=== PATIENT | male | born 1930 | race Caucasian/White ===

== ENCOUNTER 2016-12-25 07:59 | Emergency (ER) | payer MEDICARE, BC ==
--- NOTE | 2016-12-25 08:36 | ED ---
General Adult HPI - General Chief complaint: Recheck/Abnormal Lab/Rx Stated complaint: GAINED 7 LBS IN 1 DAY Time Seen by Provider: 12/25/16 08:23 Source: patient, family, RN notes reviewed Mode of arrival: wheelchair Limitations: no limitations - History of Present Illness Initial comments: Patient is a pleasant 86-year-old male presenting to the emergency department with concerns over weight gain. Patient has been home from [place] for 3 days. Family is concerned that patient gained 7 pounds since yesterday. They do regularly check his weight. Patient denies dyspnea. Patient is a poor historian and majority of history is taken from the son. Patient does have a history of renal and liver problems. Patient questions if he could have some chest discomfort earlier however family states this is chronic. - Related Data Home Medications Medication Instructions Recorded Confirmed Pantoprazole Sodium [Protonix] 40 mg PO DAILY 01/31/14 12/25/16 Atorvastatin [Lipitor] 10 mg PO HS 07/18/14 12/25/16 Metoprolol Tartrate [Lopressor] 25 mg PO BID 07/18/14 12/25/16 Spironolactone [Aldactone] 25 mg PO DAILY 07/18/14 12/25/16 Ascorbic Acid [Vitamin C] 500 mg PO HS 02/05/16 12/25/16 Donepezil [Aricept] 5 mg PO HS 02/05/16 12/25/16 Ferrous Sulfate [Iron (65 MG 325 mg PO DAILY 02/05/16 12/25/16 Elemental)] Furosemide [Lasix] 40 mg PO BID 02/05/16 12/25/16 Insulin Glargine,Hum.rec.anlog 16 units SQ DAILY 02/05/16 12/25/16 [Toujeo Solostar] Linagliptin [Tradjenta] 5 mg PO DAILY 02/05/16 12/25/16 Losartan [Cozaar] 25 mg PO HS 06/21/16 12/25/16 Nitroglycerin Sl Tabs [Nitrostat] 0.4 mg SUBLINGUAL Q5M PRN 06/21/16 12/25/16 Isosorbide Mononitrate ER [Imdur] 30 mg PO DAILY 12/25/16 12/25/16 Previous Rx's Medication Instructions Recorded Citalopram Hydrobromide [CeleXA] 10 mg PO DAILY #30 tab 04/07/14 Digoxin [Lanoxin] 125 mcg PO DAILY #0 07/24/14 Allergies Allergy/AdvReac Type Severity Reaction Status Date / Time No Known Allergies Allergy Verified 06/21/16 13:56 Review of Systems ROS Statement: Those systems with pertinent positive or pertinent negative responses have been documented in the HPI. ROS Other: All systems not noted in ROS Statement are negative. Constitutional: Denies: fever Eyes: Denies: eye pain ENT: Denies: ear pain Respiratory: Denies: cough, dyspnea Cardiovascular: Denies: chest pain Endocrine: Denies: fatigue Gastrointestinal: Denies: abdominal pain Genitourinary: Denies: urgency Musculoskeletal: Denies: back pain Skin: Denies: rash Neurological: Denies: headache Past Medical History Past Medical History: Coronary Artery Disease (CAD), Chest Pain / Angina, Heart Failure, Diabetes Mellitus, GI Bleed, Hyperlipidemia, Hypertension, Memory Impairment, Osteoarthritis (OA), Prostate Disorder, Renal Disease, Skin Disorder Additional Past Medical History / Comment(s): ANEMIA, IRON DEFICIENCY. RECENT SL COUGH. Memory loss has been progressivley getting worse. HAS PRE-CA LESIONS FACE. cysts on kidney, incont of urine History of Any Multi-Drug Resistant Organisms: None Reported Past Surgical History: AICD, Appendectomy, Cholecystectomy, Coronary Bypass/CABG , Heart Catheterization With Stent, Prostate Surgery, Tonsillectomy Additional Past Surgical History / Comment(s): AICD, ST CECE. CABG 1994, 1982. RESECTIO PSEUDOANEURYSM RT FEM ARTERY. TURP. pt had battery to aicd replaced this may 2014, RT EYE SX(HAD FLUID BEHIND EYE) Past Anesthesia/Blood Transfusion Reactions: No Reported Reaction Additional Past Anesthesia/Blood Transfusion Reaction / Comment(s): LAST TRANSFUSION 12/2013 Date of Last Stent Placement:: 2008 Type of Cardiac Device: Permanent Pacemaker, AICD Device Placement Date:: 2008 Past Psychological History: Anxiety Additional Psychological History / Comment(s): HX OF HALLUCINATIONS, 01/2014, PER DR MCCARTHY Smoking Status: Former smoker Past Alcohol Use History: None Reported Additional Past Alcohol Use History / Comment(s): STARTED SMOKING AT AGE [age] CIG/PER DAY, QUIT 1971 THEN STRATED FOR FEW MONTHS THEN QUIT. Past Drug Use History: None Reported - Past Family History Mother Family Medical History: Diabetes Mellitus Father Additional Family Medical History / Comment(s): emphysema General Exam Limitations: no limitations General appearance: alert, in no apparent distress Head exam: Present: atraumatic Eye exam: Present: PERRL, EOMI, scleral icterus ENT exam: Present: normal oropharynx Neck exam: Present: normal inspection Respiratory exam: Present: normal lung sounds bilaterally Cardiovascular Exam: Present: regular rate, normal rhythm GI/Abdominal exam: Present: soft. Absent: tenderness Extremities exam: Present: normal inspection Neurological exam: Present: alert Psychiatric exam: Present: normal affect, normal mood Skin exam: Present: other (Skin does appear somewhat jaundiced however this could be complicated by tanning of the skin.) Course Vital Signs 12/25/16 08:09 Temperature 97.9 F Pulse Rate 64 Respiratory 16 Rate Blood Pressure 127/60 O2 Sat by Pulse 97 Oximetry EKG Findings - EKG Comments: EKG Findings:: Paced rhythm at 64. QRS 144. QT 456. QTc 470. Left axis. Nonspecific intraventricular block. Nonspecific ST-T. Inferior Q waves Medical Decision Making - Medical Decision Making Patient reevaluated and resting comfortably in bed. Patient remained symptom- free. Patient still denies dyspnea. Daughter is present and comfortable with discharge home. She states she does have a plan for Lasix administration based on weight. Patient currently not on Lasix because his weight was okay prior to today. Case was discussed in detail with Dr. Mccarthy who does recommend discharge and 20 mg Lasix IV prior to this. - Lab Data Result diagrams: 12/25/16 08:32 12/25/16 08:32 Lab Results 12/25/16 12/25/16 12/25/16 Range/Units 08:32 08:32 08:32 WBC 6.9 (3.8-10.6) k/uL RBC 3.07 L (4.30-5.90) m/uL Hgb 9.7 L (13.0-17.5) gm/dL Hct 30.8 L (39.0-53.0) % MCV 100.5 H (80.0-100.0) fL MCH 31.5 (25.0-35.0) pg MCHC 31.4 (31.0-37.0) g/dL RDW 16.9 H (11.5-15.5) % Plt Count 118 L (150-450) k/uL Neutrophils % 83 % Lymphocytes % 7 % Monocytes % 6 % Eosinophils % 2 % Basophils % 1 % Neutrophils # 5.7 (1.3-7.7) k/uL Lymphocytes # 0.5 L (1.0-4.8) k/uL Monocytes # 0.4 (0-1.0) k/uL Eosinophils # 0.2 (0-0.7) k/uL Basophils # 0.1 (0-0.2) k/uL Hypochromasia Slight Anisocytosis Slight Macrocytosis Slight PT (9.0-12.0) sec INR (<1.1) APTT (22.0-30.0) sec Sodium 144 (137-145) mmol/L Potassium 4.9 (3.5-5.1) mmol/L Chloride 117 H (98-107) mmol/L Carbon Dioxide 16 L (22-30) mmol/L Anion Gap 11 mmol/L BUN 58 H (9-20) mg/dL Creatinine 1.42 H (0.66-1.25) mg/dL Est GFR (MDRD) Af Amer 57 (>60 ml/min/1.73 sqM) Est GFR (MDRD) Non-Af 47 (>60 ml/min/1.73 sqM) Glucose 115 H (74-99) mg/dL Calcium 8.8 (8.4-10.2) mg/dL Total Bilirubin 1.7 H (0.2-1.3) mg/dL AST 26 (17-59) U/L ALT 44 (21-72) U/L Alkaline Phosphatase 82 (38-126) U/L Total Creatine Kinase 83 (55-170) U/L CK-MB (CK-2) 2.7 H* (0.0-2.4) ng/mL CK-MB (CK-2) Rel Index 3.3 Troponin I 0.025 (0.000-0.034) ng/mL NT-Pro-B Natriuret Pep pg/mL Total Protein 6.8 (6.3-8.2) g/dL Albumin 4.0 (3.5-5.0) g/dL Urine Color Urine Appearance (Clear) Urine pH (5.0-8.0) Ur Specific [place] (1.001-1.035) Urine Protein (Negative) Urine Glucose (UA) (Negative) Urine Ketones (Negative) Urine Blood (Negative) Urine Nitrite (Negative) Urine Bilirubin (Negative) Urine Urobilinogen (<2.0) mg/dL Ur Leukocyte Esterase (Negative) Urine RBC (0-5) /hpf Urine WBC (0-5) /hpf Ur Squamous Epith Cells (0-4) /hpf Urine Bacteria (None) /hpf 12/25/16 12/25/16 12/25/16 Range/Units 08:32 08:32 09:28 WBC (3.8-10.6) k/uL RBC (4.30-5.90) m/uL Hgb (13.0-17.5) gm/dL Hct (39.0-53.0) % MCV (80.0-100.0) fL MCH (25.0-35.0) pg MCHC (31.0-37.0) g/dL RDW (11.5-15.5) % Plt Count (150-450) k/uL Neutrophils % % Lymphocytes % % Monocytes % % Eosinophils % % Basophils % % Neutrophils # (1.3-7.7) k/uL Lymphocytes # (1.0-4.8) k/uL Monocytes # (0-1.0) k/uL Eosinophils # (0-0.7) k/uL Basophils # (0-0.2) k/uL Hypochromasia Anisocytosis Macrocytosis PT 11.5 (9.0-12.0) sec INR 1.2 (<1.1) APTT 24.2 (22.0-30.0) sec Sodium (137-145) mmol/L Potassium (3.5-5.1) mmol/L Chloride (98-107) mmol/L Carbon Dioxide (22-30) mmol/L Anion Gap mmol/L BUN (9-20) mg/dL Creatinine (0.66-1.25) mg/dL Est GFR (MDRD) Af Amer (>60 ml/min/1.73 sqM) Est GFR (MDRD) Non-Af (>60 ml/min/1.73 sqM) Glucose (74-99) mg/dL Calcium (8.4-10.2) mg/dL Total Bilirubin (0.2-1.3) mg/dL AST (17-59) U/L ALT (21-72) U/L Alkaline Phosphatase (38-126) U/L Total Creatine Kinase (55-170) U/L CK-MB (CK-2) (0.0-2.4) ng/mL CK-MB (CK-2) Rel Index Troponin I (0.000-0.034) ng/mL NT-Pro-B Natriuret Pep 4220 pg/mL Total Protein (6.3-8.2) g/dL Albumin (3.5-5.0) g/dL Urine Color Yellow Urine Appearance Clear (Clear) Urine pH 5.0 (5.0-8.0) Ur Specific [place] 1.015 (1.001-1.035) Urine Protein Trace H (Negative) Urine Glucose (UA) Negative (Negative) Urine Ketones Negative (Negative) Urine Blood Small H (Negative) Urine Nitrite Negative (Negative) Urine Bilirubin Negative (Negative) Urine Urobilinogen <2.0 (<2.0) mg/dL Ur Leukocyte Esterase Trace H (Negative) Urine RBC 15 H (0-5) /hpf Urine WBC 7 H (0-5) /hpf Ur Squamous Epith Cells <1 (0-4) /hpf Urine Bacteria Rare H (None) /hpf - Radiology Data Radiology results: image reviewed (This x-ray does show cardiomegaly and some interstitial prominence. Stable right hilar density.) Disposition Clinical Impression: Congestive heart failure Disposition: HOME SELF-CARE Condition: Stable Instructions: Heart Failure (ED) Additional Instructions: Please follow-up with Dr. Mccarthy in the next couple of days for recheck. Return for difficulty in breathing, increased weight gain, fevers, worsening symptoms or other concerns. Referrals: Boni Mccarthy MD [Primary Care Provider] - 1-2 days
[2016-12-25 08:57] LABS: Anisocytosis Slight; Basophils # (A) 0.1 k/uL (0-0.2); Basophils % (A) 1 %; CH 31.7; CHCM 31.8; Eosinophils # (A) 0.2 k/uL (0-0.7); Eosinophils % (A) 2 %; HCT 30.8 % (39.0-53.0); HDW 3.21; HGB 9.7 gm/dL (13.0-17.5); Hypochromasia Slight; Luc # (Auto) 0.08; Luc % (Auto) 1; Lymphocytes # (A) 0.5 k/uL (1.0-4.8); Lymphocytes % (A) 7 %; MCH 31.5 pg (25.0-35.0); MCHC 31.4 g/dL (31.0-37.0); MCV 100.5 fL (80.0-100.0); Macrocytosis Slight; Mean Platelet Volume 8.4; Monocytes # (A) 0.4 k/uL (0-1.0); Monocytes % (A) 6 %; Neutrophils # (A) 5.7 k/uL (1.3-7.7); Neutrophils % (A) 83 %; RBC 3.07 m/uL (4.30-5.90); RDW 16.9 % (11.5-15.5); WBC 6.9 k/uL (3.8-10.6); WBC (Perox) 6.81
[2016-12-25 09:03] LABS: INR 1.2 (<1.1); Partial Thromboplastin Time 24.2 sec (22.0-30.0); Prothrombin Time 11.5 sec (9.0-12.0)
[2016-12-25 09:05] LABS: Calcium 8.8 mg/dL (8.4-10.2); Potassium 4.9 mmol/L (3.5-5.1); Total Bilirubin 1.7 mg/dL (0.2-1.3); Total Protein 6.8 g/dL (6.3-8.2)
--- NOTE | 2016-12-25 09:19 | XR ---
EXAMINATION TYPE: XR chest 2V DATE OF EXAM: 12/25/2016 8:59 AM COMPARISON: 02/05/2016 an 07/20/2014 HISTORY: 86-year-old male with weakness and left lower chest pain TECHNIQUE: AP and lateral views FINDINGS: Left anterior chest wall ICD generator with right atrial and right ventricular leads. Median sternoto my wires are present. Rounded right hilar density. Diffuse interstitial prominence similar to prior. Vascular crowding due to lower lung volumes. No kimberlee consolidation or significant pleural effusion seen. IMPRESSION: 1. Cardiomegaly with diffuse interstitial prominence which may in part be chronic. Correlate for pulm onary vascular congestion. 2. Rounded right hilar density stable from 07/20/2014 suggests enlargement of the central pulmonary a rteries and pulmonary arterial hypertension. 3. No acute change otherwise seen.
[2016-12-25 09:39] LABS: Troponin I 0.025 ng/mL (0.000-0.034)
[2016-12-25 09:40] LABS: Creatine Kinase MB 2.7 ng/mL (0.0-2.4)
[2016-12-25 09:56] LABS: Appearance,Urine Clear (Clear); Bacteria,Urine Rare /hpf; Bilirubin,Urine Negative (Negative); Glucose,Urine (UA) Negative (Negative); Ketones,Urine Negative (Negative); Leukocyte Esterase,Urine Trace (Negative); Nitrite,Urine Negative (Negative); Particle Count 1586; Protein,Urine Trace (Negative); RBC,Urine 15 /hpf (0-5); Specific Gravity,Urine 1.015 (1.001-1.035); Squamous Epithelial Cell,Urine <1 /hpf (0-4); UA Billing (MACRO vs. MICRO) MICRO; Urobilinogen,Urine <2.0 mg/dL (<2.0); WBC,Urine 7 /hpf (0-5)
[2016-12-25] MEDS ORDERED: FUROSEMIDE 10 MG/ML 4 ML VIAL IV STA (10:32)
[2016-12-25 10:51] VITALS: BP 144/62; PULSE 63; RESP 18; TEMP 97.6
== END 2016-12-25 10:54 | disposition home or self-care (01) ==
LOC: EC 07:59
DX: I50.9 Heart failure, unspecified (principal); I51.7 Cardiomegaly; R91.8 Other nonspecific abnormal finding of lung field; E11.9 Type 2 diabetes mellitus without complications; E78.5 Hyperlipidemia, unspecified; I10 Essential (primary) hypertension; D50.9 Iron deficiency anemia, unspecified; I25.10 Atherosclerotic heart disease of native coronary artery without angina pectoris; Z87.891 Personal history of nicotine dependence; Z79.4 Long term (current) use of insulin; Z79.899 Other long term (current) drug therapy; Z87.448 Personal history of other diseases of urinary system; Z86.79 Personal history of other diseases of the circulatory system; Z87.19 Personal history of other diseases of the digestive system; Z95.810 Presence of automatic (implantable) cardiac defibrillator; Z95.1 Presence of aortocoronary bypass graft
CPT/HCPCS: 36415; 93005; 83880; 80053; 82550; 82553; 84484; 85025; 85610; 85730; 81001; 71020; 99284; 96374; J1940

== ENCOUNTER 2016-12-27 14:54 | Inpatient (IN) | payer MEDICARE, BC ==
--- NOTE | 2016-12-27 17:00 | XR ---
EXAMINATION TYPE: XR chest 2V DATE OF EXAM: 12/27/2016 4:54 PM COMPARISON: 12/25/2016 INDICATION: Flulike symptoms, pain TECHNIQUE: Single frontal view of the chest is obtained. FINDINGS: The heart size is prominent. The pulmonary vasculature is prominent. Diffuse increased lung markings are present. Correlate for early pulmonary edema. Small posterior ple ural effusions are present on the lateral projection. Electronic device overlies left chest. IMPRESSION: 1. Findings suggestive for early congestive heart failure. Clinical correlation and follow-up is shakeel mmended.
[2016-12-27] MEDS ORDERED: OSELTAMIVIR 75 MG CAP PO STA (17:26)
[2016-12-27] MEDS ORDERED: FUROSEMIDE 10 MG/ML 4 ML VIAL IV STA (17:26)
--- NOTE | 2016-12-27 17:35 | ED ---
General Adult HPI - General Chief complaint: Upper Respiratory Infection Stated complaint: flu symptoms/SOB Time Seen by Provider: 12/27/16 16:07 Source: patient, family, RN notes reviewed, old records reviewed Mode of arrival: wheelchair Limitations: no limitations - History of Present Illness Initial comments: Chief complaint and history of present illness a 86-year-old male was seen emergency room 3 days ago. At that time he was shown to have mildly increased pulmonary congestion. He was given Lasix in emergency room diuresis and felt much better. Daughter reports she had 2 good days at home and then today she noticed he was coughing productive sounding cough and lower extremity swelling. The patient has not been on Lasix while at home for the past 2 days. Patient did not receive a flu shot this year. - Related Data Home Medications Medication Instructions Recorded Confirmed Pantoprazole Sodium [Protonix] 40 mg PO DAILY 01/31/14 12/27/16 Atorvastatin [Lipitor] 10 mg PO HS 07/18/14 12/27/16 Metoprolol Tartrate [Lopressor] 25 mg PO BID 07/18/14 12/27/16 Ascorbic Acid [Vitamin C] 500 mg PO HS 02/05/16 12/27/16 Donepezil [Aricept] 5 mg PO HS 02/05/16 12/27/16 Ferrous Sulfate [Iron (65 MG 325 mg PO DAILY 02/05/16 12/27/16 Elemental)] Furosemide [Lasix] 40 mg PO DIRECTED PRN 02/05/16 12/27/16 Insulin Glargine,Hum.rec.anlog 16 units SQ DAILY 02/05/16 12/27/16 [Toujeo Solostar] Linagliptin [Tradjenta] 5 mg PO DAILY 02/05/16 12/27/16 Losartan [Cozaar] 25 mg PO HS 06/21/16 12/27/16 Nitroglycerin Sl Tabs [Nitrostat] 0.4 mg SUBLINGUAL Q5M PRN 06/21/16 12/27/16 Isosorbide Mononitrate ER [Imdur] 30 mg PO DAILY 12/25/16 12/27/16 Tamsulosin HCl [Flomax] 0.4 mg PO QAM 12/27/16 12/27/16 Previous Rx's Medication Instructions Recorded Citalopram Hydrobromide [CeleXA] 10 mg PO DAILY #30 tab 04/07/14 Digoxin [Lanoxin] 125 mcg PO DAILY #0 07/24/14 Allergies Allergy/AdvReac Type Severity Reaction Status Date / Time No Known Allergies Allergy Verified 12/27/16 15:58 Review of Systems ROS Statement: Those systems with pertinent positive or pertinent negative responses have been documented in the HPI. Review of systems. The patient denies any headache or visual acuity changes. Denies chest pain but he has a productive sounding cough. Sounds but per daughter. No abdominal pain no nausea no vomiting no diarrhea. No change in appetite. He does have peripheral leg edema increased today over yesterday. All systems are reviewed. Past medical problems significant for iron deficiency anemia, cysts on kidneys, precancerous lesions on the face. The patient has an AICD other medical problems include previous angina, diabetes mellitus, previous GI bleed, hyperlipidemia, hypertension, memory impairment, osteoarthritis, prostate disorder, renal failure, stage III. Also past history of anxiety. ROS Other: All systems not noted in ROS Statement are negative. Past Medical History Past Medical History: Coronary Artery Disease (CAD), Chest Pain / Angina, Heart Failure, Diabetes Mellitus, GI Bleed, Hyperlipidemia, Hypertension, Memory Impairment, Osteoarthritis (OA), Prostate Disorder, Renal Disease, Skin Disorder Additional Past Medical History / Comment(s): ANEMIA, IRON DEFICIENCY. RECENT SL COUGH. Memory loss has been progressivley getting worse. HAS PRE-CA LESIONS FACE. cysts on kidney, incont of urine History of Any Multi-Drug Resistant Organisms: None Reported Past Surgical History: AICD, Appendectomy, Cholecystectomy, Coronary Bypass/CABG , Heart Catheterization With Stent, Prostate Surgery, Tonsillectomy Additional Past Surgical History / Comment(s): AICD, ST CECE. CABG 1994, 1982. RESECTIO PSEUDOANEURYSM RT FEM ARTERY. TURP. pt had battery to aicd replaced this may 2014, RT EYE SX(HAD FLUID BEHIND EYE) Past Anesthesia/Blood Transfusion Reactions: No Reported Reaction Additional Past Anesthesia/Blood Transfusion Reaction / Comment(s): LAST TRANSFUSION 12/2013 Date of Last Stent Placement:: 2008 Type of Cardiac Device: Permanent Pacemaker, AICD Device Placement Date:: 2008 Past Psychological History: Anxiety Additional Psychological History / Comment(s): HX OF HALLUCINATIONS, 01/2014, PER DR SETHI Smoking Status: Former smoker Past Alcohol Use History: None Reported Additional Past Alcohol Use History / Comment(s): STARTED SMOKING AT AGE [age] CIG/PER DAY, QUIT 1971 THEN STRATED FOR FEW MONTHS THEN QUIT. Past Drug Use History: None Reported - Past Family History Mother Family Medical History: Diabetes Mellitus Father Additional Family Medical History / Comment(s): emphysema General Exam - General Exam Comments Initial Comments: General: The patient is awake and alert, complains of a cough and being short of breath. Vital signs show temperature 99.3 pulse 71 respiratory rate 20 pulse ox 95% room air blood pressure 135/77 Eye: Pupils are equal, round and reactive to light, extra-ocular movements are intact ; there is normal conjunctiva bilaterally. No signs of icterus. Ears, nose, mouth and throat: There are moist mucous membranes Neck: The neck is supple, there is no tenderness Cardiovascular: Soft blowing murmur over both aortic and mitral valve areas. Respiratory: Productive sounding cough, And rales right base area and Gastrointestinal: Soft, non-distended, non-tender abdomen without masses or organomegaly noted. Small lipoma versus small ventral hernia. Back: There is no tenderness to palpation in the midline. There is no obvious deformity. No rashes noted. Musculoskeletal: Normal range of motion of extremities. Pedal edema, pitting. Vascular status intact. Neurological: No complaints of or any evidence of neuro deficits. Skin: Skin is warm and dry and no rashes or lesions are noted. Limitations: no limitations Course Vital Signs 12/27/16 12/27/16 15:15 18:01 Temperature 99.3 F 97.6 F Pulse Rate 71 70 Respiratory 20 18 Rate Blood Pressure 135/77 147/70 O2 Sat by Pulse 95 93 L Oximetry Medical Decision Making - Medical Decision Making Medical decision making; the patient's lab was positive for influenza B. Chest x-ray is done and compared to one that is been done just several days ago. And the radiologist's impression is findings suggestive for early congestive heart failure. He also mentions diffuse increased lung markings present. Correlate for early pulmonary edema. Small posterior pleural effusions are present on the lateral projections. As read by Dr. Rogel Patient was started on Tamiflu. Also received IV Lasix. The patient be admitted to the hospital for CHF. The case discussed with Dr. Porter on-call for Dr. Sethi. Patient be admitted to Dr. Navdeep Solomon requesting cardiology consultation for CHF. - Lab Data Lab Results 12/27/16 Range/Units 16:47 Influenza Type A RNA Not Detected (Not Detectd) Influenza Type B (PCR) Detected H (Not Detectd) Disposition Clinical Impression: Influenza B, CHF (congestive heart failure) Disposition: ADMITTED IP TO THIS HOSP Condition: Fair
[2016-12-27 18:22] LABS: Anisocytosis Slight; Basophils % (A) 1 %; CH 31.7; CHCM 32.1; Eosinophils # (A) 0.1 k/uL (0-0.7); Eosinophils % (A) 3 %; HCT 29.3 % (39.0-53.0); HDW 3.19; HGB 9.2 gm/dL (13.0-17.5); Hypochromasia Slight; Luc # (Auto) 0.13; Luc % (Auto) 3; Lymphocytes # (A) 0.4 k/uL (1.0-4.8); Lymphocytes % (A) 9 %; MCH 31.4 pg (25.0-35.0); MCHC 31.6 g/dL (31.0-37.0); MCV 99.6 fL (80.0-100.0); Macrocytosis Slight; Monocytes # (A) 0.3 k/uL (0-1.0); Monocytes % (A) 6 %; Neutrophils # (A) 3.9 k/uL (1.3-7.7); Neutrophils % (A) 79 %; RBC 2.94 m/uL (4.30-5.90); WBC 4.9 k/uL (3.8-10.6); WBC (Perox) 4.94
[2016-12-27] MEDS ORDERED: NALOXONE 0.4 MG/ML 1 ML VIAL IV PRN (18:25)
[2016-12-27] MEDS ORDERED: LEVOFLOXACIN 500MG-D5W PMX 500 MG in DEXTROSE/WATER 1 100ML.BAG IVPB STA (18:30)
[2016-12-27] MEDS ORDERED: SODIUM CHLORIDE 0.9% 1,000 ML IV SCH (18:30)
[2016-12-27 18:43] LABS: INR 1.3 (<1.1); Partial Thromboplastin Time 26.3 sec (22.0-30.0); Prothrombin Time 12.9 sec (9.0-12.0)
[2016-12-27 18:44] LABS: Calcium 8.7 mg/dL (8.4-10.2); Potassium 4.6 mmol/L (3.5-5.1); Total Bilirubin 2.9 mg/dL (0.2-1.3); Total Protein 6.5 g/dL (6.3-8.2)
[2016-12-27 18:53] LABS: Creatine Kinase MB 2.4 ng/mL (0.0-2.4)
[2016-12-27 18:55] LABS: Appearance,Urine Clear (Clear); Bilirubin,Urine Negative (Negative); Glucose,Urine (UA) Negative (Negative); Ketones,Urine Negative (Negative); Leukocyte Esterase,Urine Negative (Negative); Nitrite,Urine Negative (Negative); Protein,Urine Trace (Negative); Specific Gravity,Urine 1.012 (1.001-1.035); UA Billing (MACRO vs. MICRO) CHEM; Urobilinogen,Urine <2.0 mg/dL (<2.0)
[2016-12-27 19:05] LABS: Troponin I 0.037 ng/mL (0.000-0.034)
[2016-12-27] MEDS: ATORVASTATIN 10 MG TAB PO SCH (20:42)
[2016-12-27] MEDS: METOPROLOL TARTRATE 25 MG TAB PO SCH (20:42)
[2016-12-27] MEDS: LOSARTAN 25 MG TAB PO SCH (20:42)
[2016-12-27 21:06] LABS: Glucose,Whole Blood 203 mg/dL (75-99)
[2016-12-27] MEDS: INSULIN LISPRO (humaLOG) 300 UNIT/3 ML VIAL SQ SCH (21:53)
[2016-12-28] MEDS: FUROSEMIDE 10 MG/ML 4 ML VIAL IV SCH ×4 (00:07→23:30)
[2016-12-28 05:57] LABS: Glucose,Whole Blood 125 mg/dL (75-99)
[2016-12-28] MEDS: INSULIN LISPRO (humaLOG) 300 UNIT/3 ML VIAL SQ SCH ×4 (06:30→20:48)
[2016-12-28] MEDS: PANTOPRAZOLE 40 MG TABLET PO SCH (06:39)
[2016-12-28] MEDS: METOPROLOL TARTRATE 25 MG TAB PO SCH ×2 (08:36→20:37)
[2016-12-28] MEDS: ISOSORBIDE MONONITRATE ER 30 MG TAB.ER.24H PO SCH (08:37)
[2016-12-28] MEDS: DIGOXIN 125 MCG TAB PO SCH (08:37)
[2016-12-28] MEDS: LINAGLIPTIN 5 MG TABLET PO SCH (08:37)
[2016-12-28] MEDS: CITALOPRAM HYDROBROMIDE 10 MG TAB PO SCH (08:37)
[2016-12-28] MEDS: TAMSULOSIN 0.4 MG CAP.ER.24H PO SCH (08:37)
[2016-12-28] MEDS: FERROUS SULFATE 325 MG TAB PO SCH (08:37)
[2016-12-28] MEDS ORDERED: OSELTAMIVIR 75 MG CAP PO SCH (09:00)
--- NOTE | 2016-12-28 10:25 | P.CRDCN ---
History of Present Illness Consult date: 12/28/16 History of present illness: This is a 86-year-old gentleman with history of ischemic heart disease, cardiomyopathy, AICD implantation was in [place] and apparently was admitted to the hospital with difficulty urinating and with collapsed external related to clots. Apparently he had Avendaño catheter insertion and irrigation. At the time he was taken off the Lasix. Since coming home, Patient has gained several pounds. He is having fever and chills and also some shortness of breath. Patient was brought to the emergency room. A chest x-ray showed evidence of congestion. He also had some pedal edema. He was also tested positive for H. influenzae. He is currently on IV Lasix and seemed today receiving. He seemed to be feeling better. His troponin is mildly elevated. He did not have any chest pain. We'll continue his current medical therapy. Follow his electrolytes closely. Possibly changes IV Lasix to by mouth Lasix in the morning. I will also get a digoxin level Review of Systems REVIEW OF SYSTEMS: CONSTITUTIONAL:. Alert and oriented EYES: Denies diplopia, blurring of vision EARS, NOSE, MOUTH, THROAT: Denies headaches, denies sore throat. CARDIOVASCULAR: As per HPI RESPIRATORY: As per HPI GASTROINTESTINAL: Denies change in appetite, denies abdominal pain, denies diarrhea GENITOURINARY: Denies hematuria, denies infections. MUSKULOSKELETAL: Denies pain, denies swelling. Denies any cramps or claudication INTEGUMENTARY: Denies rash, denies eczema. NEUROLOGICAL: Denies focal weakness, or visual disturbance. Denies any dizziness or syncope PSYCHIATRIC: Denies anxiety, denies depression. HEMATOLOGIC/LYMPHATIC: Denies any bleeding, denies enlarged lymph nodes. Past Medical History Past Medical History: Coronary Artery Disease (CAD), Chest Pain / Angina, Heart Failure, Diabetes Mellitus, GI Bleed, Hyperlipidemia, Hypertension, Memory Impairment, Osteoarthritis (OA), Prostate Disorder, Renal Disease, Skin Disorder Additional Past Medical History / Comment(s): ANEMIA, IRON DEFICIENCY. RECENT SL COUGH. Memory loss has been progressivley getting worse. HAS PRE-CA LESIONS FACE. cysts on kidney, incont of urine History of Any Multi-Drug Resistant Organisms: None Reported Past Surgical History: AICD, Appendectomy, Cholecystectomy, Coronary Bypass/CABG , Heart Catheterization With Stent, Prostate Surgery, Tonsillectomy Additional Past Surgical History / Comment(s): AICD, ST CECE. CABG 1994, 1982. RESECTIO PSEUDOANEURYSM RT FEM ARTERY. TURP. pt had battery to aicd replaced this may 2014, RT EYE SX(HAD FLUID BEHIND EYE) Past Anesthesia/Blood Transfusion Reactions: No Reported Reaction Additional Past Anesthesia/Blood Transfusion Reaction / Comment(s): LAST TRANSFUSION 12/2013 Date of Last Stent Placement:: 2008 Type of Cardiac Device: Permanent Pacemaker, AICD Device Placement Date:: 2008 Past Psychological History: Anxiety Additional Psychological History / Comment(s): HX OF HALLUCINATIONS, 01/2014, PER DR MCCARTHY Smoking Status: Former smoker Past Alcohol Use History: None Reported Additional Past Alcohol Use History / Comment(s): STARTED SMOKING AT AGE 19 25 CIG/PER DAY, QUIT 1972 THEN STRATED FOR FEW MONTHS THEN QUIT. Past Drug Use History: None Reported - Past Family History Mother Family Medical History: Diabetes Mellitus Father Additional Family Medical History / Comment(s): emphysema Medications and Allergies Home Medications Medication Instructions Recorded Confirmed Type Pantoprazole Sodium [Protonix] 40 mg PO DAILY 01/31/14 12/27/16 History Atorvastatin [Lipitor] 10 mg PO HS 07/18/14 12/27/16 History Metoprolol Tartrate [Lopressor] 25 mg PO BID 07/18/14 12/27/16 History Ascorbic Acid [Vitamin C] 500 mg PO HS 02/05/16 12/27/16 History Donepezil [Aricept] 5 mg PO HS 02/05/16 12/27/16 History Ferrous Sulfate [Iron (65 MG 325 mg PO DAILY 02/05/16 12/27/16 History Elemental)] Furosemide [Lasix] 40 mg PO DIRECTED PRN 02/05/16 12/27/16 History Insulin Glargine,Hum.rec.anlog 16 units SQ DAILY 02/05/16 12/27/16 History [Toujeo Solostar] Linagliptin [Tradjenta] 5 mg PO DAILY 02/05/16 12/27/16 History Losartan [Cozaar] 25 mg PO HS 06/21/16 12/27/16 History Nitroglycerin Sl Tabs [Nitrostat] 0.4 mg SUBLINGUAL Q5M PRN 10/15/16 04/22/17 History Isosorbide Mononitrate ER [Imdur] 30 mg PO DAILY 12/25/16 12/27/16 History Tamsulosin HCl [Flomax] 0.4 mg PO QAM 12/27/16 12/27/16 History Allergies Allergy/AdvReac Type Severity Reaction Status Date / Time No Known Allergies Allergy Verified 12/27/16 15:58 Physical Exam Vitals: Vital Signs Temp Pulse Pulse Resp BP BP Pulse Ox 12/28/16 04:00 64 20 127/69 93 L 12/28/16 00:00 98.0 F 69 20 126/67 98 12/27/16 19:19 97.7 F 68 16 129/61 95 12/27/16 19:00 98 F 62 18 156/67 95 Intake and Output 12/27/16 12/28/16 12/28/16 22:59 06:59 14:59 Intake Total 400 500 Output Total 375 Balance 400 125 Intake: Intake, IV Titration 200 Amount Levofloxacin 500Mg-D5w 100 Pmx 500 mg In Dextrose/ Water 1 100ml.bag @ 100 mls/hr IVPB ONCE STA Rx#: [id number] Sodium Chloride 0.9% 1, 100 000 ml @ 50 mls/hr IV . Q20H [facility] Rx#:[id number] Oral 200 500 Output: Urine 375 Other: Voiding Method Toilet # Voids 3 Weight 80.1 kg 80.5 kg GENERAL EXAM: Patient is alert and oriented and doesn't appear to be in any acute distress HEENT: Normocephalic. Normal reaction of pupils, equal size, normal range of extraocular motion. No erythema or exudates in the throat. NECK: No masses, no nuchal rigidity. CHEST: No chest wall deformity. LUNGS: Equal air entry with no crackles or wheeze. Diminished breath sounds at bases HEART: S1 and S2 normal with no audible mumurs or gallops. Regular rhythm, femorals equal on both sides.. ABDOMEN: No hepatosplenomegaly, normal bowel sounds, no guarding or rigidity. SKIN: No rashes CENTRAL NERVOUS SYSTEM: No focal deficits. EXTREMITIES: No cyanosis, clubbing or edema. Results 12/27/16 17:52 12/27/16 17:52 Current Medications Generic Name Dose Route Start Last Admin Trade Name Freq PRN Reason Stop Dose Admin Acetaminophen 650 mg 12/27/16 18:25 Tylenol Tab PO Q6HR PRN Mild Pain or Fever > 100.5 Atorvastatin Calcium 10 mg 12/27/16 21:00 12/27/16 20:42 Lipitor PO 10 mg HS [facility] Administration Citalopram Hydrobromide 10 mg 12/28/16 09:00 12/28/16 08:37 Celexa PO 10 mg DAILY [facility] Administration Digoxin 125 mcg 12/28/16 09:00 12/28/16 08:37 Lanoxin PO 125 mcg DAILY [facility] Administration Ferrous Sulfate 325 mg 12/28/16 09:00 12/28/16 08:37 Feosol PO 325 mg DAILY [facility] Administration Furosemide 40 mg 12/28/16 00:00 12/28/16 08:37 Lasix IV 40 mg Q8HR [facility] Administration Sodium Chloride 1,000 mls @ 50 mls/hr 12/27/16 18:30 12/27/16 20:42 Saline 0.9% IV 50 mls/hr .Q20H [facility] Administration Levofloxacin 500 mg/ IV 100 mls @ 100 mls/hr 12/28/16 19:00 Solution IVPB Q24H [facility] Insulin Human Lispro 0 unit 12/27/16 21:00 12/28/16 06:30 Humalog SQ Not Given ACHS [facility] Protocol Isosorbide Mononitrate 30 mg 12/28/16 09:00 12/28/16 08:37 Imdur PO 30 mg DAILY [facility] Administration Linagliptin 5 mg 12/28/16 09:00 12/28/16 08:37 Tradjenta PO 5 mg DAILY [facility] Administration Losartan Potassium 25 mg 12/27/16 21:00 12/27/16 20:42 Cozaar PO 25 mg HS [facility] Administration Metoprolol Tartrate 25 mg 12/27/16 21:00 12/28/16 08:36 Lopressor PO 25 mg BID [facility] Administration Naloxone HCl 0.2 mg 12/27/16 18:25 Narcan IV Q2M PRN Opioid Reversal Oseltamivir Phosphate 75 mg 12/28/16 09:00 12/28/16 08:37 Tamiflu PO 01/01/17 09:01 75 mg BID [facility] Administration Pantoprazole Sodium 40 mg 12/28/16 07:30 12/28/16 06:39 Protonix PO 40 mg AC-[id number] [facility] Administration Tamsulosin HCl 0.4 mg 12/28/16 09:00 12/28/16 08:37 Flomax PO 0.4 mg QAM [facility] Administration Intake and Output 12/27/16 12/28/16 12/28/16 22:59 06:59 14:59 Intake Total 400 500 Output Total 375 Balance 400 125 Intake: Intake, IV Titration 200 Amount Levofloxacin 500Mg-D5w 100 Pmx 500 mg In Dextrose/ Water 1 100ml.bag @ 100 mls/hr IVPB ONCE STA Rx#: [id number] Sodium Chloride 0.9% 1, 100 000 ml @ 50 mls/hr IV . Q20H [facility] Rx#:[id number] Oral 200 500 Output: Urine 375 Other: Voiding Method Toilet # Voids 3 Weight 80.1 kg 80.5 kg EKG Interpretations (text) Paced rhythm Assessment and Plan (1) Cardiomyopathy Status: Acute (2) CHF (congestive heart failure) Status: Acute (3) Influenza B Status: Acute (4) Anemia associated with acute blood loss Status: Acute (5) Congestive heart failure Status: Acute Plan: Continue with current medical therapy with intravenous Lasix. Get a digoxin level. Continue antibiotics. Follow electrolytes. Change to by mouth Lasix in the morning. Further recommendations depend upon the clinical course
[2016-12-28 12:26] LABS: Glucose,Whole Blood 120 mg/dL (75-99)
[2016-12-28 17:22] LABS: Glucose,Whole Blood 112 mg/dL (75-99)
--- NOTE | 2016-12-28 17:45 | HP ---
DATE OF ADMISSION: 12/27/2016 This is an 86-year-old male who was brought to the emergency room because he was gaining weight and getting short of breath. He was progressively getting worse for the past 2 to 3 days. Apparently, he was in [place] and about 3 to 4 days ago before coming to [place], he was admitted to the hospital in [place] with difficulty in urinating and also having hematuria. The catheter was inserted and the bleeding stopped and he was placed on Flomax and patient came to [place] and his family members noticed he was gaining weight and he gained several pounds during these 2 to 3 days. Apparently he was in the hospital in [place], his Lasix was discontinued and he was not taking his Lasix since then and he came to [facility] emergency room 2 days ago and he was found to have congestive heart failure. Patient was discharged home with instructions to start back on Lasix. Apparently, he was not feeling he was getting better and he continued to gain and become more and more short of breath. He was brought in to the emergency room today. The patient was found to have congestive heart failure and he was evaluated again in the emergency room. His chest x-ray was consistent with congestive heart failure and there was cardiomegaly. His CBC showed a WBC count of 4.9, hemoglobin 9.2, platelet count 103,000. His urinalysis was negative for any blood. Sodium 142, potassium 4.1; BUN 61, creatinine 1.5. His BNP was 6780. He was also found to be positive for influenza B and patient was admitted to the hospital for further evaluation and treatment. His past medical history reveals that he has a long-standing history of coronary artery disease. He has ischemic cardiomyopathy and chronic congestive heart failure. He also has had an AICD implanted in the past and he also has hypertensive cardiovascular disease, diabetes mellitus, and early dementia. His current medications are: 1. Lipitor 10 mg p.o. daily. 2. Protonix 40 mg p.o. daily. 3. Cozaar 20 mg daily. 4. Metoprolol 25 mg p.o. b.i.d. 5. Nitroglycerin p.r.n. sublingual. 6. He is on Tradjenta 5 mg daily. 7. Imdur 30 mg p.o. daily. 8. He is also on insulin ( ) units daily. 9. Ferrous sulfate 325 mg p.o. daily. 10. Aricept 5 mg daily. 11. Digoxin 125 mcg daily. 12. Celexa 10 mg daily. 13. Flomax 0.4 mg daily. He has no known drug allergies. He used to be a former smoker. FAMILY HISTORY: Positive for diabetes mellitus and coronary artery disease. REVIEW OF SYSTEMS: Patient denies any headache. Appetite has been poor lately. He has no chest pain. He has no cough. He has no abdominal pain. He has no polyuria or dysuria. He has had hematuria recently and also has difficulty in urinating recently and appears improved with the Flomax. He has impaired memory. No other neurological symptoms. Physical examination reveals an 86-year-old male who is alert and oriented and he is in no acute distress. There is no jaundice. There is no generalized lymphadenopathy. There are no petechiae or bruises. Examination of the ENT negative. Neck is supple. There is no jugular venous distention. There is no goiter. There is no carotid bruit. His temperature of 97.6, respirations 18, pulse 70 per minute, blood pressure 147/70. Examination of the ENT negative. Neck is supple. There is no jugular venous distention. There is no goiter. There is no carotid bruit. Heart is in irregular rhythm. Lungs moist rales heard bilaterally. ABDOMEN: Soft and nontender. There is no mass palpable. Examination of the lower extremities reveal no pitting edema. Neurologic examination does not reveal any localizing signs. IMPRESSION: 1. Acute on chronic congestive heart failure, possibly asystole. 2. Ischemic cardiomyopathy. 3. Coronary artery disease, status post coronary artery bypass graft and stent placements in the past. 4. Past history of automatic implantable cardioverter-defibrillator implantation. 5. Hypertensive cardiovascular disease. 6. Anemia, possibly due to acute blood loss from recent hematuria. 7. Early dementia. 8. Benign prostatic hypertrophy. PLAN: The patient will be admitted to hospital. His heart monitor with telemetry and will have cardiology consultation and we will treat him with IV Lasix and place him back on all his previous home medications. Prognosis is guarded. The patient was seen by me in the emergency room as he is waiting for a room. His primary care physician is Dr. Elizalde and I saw the patient for Dr. Elizalde as I am covering him, I am covering Dr. Elizalde this weekend. Prognosis is guarded. The diagnoses, prognosis, and therapeutic plans were discussed in detail with the patient and also with his daughter.
--- NOTE | 2016-12-28 17:48 | PN ---
This is an 86-year-old male who was admitted to the hospital with CHF and also he was positive for influenza B. Patient is known to have ischemic cardiomyopathy and patient was off Lasix for 3 to 4 days and patient started gaining weight with fluid retention and shortness of breath and he was admitted to the hospital for further evaluation and treatment. At the time of admission, the patient also had a markedly elevated BNP. He is known to have ischemic cardiomyopathy and chronic congestive heart failure. The patient was started on IV Lasix and placed back on his previous home medications. The patient was seen by Dr. Shah patient is currently receiving IV Lasix. The patient has started feeling better. He is dyspneic. He also has been started on Tamiflu, as he was positive for influenza B. He has been placed back on his previous home medications. About 4 to 5 days prior to admission, the patient was in [place] and he was in a hospital therefore for hematuria. At the time of admission to the ER, his urinalysis did not show any blood in the urine; patient's daughter has an appointment for him to see Dr. Martin for further evaluation of the hematuria. Patient is almost asymptomatic today and will continue current medications. Cardiology is following the patient. Prognosis is guarded. The diagnoses, prognosis, and therapeutic plans were discussed in detail with the patient and also with the patient's daughter today. I saw the patient today for Dr. Sethi, who is his primary care physician, and I am covering Dr. Sethi this weekend. Dr. Sethi will be back to work tomorrow and he will resume care of the patient tomorrow.
[2016-12-28] MEDS ORDERED: LEVOFLOXACIN 500MG-D5W PMX 500 MG in DEXTROSE/WATER 1 100ML.BAG IVPB SCH (19:00)
[2016-12-28 20:03] LABS: Glucose,Whole Blood 145 mg/dL (75-99)
[2016-12-28] MEDS: ATORVASTATIN 10 MG TAB PO SCH (20:36)
[2016-12-28] MEDS: LOSARTAN 25 MG TAB PO SCH (20:37)
[2016-12-28] MEDS: ACETAMINOPHEN TAB 325 MG TAB PO PRN (20:37)
[2016-12-28] MEDS: OSELTAMIVIR 60 MG/10 ML ORAL SYRINGE PO SCH (20:40)
[2016-12-29 06:19] LABS: Glucose,Whole Blood 101 mg/dL (75-99)
[2016-12-29] MEDS: INSULIN LISPRO (humaLOG) 300 UNIT/3 ML VIAL SQ SCH ×4 (06:23→20:48)
[2016-12-29] MEDS: PANTOPRAZOLE 40 MG TABLET PO SCH (06:24)
[2016-12-29 07:04] LABS: Calcium 8.6 mg/dL (8.4-10.2); Potassium 3.8 mmol/L (3.5-5.1)
--- NOTE | 2016-12-29 08:48 | XR ---
EXAMINATION TYPE: XR chest 2V DATE OF EXAM: 12/29/2016 6:51 AM COMPARISON: 12/27/2016 TECHNIQUE: PA and lateral views submitted. HISTORY: CHF FINDINGS: Heart is enlarged and there is some enlargement of the right hilum. Diffuse interstitial pattern seen with tiny right effusion. Cardiac device noted. Arthropathy of the shoulders. Hypertrophic change of the spine. Surgical change in the upper abdomen with vascular calcifications. IMPRESSION: 1. Correlate for mild CHF 2. Stable right hilar enlargement may represent enlarged pulmonary artery and pulmonary hypertension. Other etiologies including adenopathy not excluded.
[2016-12-29] MEDS: OSELTAMIVIR 60 MG/10 ML ORAL SYRINGE PO SCH ×2 (09:01→20:49)
[2016-12-29] MEDS: CITALOPRAM HYDROBROMIDE 10 MG TAB PO SCH (09:03)
[2016-12-29] MEDS: TAMSULOSIN 0.4 MG CAP.ER.24H PO SCH (09:03)
[2016-12-29] MEDS: FERROUS SULFATE 325 MG TAB PO SCH (09:03)
[2016-12-29] MEDS: LINAGLIPTIN 5 MG TABLET PO SCH (09:03)
[2016-12-29] MEDS: ISOSORBIDE MONONITRATE ER 30 MG TAB.ER.24H PO SCH (09:03)
[2016-12-29] MEDS: FUROSEMIDE 10 MG/ML 4 ML VIAL IV SCH ×5 (09:04→23:28)
[2016-12-29] MEDS: DIGOXIN 125 MCG TAB PO SCH (09:04)
[2016-12-29] MEDS: METOPROLOL TARTRATE 25 MG TAB PO SCH ×2 (09:12→20:49)
[2016-12-29] MEDS: INSULIN GLARGINE 100 UNIT/ML 10 ML VIAL SQ SCH (09:13)
[2016-12-29 11:51] LABS: Glucose,Whole Blood 86 mg/dL (75-99)
[2016-12-29 11:56] VITALS: BMI 27.8
--- NOTE | 2016-12-29 15:29 | P.PN ---
Subjective Principal diagnosis: Influenza B This is a 86-year-old gentleman with history of ischemic heart disease, cardiomyopathy, AICD implantation was in [place] and apparently was admitted to the hospital with difficulty urinating and with collapsed external related to clots. Apparently he had Avendaño catheter insertion and irrigation. At the time he was taken off the Lasix. Since coming home, Patient has gained several pounds. He is having fever and chills and also some shortness of breath. Patient was brought to the emergency room. A chest x-ray showed evidence of congestion. He also had some pedal edema. He was also tested positive for Influenza B. A shunt has been receiving IV Lasix. Patient has been receiving IV Lasix. Unsure exactly of the urine output. Overall patient's breathing is much improved, lungs are with fine rales to the bases. Objective - Vital Signs Vital signs: Vital Signs Temp 97.5 F L 12/29/16 12:00 Pulse 62 12/29/16 12:00 Resp 16 12/29/16 12:00 BP 139/53 12/29/16 12:00 Pulse Ox 97 12/29/16 12:00 Intake & Output 12/28/16 12/29/16 12/29/16 18:59 06:59 18:59 Intake Total 504 200 Balance 504 200 Weight 80.5 kg Intake: IV 150 NORMAL SALINE 0.9% 150 Intake, IV Titration 100 Amount Levofloxacin 500Mg-D5w 100 Pmx 500 mg In Dextrose/ Water 1 100ml.bag @ 100 mls/hr IVPB Q24H [facility] Rx#: [id number] Oral 354 100 Other: Voiding Method Toilet Toilet # Voids 1 1 1 - Exam PHYSICAL EXAMINATION: HEENT: Head is atraumatic, normocephalic. Pupils equal, round. Neck is supple. There is no elevated jugular venous pressure. HEART EXAMINATION: S1 and S2 systolic murmur is heard. CHEST EXAMINATION: Lungs clear with fine rales to bilateral bases. ABDOMEN: Soft, nontender. Bowel sounds are heard. No organomegaly noted. EXTREMITIES: 1+ peripheral pulses with no evidence of peripheral edema and no calf tenderness noted. NEUROLOGIC patient is awake, alert and oriented -3. . - Labs CBC & Chem 7: 12/27/16 17:52 12/29/16 06:16 Labs: Abnormal Lab Results - Last 24 Hours (Table) 12/28/16 12/28/16 12/29/16 Range/Units 17:21 20:02 06:16 Chloride 112 H (98-107) mmol/L Carbon Dioxide 21 L (22-30) mmol/L BUN 66 H (9-20) mg/dL Creatinine 1.55 H (0.66-1.25) mg/dL POC Glucose (mg/dL) 112 H 145 H (75-99) mg/dL 12/29/16 Range/Units 06:18 Chloride (98-107) mmol/L Carbon Dioxide (22-30) mmol/L BUN (9-20) mg/dL Creatinine (0.66-1.25) mg/dL POC Glucose (mg/dL) 101 H (75-99) mg/dL Assessment and Plan (1) Systolic CHF, acute on chronic Status: Acute (2) Ischemic cardiomyopathy Status: Acute (3) Hx of CABG Status: Acute (4) AICD (automatic cardioverter/defibrillator) present Status: Acute (5) HTN (hypertension) Status: Acute (6) Hyperlipemia Status: Acute (7) Influenza B Status: Acute (8) Renal insufficiency syndrome Status: Acute (9) Scrotal edema Status: Acute (10) UTI (urinary tract infection) Status: Acute Plan: From cardiology's perspective, we will recommend to continue current dose of IV Lasix. Check lytes BUN and creatinine in the morning. DNP note has been reviewed, I agree with a documented findings and plan of care. Patient was seen and examined.
[2016-12-29 16:51] LABS: Glucose,Whole Blood 107 mg/dL (75-99)
[2016-12-29] MEDS ORDERED: LEVOFLOXACIN 250 MG TAB PO SCH (19:00)
[2016-12-29 20:35] LABS: Glucose,Whole Blood 135 mg/dL (75-99)
[2016-12-29] MEDS: ATORVASTATIN 10 MG TAB PO SCH (20:48)
[2016-12-29] MEDS: LOSARTAN 25 MG TAB PO SCH (20:48)
[2016-12-29] MEDS ORDERED: DONEPEZIL 5 MG TAB PO SCH (21:00)
[2016-12-30] MEDS: ACETAMINOPHEN TAB 325 MG TAB PO PRN (03:42)
[2016-12-30 06:41] LABS: Glucose,Whole Blood 105 mg/dL (75-99)
[2016-12-30] MEDS: INSULIN LISPRO (humaLOG) 300 UNIT/3 ML VIAL SQ SCH (06:43)
[2016-12-30] MEDS: PANTOPRAZOLE 40 MG TABLET PO SCH (06:48)
[2016-12-30] MEDS: CITALOPRAM HYDROBROMIDE 10 MG TAB PO SCH (08:17)
[2016-12-30] MEDS: DIGOXIN 125 MCG TAB PO SCH (08:17)
[2016-12-30] MEDS: FERROUS SULFATE 325 MG TAB PO SCH (08:18)
[2016-12-30] MEDS: LINAGLIPTIN 5 MG TABLET PO SCH (08:18)
[2016-12-30] MEDS: ISOSORBIDE MONONITRATE ER 30 MG TAB.ER.24H PO SCH (08:18)
[2016-12-30] MEDS: METOPROLOL TARTRATE 25 MG TAB PO SCH (08:19)
[2016-12-30] MEDS: OSELTAMIVIR 60 MG/10 ML ORAL SYRINGE PO SCH (08:19)
[2016-12-30] MEDS: TAMSULOSIN 0.4 MG CAP.ER.24H PO SCH (08:19)
[2016-12-30] MEDS: FUROSEMIDE 10 MG/ML 4 ML VIAL IV SCH ×2 (08:20→08:23)
[2016-12-30] MEDS: INSULIN GLARGINE 100 UNIT/ML 10 ML VIAL SQ SCH (08:23)
--- NOTE | 2016-12-30 09:09 | PN ---
CHIEF COMPLAINT: Re-evaluation. HISTORY OF PRESENT ILLNESS: This is an 86-year-old gentleman who was admitted to the hospital with shortness of breath. The patient also is noted to have evidence suggestive of influenza B. The patient is feeling much better today. He feels he is back to his usual baseline status. His breathing is improved. He has been treated with IV Lasix. REVIEW OF SYSTEMS: NEURO: Denies any headaches, dizziness. PSYCH: Anxiety. CARDIAC: Denies chest pain, angina, palpitation. RESPIRATORY: Denies shortness of breath, cough. GI: No nausea, vomiting, abdominal pain, diarrhea. : Denies symptoms of dysuria, hematuria. EXTREMITIES: Denies pain. Does still have some edema. CONSTITUTIONAL: No fever or chills. PHYSICAL EXAMINATION: Pleasant gentleman in no distress. Vital signs reveal temperature 97.2, pulse 67, respirations 16, blood pressure 136/47, pulse ox 96% on room air. HEENT: Normocephalic. NECK: No JVD. Chest is clear to auscultation and percussion except for dullness to percussion right base. CARDIAC: Distant heart sounds. S1, S2 with no gallops. Systolic murmur 2/6 left sternal border and apex. Rhythm is irregular. ABDOMEN: Soft, no palpable masses. Bowel sounds normal. Extremities reveal trace edema. NEUROLOGIC: Awake, alert, oriented with well coordinated movements. LABORATORY ASSESSMENT: Blood culture negative for any growth. Electrolytes within normal. Sodium 144, potassium 3.8, chloride 112, CO2 content 21, BUN 66 and 1.55. GFR of 43. ASSESSMENT: 1. Acute on chronic congestive cardiac failure secondary to diastolic dysfunction. 2. Coronary artery disease. 3. Previous history of coronary artery bypass graft. 4. Diabetes mellitus controlled. 5. Influenza. 6. Chronic kidney disease stage III. PLAN: The patient is stable. Continue present medical regimen. Patient's condition discussed with the patient. Prognosis remains guarded. We will continue present IV diuresis. Will reduce the Lasix to 40 mg b.i.d. Potential discharge home tomorrow. Patient's condition discussed with the patient.
[2016-12-30 11:18] VITALS: BP 120/62; PULSE 60; RESP 16; TEMP 98.2
--- NOTE | 2017-01-04 13:54 | P.DS ---
Providers Date of admission: 12/27/16 18:25 Attending physician: Boni Sethi Primary care physician: Boni Sethi [facility] Course: This 86-year-old gentleman was admitted to the hospital after evaluation in the emergency room. This was his second visit in 3 days. Patient recently had been hospitalized in [place]. He was admitted there with hematuria. The patient was subsequently discharged. He was told not to take his Lasix unless he gained some weight. The patient was given a weight balanced Lasix use protocol. The patient has gained significant weight without much help. In the ER he was given a dose of Lasix 3 days ago. However he has not continued to take Lasix at home. Patient has known history of coronary artery disease and a previous CABG. The patient has history of chronic atrial fibrillation. Not on anticoagulation due to episodes of bleeding. The patient does have a history of chronic kidney disease. 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 The patient has history of diabetes mellitus with adequately controlled blood sugars. He has had a previous history of prostate surgery and urethral stricture surgery. Patient is followed by the plasma specialist as well. Following hospitalization patient was diuresed with resolution of his symptoms of shortness of breath. Patient with abnormal admission was also noted to have a influenza B positive however hardly any symptoms. The patient was treated with Tamiflu. It was discontinued at the time of discharge as patient hardly had any symptoms. Patient is feeling fairly well he will follow up on the outpatient. Final diagnoses should include 1. Acute congestive cardiac failure secondary to both systolic and diastolic dysfunction 2. Dilated ischemic cardiomyopathy 3. Chronic atrial fibrillation/pacemaker status. 4. Diabetes mellitus. 5. Chronic kidney disease stage III secondary to atherosclerosis. 6. Hypertension 7. Stable coronary artery disease 8. Influenza B 9. Chronic anemia Patient Condition at Discharge: Fair Plan - Discharge Summary New Discharge Prescriptions: Furosemide [Lasix] 40 mg PO AC-BRKFST #30 tablet Spironolactone [Aldactone] 12.5 mg PO DAILY #30 tablet Discharge Medication List Pantoprazole Sodium [Protonix] 40 mg PO DAILY 01/31/14 [History] Citalopram Hydrobromide [CeleXA] 10 mg PO DAILY #30 tab 04/07/14 [Rx] Atorvastatin [Lipitor] 10 mg PO HS 07/18/14 [History] Metoprolol Tartrate [Lopressor] 25 mg PO BID 07/18/14 [History] Digoxin [Lanoxin] 125 mcg PO DAILY #0 07/24/14 [Rx] Ascorbic Acid [Vitamin C] 500 mg PO HS 02/05/16 [History] Donepezil [Aricept] 5 mg PO HS 02/05/16 [History] Ferrous Sulfate [Iron (65 MG Elemental)] 325 mg PO DAILY 02/05/16 [History] Insulin Glargine,Hum.rec.anlog [Toujeo Solostar] 10 units SQ DAILY 02/05/16 [ History] Linagliptin [Tradjenta] 5 mg PO DAILY 02/05/16 [History] Losartan [Cozaar] 25 mg PO HS 06/21/16 [History] Nitroglycerin Sl Tabs [Nitrostat] 0.4 mg SUBLINGUAL Q5M PRN 06/21/16 [History] Isosorbide Mononitrate ER [Imdur] 30 mg PO DAILY 12/25/16 [History] Tamsulosin HCl [Flomax] 0.4 mg PO QAM 12/27/16 [History] Citalopram Hydrobromide [CeleXA] 10 mg PO DAILY tab 12/30/16 [Rx] Donepezil [Aricept] 5 mg PO HS tab 12/30/16 [Rx] Furosemide [Lasix] 40 mg PO AC-BRKFST #30 tablet 12/30/16 [Rx] Spironolactone [Aldactone] 12.5 mg PO DAILY #30 tablet 12/30/16 [Rx] Follow up Appointment(s)/Referral(s): Boni Sethi MD [Primary Care Provider] - 1-2 days Patient Instructions/Handouts: Heart Failure (DC) Discharge Disposition: HOME SELF-CARE
== END 2016-12-30 09:15 | disposition home or self-care (01) | DRG 291 ==
LOC: EC 14:54 → 6SEL 18:25
PROVIDERS: ADMIT Internal Medicine; ATTEND Internal Medicine
DX: I13.0 Hypertensive heart and chronic kidney disease with heart failure and stage 1 through stage 4 chronic kidney disease, or unspecified chronic kidney disease (principal); I50.33 Acute on chronic diastolic (congestive) heart failure; E11.22 Type 2 diabetes mellitus with diabetic chronic kidney disease; D62 Acute posthemorrhagic anemia; F03.90 Unspecified dementia, unspecified severity, without behavioral disturbance, psychotic disturbance, mood disturbance, and anxiety; I25.5 Ischemic cardiomyopathy; R31.9 Hematuria, unspecified; I25.10 Atherosclerotic heart disease of native coronary artery without angina pectoris; N39.0 Urinary tract infection, site not specified; N18.3 Chronic kidney disease, stage 3 (moderate); J10.1 Influenza due to other identified influenza virus with other respiratory manifestations; N40.0 Benign prostatic hyperplasia without lower urinary tract symptoms; E78.5 Hyperlipidemia, unspecified; M19.91 Primary osteoarthritis, unspecified site; F41.9 Anxiety disorder, unspecified; N50.89 Other specified disorders of the male genital organs; Z95.1 Presence of aortocoronary bypass graft; Z95.810 Presence of automatic (implantable) cardiac defibrillator; Z90.49 Acquired absence of other specified parts of digestive tract; Z87.891 Personal history of nicotine dependence; Z79.84 Long term (current) use of oral hypoglycemic drugs; Z79.4 Long term (current) use of insulin; Z79.899 Other long term (current) drug therapy; Z82.49 Family history of ischemic heart disease and other diseases of the circulatory system
CPT/HCPCS: 36415; 71020; 80048; 80053; 80162; 81001; 81003; 82550; 82553; 83036; 83880; 84484; 85025; 85610; 85730; 87040; 87502; 93005; 96374; 99284; 99285

== ENCOUNTER 2017-01-11 03:04 | Emergency (ER) | payer MEDICARE, BC ==
[2017-01-11 03:14] VITALS: RESP 18
[2017-01-11 03:59] LABS: Anisocytosis Slight; Basophils # (A) 0.1 k/uL (0-0.2); Basophils % (A) 1 %; CH 31.7; CHCM 32.2; Eosinophils # (A) 0.1 k/uL (0-0.7); Eosinophils % (A) 2 %; HCT 32.3 % (39.0-53.0); HDW 3.32; HGB 10.1 gm/dL (13.0-17.5); Hypochromasia Slight; Luc % (Auto) 2; Lymphocytes # (A) 0.6 k/uL (1.0-4.8); Lymphocytes % (A) 10 %; MCHC 31.1 g/dL (31.0-37.0); MCV 99.5 fL (80.0-100.0); Macrocytosis Slight; Mean Platelet Volume 8.4; Monocytes # (A) 0.4 k/uL (0-1.0); Monocytes % (A) 7 %; Neutrophils # (A) 4.7 k/uL (1.3-7.7); Neutrophils % (A) 78 %; RBC 3.25 m/uL (4.30-5.90); RDW 17.8 % (11.5-15.5); WBC (Perox) 6.08
[2017-01-11 04:05] LABS: Appearance,Urine Clear (Clear); Bacteria,Urine Rare /hpf; Bilirubin,Urine Negative (Negative); Glucose,Urine (UA) Negative (Negative); Ketones,Urine Negative (Negative); Leukocyte Esterase,Urine Negative (Negative); Mucus,Urine Rare /hpf; Nitrite,Urine Negative (Negative); Particle Count 1180; Protein,Urine Trace (Negative); RBC,Urine 7 /hpf (0-5); Specific Gravity,Urine 1.008 (1.001-1.035); Squamous Epithelial Cell,Urine <1 /hpf (0-4); UA Billing (MACRO vs. MICRO) MICRO; Urobilinogen,Urine <2.0 mg/dL (<2.0); WBC,Urine 2 /hpf (0-5)
--- NOTE | 2017-01-11 04:10 | XR ---
EXAM: XR Chest, 2 Views CLINICAL HISTORY: Prior on synapse, dizziness and nausea, history of CHF TECHNIQUE: Frontal and lateral views of the chest. COMPARISON: 12/29/16 FINDINGS: Lungs: Mild airspace opacities throughout both lungs, similar. Pleural space: Unremarkable. No pneumothorax. Heart: Moderate cardiomegaly. Mediastinum: Unremarkable. Bones/joints: Osteopenia. Mild degenerative changes. Vasculature: Aorta is calcified. Other findings: Left pacer is again noted. IMPRESSION: Persistent mild CHF
[2017-01-11 04:11] LABS: INR 1.3 (<1.1); Partial Thromboplastin Time 25.5 sec (22.0-30.0); Prothrombin Time 12.5 sec (9.0-12.0)
[2017-01-11 04:13] LABS: ALT 39 U/L (21-72); AST 23 U/L (17-59); Alkaline Phosphatase 76 U/L (38-126); Anion Gap 12 mmol/L; Blood Urea Nitrogen 45 mg/dL (9-20); Calcium 9.2 mg/dL (8.4-10.2); Carbon Dioxide 18 mmol/L (22-30); Chloride 114 mmol/L (98-107); Glucose 117 mg/dL (74-99); Non-African American GFR(MDRD) 52 (>60 ml/min/1.73 sqM); Sodium 144 mmol/L (137-145); Total Protein 6.9 g/dL (6.3-8.2)
[2017-01-11] MEDS ORDERED: ONDANSETRON 4 MG/2 ML VIAL IVP STA (04:21)
[2017-01-11] MEDS ORDERED: MECLIZINE 12.5 MG TAB PO STA (04:43)
[2017-01-11] MEDS ORDERED: MORPHINE SULFATE 4 MG/ML SYRINGE IV STA (04:43)
--- NOTE | 2017-01-11 05:46 | CT ---
ADDENDUM - Added by Paul Catsillo M.D. on 01/11/2017 5:46 AM (-04:00) Sinuses: Mild to moderate sinus disease, worse compared to on the prior study. EXAM: CT Head Without Intravenous Contrast CLINICAL HISTORY: Prev. on synapse. AMS. TECHNIQUE: Axial computed tomography images of the head/brain without intravenous contrast. CTDI is 11.8 mGy and DLP is 579.9 mGy-cm This CT exam was performed using one or more of the following dose reduction techniques: automated exposure control, adjustment of the mA and/or kV according to patient size, and/or use of iterative reconstruction technique. Coronal and sagittal reconstructions are performed COMPARISON: 06/02/14 FINDINGS: Brain: Mild age-related generalized brain volume loss and chronic small vessel ischemic changes. No hemorrhage. Ventricles: Unremarkable. No ventriculomegaly. Bones/joints: Unremarkable. No acute fracture. Soft tissues: Unremarkable. Sinuses: Mild to moderate sinus disease, as worse compression.. Mastoid air cells: Unremarkable as visualized. No mastoid effusion. Orbits: Bilateral cataracts. IMPRESSION: No acute intracranial findings.
--- NOTE | 2017-01-11 05:59 | CT ---
EXAM: CT Abdomen and Pelvis Without Intravenous Contrast CLINICAL HISTORY: Reason: Back Pain Cholecystectomy, Appendectomy, CABG, Prostate Sx. TECHNIQUE: Axial computed tomography images of the abdomen and pelvis without intravenous contrast. CTDI is 11.8 mGy and DLP is 579.9 mGy-cm This CT exam was performed using one or more of the following dose reduction techniques: automated exposure control, adjustment of the mA and/or kV according to patient size, and/or use of iterative reconstruction technique. Coronal and sagittal reconstructions are performed COMPARISON: 06/21/16 FINDINGS: Lower thorax: Moderate amount of right pleural effusion slightly increased. Persistent small left pleural effusion. Moderate cardiomegaly. Mild diffuse interstitial opacities in both lungs. Moderate cardiomegaly with pacer leads in place. Moderate amount of aortic annular calcifications. ABDOMEN: Liver: 9 mm hypodensity in anterior left lobe of the liver, unchanged, likely a cyst or hemangioma, too small to characterize Gallbladder and bile ducts: Mild intra-and intrahepatic biliary duct dilatation, likely related patient's age and cholecystectomy. Pancreas: 1.4 cm hypodense lesion in the tail of the pancreas is unchanged. No ductal dilation. Spleen: Mild splenomegaly is again noted. Adrenals: Unremarkable. No mass. Kidneys and ureters: Bilateral renal cysts, largest is in the right kidney, hyperdense, likely hemorrhagic or proteinaceous. These are not substantially changed. Stomach and bowel: Mild colonic diverticulosis. No obstruction. No mucosal thickening. Appendix: Appendectomy PELVIS: Bladder: Unremarkable. No stones. Reproductive: [place] of penile implant in the anterior pelvis is again noted. ABDOMEN and PELVIS: Intraperitoneal space: Unremarkable. No free air. No significant fluid collection. Bones/joints: Osteopenia. Moderate degenerative changes. Sternal wires. Soft tissues: Bilateral gynecomastia. Vasculature: Large amount of atherosclerotic calcifications. Lymph nodes: Unremarkable. No enlarged lymph nodes. Other findings: Small fat-containing ventral hernia at the level of L2. IMPRESSION: 1. Bilateral pleural effusions, more on the right, increased right compared to prior study. 2. Mild CHF.
--- NOTE | 2017-01-11 06:31 | ED ---
Dizziness HPI - General Source: patient Mode of arrival: wheelchair Limitations: language barrier - History of Present Illness MD Complaint: dizziness Onset/Timin -: days(s) Timing: sudden onset Description: "room spinning" History of Same: Yes History of Trauma: No Severity: moderate Improves With: nothing Worsens With: nothing <Cb Mays - Last Filed: 01/11/17 07:46> <Luca Aldridge - Last Filed: 01/11/17 10:57> - General Chief Complaint: Dizziness Stated Complaint: Dizziness/Abdominal Pain Time Seen by Provider: 01/11/17 03:47 - History of Present Illness Initial Comments: 's patient is an 86-year-old man who presents to be evaluated for acute problems. He states that he had a fall nearly one week ago and then a couple of days after that started having mid back pain. He indicates the area across his back near the thoracolumbar junction. Patient states pain is moderate. He is not able to describe characterize it well. He does not identify any worsening or relieving factors or any symptoms that are associated with this pain. In addition the patient has been having what he is describing as a dizzy feeling. He does state that it feels like things are spinning. He is otherwise not able to identify any worsening or relieving factors. The patient' s daughter is at bedside and she states that he has been sleeping upright for the past couple of nights. History is limited, as the patient sometimes does not appear to fully comprehend the question. Even with the daughter translating the patient still does not seem to fully be able to characterize his symptoms. (Cb Mays) - Related Data Home Medications Medication Instructions Recorded Confirmed Pantoprazole Sodium [Protonix] 40 mg PO DAILY 01/31/14 01/11/17 Atorvastatin [Lipitor] 10 mg PO HS 07/18/14 01/11/17 Metoprolol Tartrate [Lopressor] 25 mg PO BID 07/18/14 01/11/17 Ascorbic Acid [Vitamin C] 500 mg PO HS 02/05/16 01/11/17 Ferrous Sulfate [Iron (65 MG 325 mg PO DAILY 02/05/16 01/11/17 Elemental)] Insulin Glargine,Hum.rec.anlog 10 units SQ DAILY 02/05/16 01/11/17 [Toujeo Solostar] Linagliptin [Tradjenta] 5 mg PO DAILY 02/05/16 01/11/17 Losartan [Cozaar] 25 mg PO HS 06/21/16 01/11/17 Nitroglycerin Sl Tabs [Nitrostat] 0.4 mg SUBLINGUAL Q5M PRN 06/21/16 01/11/17 Isosorbide Mononitrate ER [Imdur] 30 mg PO DAILY 12/25/16 01/11/17 Tamsulosin HCl [Flomax] 0.4 mg PO QAM 12/27/16 01/11/17 Aspirin [Adult Low Dose Aspirin EC] 81 mg PO DAILY 01/11/17 01/11/17 Previous Rx's Medication Instructions Recorded Citalopram Hydrobromide [CeleXA] 10 mg PO DAILY #30 tab 04/07/14 Digoxin [Lanoxin] 125 mcg PO DAILY #0 07/24/14 Citalopram Hydrobromide [CeleXA] 10 mg PO DAILY tab 12/30/16 Donepezil [Aricept] 5 mg PO HS tab 12/30/16 Furosemide [Lasix] 40 mg PO AC-BRKFST #30 tablet 12/30/16 Spironolactone [Aldactone] 12.5 mg PO DAILY #30 tablet 12/30/16 Allergies Allergy/AdvReac Type Severity Reaction Status Date / Time No Known Allergies Allergy Verified 01/11/17 10:15 Review of Systems ROS Other: All systems not noted in ROS Statement are negative. Limitations: ROS unobtainable due to patients medical condition Constitutional: Reports: weakness Respiratory: Denies: cough, dyspnea Cardiovascular: Denies: chest pain, palpitations, syncope Gastrointestinal: Reports: diarrhea. Denies: abdominal pain, vomiting Genitourinary: Denies: dysuria Musculoskeletal: Reports: as per HPI, back pain Skin: Denies: rash Neurological: Reports: vertigo. Denies: headache <Cb Mays - Last Filed: 01/11/17 07:46> ROS Other: All systems not noted in ROS Statement are negative. <Luca Aldridge - Last Filed: 01/11/17 10:57> ROS Statement: Those systems with pertinent positive or pertinent negative responses have been documented in the HPI. Past Medical History Past Medical History: Coronary Artery Disease (CAD), Chest Pain / Angina, Heart Failure, Diabetes Mellitus, GI Bleed, Hyperlipidemia, Hypertension, Memory Impairment, Osteoarthritis (OA), Prostate Disorder, Renal Disease, Skin Disorder Additional Past Medical History / Comment(s): ANEMIA, IRON DEFICIENCY. RECENT SL COUGH. Memory loss has been progressivley getting worse. HAS PRE-CA LESIONS FACE. cysts on kidney, incont of urine History of Any Multi-Drug Resistant Organisms: None Reported Past Surgical History: AICD, Appendectomy, Cholecystectomy, Coronary Bypass/CABG , Heart Catheterization With Stent, Prostate Surgery, Tonsillectomy Additional Past Surgical History / Comment(s): AICD, ST CECE. CABG 1994, 1982. RESECTIO PSEUDOANEURYSM RT FEM ARTERY. TURP. pt had battery to aicd replaced this may 2014, RT EYE SX(HAD FLUID BEHIND EYE) Past Anesthesia/Blood Transfusion Reactions: No Reported Reaction Additional Past Anesthesia/Blood Transfusion Reaction / Comment(s): LAST TRANSFUSION 12/2013 Date of Last Stent Placement:: 2008 Type of Cardiac Device: Permanent Pacemaker, AICD Device Placement Date:: 2008 Past Psychological History: Anxiety Additional Psychological History / Comment(s): HX OF HALLUCINATIONS, 01/2014, PER DR SETHI Smoking Status: Former smoker Past Alcohol Use History: None Reported Additional Past Alcohol Use History / Comment(s): STARTED SMOKING AT AGE 19 25 CIG/PER DAY, QUIT 1971 THEN STRATED FOR FEW MONTHS THEN QUIT. Past Drug Use History: None Reported - Past Family History Mother Family Medical History: Diabetes Mellitus Father Additional Family Medical History / Comment(s): emphysema <Cb Mays - Last Filed: 01/11/17 07:46> General Exam Limitations: no limitations General appearance: alert, in no apparent distress, obese Head exam: Present: atraumatic, normocephalic Eye exam: Present: normal appearance. Absent: scleral icterus, conjunctival injection Neck exam: Present: normal inspection, full ROM Respiratory exam: Present: rales (Bilateral bases). Absent: respiratory distress, wheezes, rhonchi, stridor Cardiovascular Exam: Present: regular rate, irregular rhythm, systolic murmur ( Grade 3/6 systolic ejection murmur with a harsh character, consistent with aortic stenosis.). Absent: diastolic murmur, rubs, gallop <Cb Mays - Last Filed: 01/11/17 07:46> EKG Findings - EKG Comments: EKG Findings:: The EKG shows what appears to be an underlying ventricular paced rhythm there are what appear to be multiple PVCs or reentrant beats. The rate is proximal to 70 bpm. - EKG Results: EKG: interpreted by ERMEstela <Cb Mays - Last Filed: 01/11/17 07:46> Medical Decision Making - Lab Data Result diagrams: 01/11/17 03:30 01/11/17 03:30 <Cb Mays - Last Filed: 01/11/17 07:46> - Lab Data Result diagrams: 01/11/17 03:30 01/11/17 03:30 <Luca Aldridge - Last Filed: 01/11/17 10:57> - Medical Decision Making After all testing was done I went into reevaluate the patient patient had no symptoms whatsoever. Patient was able to ambulate around the emergency room without any dizziness. Patient states she has an appointment tomorrow with Dr. Navdeep jaffe to go home. (Luca Aldridge) - Lab Data Lab Results 01/11/17 01/11/17 01/11/17 Range/Units 03:30 03:30 03:30 WBC 6.0 (3.8-10.6) k/uL RBC 3.25 L (4.30-5.90) m/uL Hgb 10.1 L (13.0-17.5) gm/dL Hct 32.3 L (39.0-53.0) % MCV 99.5 (80.0-100.0) fL MCH 31.0 (25.0-35.0) pg MCHC 31.1 (31.0-37.0) g/dL RDW 17.8 H (11.5-15.5) % Plt Count 137 L (150-450) k/uL Neutrophils % 78 % Lymphocytes % 10 % Monocytes % 7 % Eosinophils % 2 % Basophils % 1 % Neutrophils # 4.7 (1.3-7.7) k/uL Lymphocytes # 0.6 L (1.0-4.8) k/uL Monocytes # 0.4 (0-1.0) k/uL Eosinophils # 0.1 (0-0.7) k/uL Basophils # 0.1 (0-0.2) k/uL Hypochromasia Slight Anisocytosis Slight Macrocytosis Slight PT (9.0-12.0) sec INR (<1.1) APTT (22.0-30.0) sec D-Dimer (<0.60) mg/L FEU Sodium 144 (137-145) mmol/L Potassium 4.0 (3.5-5.1) mmol/L Chloride 114 H (98-107) mmol/L Carbon Dioxide 18 L (22-30) mmol/L Anion Gap 12 mmol/L BUN 45 H (9-20) mg/dL Creatinine 1.30 H (0.66-1.25) mg/dL Est GFR (MDRD) Af Amer >60 (>60 ml/min/1.73 sqM) Est GFR (MDRD) Non-Af 52 (>60 ml/min/1.73 sqM) Glucose 117 H (74-99) mg/dL POC Glucose (mg/dL) (75-99) mg/dL POC Glu Truck Cleaner ID Plasma Lactic Acid [place] (0.7-2.0) mmol/L Calcium 9.2 (8.4-10.2) mg/dL Magnesium (1.6-2.3) mg/dL Total Bilirubin 3.0 H (0.2-1.3) mg/dL AST 23 (17-59) U/L ALT 39 (21-72) U/L Alkaline Phosphatase 76 (38-126) U/L Total Creatine Kinase 55 (55-170) U/L CK-MB (CK-2) 2.0 (0.0-2.4) ng/mL CK-MB (CK-2) Rel Index 3.6 Troponin I (0.000-0.034) ng/mL NT-Pro-B Natriuret Pep pg/mL Total Protein 6.9 (6.3-8.2) g/dL Albumin 4.0 (3.5-5.0) g/dL Urine Color Urine Appearance (Clear) Urine pH (5.0-8.0) Ur Specific Novelty (1.001-1.035) Urine Protein (Negative) Urine Glucose (UA) (Negative) Urine Ketones (Negative) Urine Blood (Negative) Urine Nitrite (Negative) Urine Bilirubin (Negative) Urine Urobilinogen (<2.0) mg/dL Ur Leukocyte Esterase (Negative) Urine RBC (0-5) /hpf Urine WBC (0-5) /hpf Urine WBC Clumps (None) /hpf Ur Squamous Epith Cells (0-4) /hpf Urine Bacteria (None) /hpf Hyaline Casts (0-2) /lpf Urine Mucus (None) /hpf 01/11/17 01/11/17 01/11/17 Range/Units 03:30 03:30 03:30 WBC (3.8-10.6) k/uL RBC (4.30-5.90) m/uL Hgb (13.0-17.5) gm/dL Hct (39.0-53.0) % MCV (80.0-100.0) fL MCH (25.0-35.0) pg MCHC (31.0-37.0) g/dL RDW (11.5-15.5) % Plt Count (150-450) k/uL Neutrophils % % Lymphocytes % % Monocytes % % Eosinophils % % Basophils % % Neutrophils # (1.3-7.7) k/uL Lymphocytes # (1.0-4.8) k/uL Monocytes # (0-1.0) k/uL Eosinophils # (0-0.7) k/uL Basophils # (0-0.2) k/uL Hypochromasia Anisocytosis Macrocytosis PT 12.5 H (9.0-12.0) sec INR 1.3 (<1.1) APTT 25.5 (22.0-30.0) sec D-Dimer 1.24 H (<0.60) mg/L FEU Sodium (137-145) mmol/L Potassium (3.5-5.1) mmol/L Chloride (98-107) mmol/L Carbon Dioxide (22-30) mmol/L Anion Gap mmol/L BUN (9-20) mg/dL Creatinine (0.66-1.25) mg/dL Est GFR (MDRD) Af Amer (>60 ml/min/1.73 sqM) Est GFR (MDRD) Non-Af (>60 ml/min/1.73 sqM) Glucose (74-99) mg/dL POC Glucose (mg/dL) (75-99) mg/dL POC Glu Truck Cleaner ID Plasma Lactic Acid Antwon (0.7-2.0) mmol/L Calcium (8.4-10.2) mg/dL Magnesium (1.6-2.3) mg/dL Total Bilirubin (0.2-1.3) mg/dL AST (17-59) U/L ALT (21-72) U/L Alkaline Phosphatase (38-126) U/L Total Creatine Kinase (55-170) U/L CK-MB (CK-2) (0.0-2.4) ng/mL CK-MB (CK-2) Rel Index Troponin I (0.000-0.034) ng/mL NT-Pro-B Natriuret Pep pg/mL Total Protein (6.3-8.2) g/dL Albumin (3.5-5.0) g/dL Urine Color Light Yellow Urine Appearance Clear (Clear) Urine pH 5.0 (5.0-8.0) Ur Specific Novelty 1.008 (1.001-1.035) Urine Protein Trace H (Negative) Urine Glucose (UA) Negative (Negative) Urine Ketones Negative (Negative) Urine Blood Small H (Negative) Urine Nitrite Negative (Negative) Urine Bilirubin Negative (Negative) Urine Urobilinogen <2.0 (<2.0) mg/dL Ur Leukocyte Esterase Negative (Negative) Urine RBC 7 H (0-5) /hpf Urine WBC 2 (0-5) /hpf Urine WBC Clumps Rare H (None) /hpf Ur Squamous Epith Cells <1 (0-4) /hpf Urine Bacteria Rare H (None) /hpf Hyaline Casts 10 H (0-2) /lpf Urine Mucus Rare H (None) /hpf 01/11/17 01/11/17 01/11/17 Range/Units 03:30 03:30 03:30 WBC (3.8-10.6) k/uL RBC (4.30-5.90) m/uL Hgb (13.0-17.5) gm/dL Hct (39.0-53.0) % MCV (80.0-100.0) fL MCH (25.0-35.0) pg MCHC (31.0-37.0) g/dL RDW (11.5-15.5) % Plt Count (150-450) k/uL Neutrophils % % Lymphocytes % % Monocytes % % Eosinophils % % Basophils % % Neutrophils # (1.3-7.7) k/uL Lymphocytes # (1.0-4.8) k/uL Monocytes # (0-1.0) k/uL Eosinophils # (0-0.7) k/uL Basophils # (0-0.2) k/uL Hypochromasia Anisocytosis Macrocytosis PT (9.0-12.0) sec INR (<1.1) APTT (22.0-30.0) sec D-Dimer (<0.60) mg/L FEU Sodium (137-145) mmol/L Potassium (3.5-5.1) mmol/L Chloride (98-107) mmol/L Carbon Dioxide (22-30) mmol/L Anion Gap mmol/L BUN (9-20) mg/dL Creatinine (0.66-1.25) mg/dL Est GFR (MDRD) Af Amer (>60 ml/min/1.73 sqM) Est GFR (MDRD) Non-Af (>60 ml/min/1.73 sqM) Glucose (74-99) mg/dL POC Glucose (mg/dL) (75-99) mg/dL POC Glu Truck Cleaner ID Plasma Lactic Acid [place] 0.8 (0.7-2.0) mmol/L Calcium (8.4-10.2) mg/dL Magnesium 2.2 (1.6-2.3) mg/dL Total Bilirubin (0.2-1.3) mg/dL AST (17-59) U/L ALT (21-72) U/L Alkaline Phosphatase (38-126) U/L Total Creatine Kinase (55-170) U/L CK-MB (CK-2) (0.0-2.4) ng/mL CK-MB (CK-2) Rel Index Troponin I 0.016 (0.000-0.034) ng/mL NT-Pro-B Natriuret Pep pg/mL Total Protein (6.3-8.2) g/dL Albumin (3.5-5.0) g/dL Urine Color Urine Appearance (Clear) Urine pH (5.0-8.0) Ur Specific Novelty (1.001-1.035) Urine Protein (Negative) Urine Glucose (UA) (Negative) Urine Ketones (Negative) Urine Blood (Negative) Urine Nitrite (Negative) Urine Bilirubin (Negative) Urine Urobilinogen (<2.0) mg/dL Ur Leukocyte Esterase (Negative) Urine RBC (0-5) /hpf Urine WBC (0-5) /hpf Urine WBC Clumps (None) /hpf Ur Squamous Epith Cells (0-4) /hpf Urine Bacteria (None) /hpf Hyaline Casts (0-2) /lpf Urine Mucus (None) /hpf 01/11/17 01/11/17 Range/Units 03:30 10:19 WBC (3.8-10.6) k/uL RBC (4.30-5.90) m/uL Hgb (13.0-17.5) gm/dL Hct (39.0-53.0) % MCV (80.0-100.0) fL MCH (25.0-35.0) pg MCHC (31.0-37.0) g/dL RDW (11.5-15.5) % Plt Count (150-450) k/uL Neutrophils % % Lymphocytes % % Monocytes % % Eosinophils % % Basophils % % Neutrophils # (1.3-7.7) k/uL Lymphocytes # (1.0-4.8) k/uL Monocytes # (0-1.0) k/uL Eosinophils # (0-0.7) k/uL Basophils # (0-0.2) k/uL Hypochromasia Anisocytosis Macrocytosis PT (9.0-12.0) sec INR (<1.1) APTT (22.0-30.0) sec D-Dimer (<0.60) mg/L FEU Sodium (137-145) mmol/L Potassium (3.5-5.1) mmol/L Chloride (98-107) mmol/L Carbon Dioxide (22-30) mmol/L Anion Gap mmol/L BUN (9-20) mg/dL Creatinine (0.66-1.25) mg/dL Est GFR (MDRD) Af Amer (>60 ml/min/1.73 sqM) Est GFR (MDRD) Non-Af (>60 ml/min/1.73 sqM) Glucose (74-99) mg/dL POC Glucose (mg/dL) 106 H (75-99) mg/dL POC Glu Truck Cleaner ID [place], [place] Plasma Lactic Acid Antwon (0.7-2.0) mmol/L Calcium (8.4-10.2) mg/dL Magnesium (1.6-2.3) mg/dL Total Bilirubin (0.2-1.3) mg/dL AST (17-59) U/L ALT (21-72) U/L Alkaline Phosphatase (38-126) U/L Total Creatine Kinase (55-170) U/L CK-MB (CK-2) (0.0-2.4) ng/mL CK-MB (CK-2) Rel Index Troponin I (0.000-0.034) ng/mL NT-Pro-B Natriuret Pep 5710 pg/mL Total Protein (6.3-8.2) g/dL Albumin (3.5-5.0) g/dL Urine Color Urine Appearance (Clear) Urine pH (5.0-8.0) Ur Specific Novelty (1.001-1.035) Urine Protein (Negative) Urine Glucose (UA) (Negative) Urine Ketones (Negative) Urine Blood (Negative) Urine Nitrite (Negative) Urine Bilirubin (Negative) Urine Urobilinogen (<2.0) mg/dL Ur Leukocyte Esterase (Negative) Urine RBC (0-5) /hpf Urine WBC (0-5) /hpf Urine WBC Clumps (None) /hpf Ur Squamous Epith Cells (0-4) /hpf Urine Bacteria (None) /hpf Hyaline Casts (0-2) /lpf Urine Mucus (None) /hpf Disposition <Cb Mays - Last Filed: 01/11/17 07:46> Time of Disposition: 10:57 <Luca Aldridge - Last Filed: 01/11/17 10:57> Clinical Impression: Dizziness, Pulmonary edema Disposition: HOME SELF-CARE Condition: Good Instructions: Pulmonary Edema (ED) Referrals: Boni Sethi MD [Primary Care Provider] - 1-2 days
[2017-01-11] MEDS ORDERED: TAMSULOSIN 0.4 MG CAP.ER.24H PO STA (10:09)
[2017-01-11] MEDS ORDERED: SPIRONOLACTONE 25 MG TAB PO STA (10:09)
[2017-01-11] MEDS ORDERED: METOPROLOL TARTRATE 25 MG TAB PO STA (10:10)
[2017-01-11] MEDS ORDERED: PANTOPRAZOLE 40 MG TABLET PO STA (10:10)
[2017-01-11] MEDS ORDERED: LINAGLIPTIN 5 MG TABLET PO STA (10:11)
[2017-01-11] MEDS ORDERED: ISOSORBIDE MONONITRATE ER 30 MG TAB.ER.24H PO STA (10:11)
[2017-01-11] MEDS ORDERED: CITALOPRAM HYDROBROMIDE 10 MG TAB PO STA (10:12)
[2017-01-11] MEDS ORDERED: ASPIRIN 81 MG CHEW PO STA (10:12)
[2017-01-11] MEDS ORDERED: FUROSEMIDE 40 MG TAB PO STA (10:12)
[2017-01-11] MEDS ORDERED: DIGOXIN 125 MCG TAB PO STA (10:12)
[2017-01-11] MEDS ORDERED: INSULIN GLARGINE 100 UNIT/ML 10 ML VIAL SQ STA (10:13)
--- NOTE | 2017-01-11 10:14 | NM ---
EXAMINATION TYPE: NM pul vent and perfuse DATE OF EXAM: 01/11/2017 9:41 AM COMPARISON: Chest radiograph dated 01/11/2017 depicting congestive heart failure. HISTORY: Shortness of breath TECHNIQUE: Utilizing inhalation of 71.5 mCi Tc 99m DTPA aerosol and intravenous injection of 5.4 mCi of Tc 99m MAA, ventilation and perfusion images are acquired post injection in multiple projections. FINDINGS: There is no evidence of mismatched defects. Matched nonsegmental defects are seen bilaterally. Cardio megaly is demonstrated. IMPRESSION: Low probability for pulmonary embolus. Matched bilateral ventilation perfusion defects which may rela te to hypoperfusion/hypoventilation from underlying congestive heart failure.
[2017-01-11 10:21] LABS: Glucose,Whole Blood 106 mg/dL (75-99)
[2017-01-11 11:17] VITALS: BP 142/93; PULSE 63; TEMP 96.8
== END 2017-01-11 11:17 | disposition home or self-care (01) ==
LOC: EC 03:04
DX: J81.1 Chronic pulmonary edema (principal); R42 Dizziness and giddiness; M54.9 Dorsalgia, unspecified; E78.5 Hyperlipidemia, unspecified; I11.0 Hypertensive heart disease with heart failure; D50.9 Iron deficiency anemia, unspecified; E11.9 Type 2 diabetes mellitus without complications; I25.10 Atherosclerotic heart disease of native coronary artery without angina pectoris; N42.9 Disorder of prostate, unspecified; M19.90 Unspecified osteoarthritis, unspecified site; Z87.891 Personal history of nicotine dependence; Z79.4 Long term (current) use of insulin; Z79.84 Long term (current) use of oral hypoglycemic drugs; Z79.82 Long term (current) use of aspirin; Z79.899 Other long term (current) drug therapy; Z87.19 Personal history of other diseases of the digestive system; Z86.79 Personal history of other diseases of the circulatory system; Z82.5 Family history of asthma and other chronic lower respiratory diseases
CPT/HCPCS: 96374 ×2; 96375 ×2; 99284 ×2; 36415; 93005; 85379; 83880; 80053; 82550; 82553; 83605; 83735; 84484; 85025; 85610; 85730; 81001; 71020; 70450; 74176; 78582; A9540; A9567; J2270; J2405

== ENCOUNTER 2017-03-18 21:26 | Emergency (ER) | payer MEDICARE, BC ==
[2017-03-18] MEDS ORDERED: SODIUM CHLORIDE 0.9% 1,000 ML IV STA (22:11)
--- NOTE | 2017-03-18 22:15 | ED ---
General Adult HPI - General Chief complaint: Abdominal Pain Stated complaint: Abd Pain Time Seen by Provider: 03/18/17 21:34 Source: patient, family, RN notes reviewed, old records reviewed Mode of arrival: wheelchair Limitations: no limitations, language barrier - History of Present Illness Initial comments: chief complaint and history of present illness this 89-year-old [place] man with his son was able to translate if an as needed. During the day today the patient had discomfort to his abdomen. Upon arrival to emergency room the pain had subsided significantly. Denies any nausea vomiting. He does have a small ventral hernia which is reducible. He has for the last year but been told he has an enlarged liver. Previous labs show a bilirubin of 3.0 with liver enzymes within normal limits. No history of cancer to date. - Related Data Home Medications Medication Instructions Recorded Confirmed Pantoprazole Sodium [Protonix] 40 mg PO DAILY 01/31/14 01/11/17 Atorvastatin [Lipitor] 10 mg PO HS 07/18/14 01/11/17 Metoprolol Tartrate [Lopressor] 25 mg PO BID 07/18/14 01/11/17 Ascorbic Acid [Vitamin C] 500 mg PO HS 02/05/16 01/11/17 Ferrous Sulfate [Iron (65 MG 325 mg PO DAILY 02/05/16 01/11/17 Elemental)] Insulin Glargine,Hum.rec.anlog 10 units SQ DAILY 02/05/16 01/11/17 [[place] Solostar] Linagliptin [Tradjenta] 5 mg PO DAILY 02/05/16 01/11/17 Losartan [Cozaar] 25 mg PO HS 06/21/16 01/11/17 Nitroglycerin Sl Tabs [Nitrostat] 0.4 mg SUBLINGUAL Q5M PRN 06/21/16 01/11/17 Isosorbide Mononitrate ER [Imdur] 30 mg PO DAILY 12/25/16 01/11/17 Tamsulosin HCl [Flomax] 0.4 mg PO QAM 12/27/16 01/11/17 Aspirin [Adult Low Dose Aspirin EC] 81 mg PO DAILY 01/11/17 01/11/17 Previous Rx's Medication Instructions Recorded Citalopram Hydrobromide [CeleXA] 10 mg PO DAILY #30 tab 08/01/14 Digoxin [Lanoxin] 125 mcg PO DAILY #0 07/24/14 Citalopram Hydrobromide [CeleXA] 10 mg PO DAILY tab 12/30/16 Donepezil [Aricept] 5 mg PO HS tab 12/30/16 Furosemide [Lasix] 40 mg PO AC-[id number] #30 tablet 12/30/16 Spironolactone [Aldactone] 12.5 mg PO DAILY #30 tablet 12/30/16 Allergies Allergy/AdvReac Type Severity Reaction Status Date / Time No Known Allergies Allergy Verified 03/18/17 22:19 Review of Systems ROS Statement: Those systems with pertinent positive or pertinent negative responses have been documented in the HPI. review of systems currently denying visual acuity changes no headache no stiff neck no chest pain or shortness of breath currently he reports his pain significantly decreased and only hurts when his liver edge is palpated.. Normal active bowel sounds. Soft ball sized reducible ventral hernia. No neuro deficits. Alert and oriented. Past medical problems significant for CHF, insulin-dependent diabetes mellitus, GI bleed, hyperlipidemia and hypertension. He has mild dementia. Also osteoarthritis and prostatic hypertrophy. Chronic mild renal insufficiency. The patient's also been treated for iron deficiency anemia. His surgeries include 2 coronary artery bypasses. AICD with defibrillator. Appendectomy, cholecystectomy heart catheterization with 2 stents placed. Prostate surgery prostatic hypertrophy for's on and tonsillectomy. Family history no cancers. Patient denies any ALLERGIES. Quit smoking 45 years ago denies alcohol use. ROS Other: All systems not noted in ROS Statement are negative. Past Medical History Past Medical History: Coronary Artery Disease (CAD), Chest Pain / Angina, Heart Failure, Diabetes Mellitus, GI Bleed, Hyperlipidemia, Hypertension, Memory Impairment, Osteoarthritis (OA), Prostate Disorder, Renal Disease, Skin Disorder Additional Past Medical History / Comment(s): ANEMIA, IRON DEFICIENCY. RECENT SL COUGH. Memory loss has been progressivley getting worse. HAS PRE-CA LESIONS FACE. cysts on kidney, incont of urine History of Any Multi-Drug Resistant Organisms: None Reported Past Surgical History: AICD, Appendectomy, Cholecystectomy, Coronary Bypass/CABG , Heart Catheterization With Stent, Prostate Surgery, Tonsillectomy Additional Past Surgical History / Comment(s): AICD, ST CECE. CABG 1994, 1982. RESECTIO PSEUDOANEURYSM RT FEM ARTERY. TURP. pt had battery to aicd replaced this may 2014, RT EYE SX(HAD FLUID BEHIND EYE) Past Anesthesia/Blood Transfusion Reactions: No Reported Reaction Additional Past Anesthesia/Blood Transfusion Reaction / Comment(s): LAST TRANSFUSION 12/2013 Date of Last Stent Placement:: 2008 Type of Cardiac Device: Permanent Pacemaker, AICD Device Placement Date:: 2008 Past Psychological History: Anxiety Smoking Status: Former smoker Past Alcohol Use History: None Reported Past Drug Use History: None Reported - Past Family History Mother Family Medical History: Diabetes Mellitus Father Additional Family Medical History / Comment(s): emphysema General Exam - General Exam Comments Initial Comments: General: The patient is awake and alert, had abdominal cramping pain several hours prior to coming emergency room, significantly less pain on examination in the ER. in no distress, and does not appear acutely ill. vital signs temp 97.4 pulse 60 respiratory rate 18 pulse ox 96% room air blood pressure 146/76 Eye: Pupils are equal, round and reactive to light, extra-ocular movements are intact ; there is normal conjunctiva bilaterally. mildly anicteric conjunctiva Ears, nose, mouth and throat: There are moist mucous membranes and no oral lesions. Neck: The neck is supple, there is no tenderness . Cardiovascular: There is a regular rate and rhythm. loud holosystolic murmur over the entire precordium. Respiratory: Lungs are clear to auscultation, respirations are non-labored, breath sounds are equal. No wheezes, stridor, rales, or rhonchi. Gastrointestinal: reducible ventral hernia, tender enlarged liver edge. Normal active bowel sounds. Last bowel movement yesterday. Back: There is no tenderness to palpation in the midline. Musculoskeletal: Normal ROM, no tenderness, chronic edema lower extremities.. Sensation intact. Pulses equal bilaterally 2+. Neurological: no apparent focal or lateralizing findings. No complaint of any deficits. Skin: skin appears mildly jaundiced Psychiatric: per son, mild dementia. Limitations: no limitations, language barrier Course Vital Signs 03/18/17 21:29 Temperature 97.4 F L Pulse Rate 60 Respiratory 18 Rate Blood Pressure 146/76 O2 Sat by Pulse 96 Oximetry Medical Decision Making - Medical Decision Making medical decision making; patient's white count 7.5 hemoglobin 10.8 hematocrit 31.8. Urine is clean no signs of infection 2 reds 1 white.bun 55 CREATININE 1.4 CREATININE 48. pOTASSIUM 4.4 inr 1.2. tOTAL BILIRUBIN 1.9. uRINE CLEAN NO SIGNS OF INFECTION. x-RAY OF THE ABDOMEN WAS DONE AND REVIEWED BY RADIOLOGIST HIS FINAL CONCLUSION AND IMPRESSION IS #1 NO EVIDENCE OF INTESTINAL OBSTRUCTION OR PERFORATION. #2 GROSSLY STABLE APPEARANCE OF THE RIGHT SIDE OF THE ABDOMEN SOLID ORGANS ALLOWING FOR INHERENT DIFFERENCES IN THE 2 MODALITIES. pERSISTENCE OR RECURRENT MODERATE RIGHT PLEURAL EFFUSION. sPECIFIC TO THE LIVER HEPATIC SPAN IS PROBABLY UNCHANGED ALLOWING FOR SOFT TISSUE SHADOW FROM ADJACENT RIGHT KIDNEY AND THE EXOPHYTIC HYPERDENSE LESION WHICH WERE DEMONSTRATED ON THE PRIOR ct Examination still finds discomfort with palpation of the liver edge. The ventral hernia is nontender and reducible. I discussed with the patient and son at bedside the current labs findings and x-rays. They'll follow-up with their family physician, Dr. Sethi. Currently pain-free - Lab Data Result diagrams: 03/18/17 22:33 03/18/17 22:33 Lab Results 03/18/17 03/18/17 03/18/17 Range/Units 22:33 22:33 22:33 WBC 7.5 (3.8-10.6) k/uL RBC 3.37 L (4.30-5.90) m/uL Hgb 10.8 L (13.0-17.5) gm/dL Hct 31.8 L (39.0-53.0) % MCV 94.2 (80.0-100.0) fL MCH 32.2 (25.0-35.0) pg MCHC 34.1 (31.0-37.0) g/dL RDW 16.9 H (11.5-15.5) % Plt Count 117 L (150-450) k/uL Neutrophils % 81 % Lymphocytes % 8 % Monocytes % 6 % Eosinophils % 2 % Basophils % 1 % Neutrophils # 6.1 (1.3-7.7) k/uL Lymphocytes # 0.6 L (1.0-4.8) k/uL Monocytes # 0.5 (0-1.0) k/uL Eosinophils # 0.2 (0-0.7) k/uL Basophils # 0.1 (0-0.2) k/uL Anisocytosis Slight PT (9.0-12.0) sec INR (<1.1) Sodium 144 (137-145) mmol/L Potassium 4.4 (3.5-5.1) mmol/L Chloride 115 H (98-107) mmol/L Carbon Dioxide 13 L (22-30) mmol/L Anion Gap 16 mmol/L BUN 55 H (9-20) mg/dL Creatinine 1.40 H (0.66-1.25) mg/dL Est GFR (MDRD) Af Amer 58 (>60 ml/min/1.73 sqM) Est GFR (MDRD) Non-Af 48 (>60 ml/min/1.73 sqM) Glucose 119 H (74-99) mg/dL Plasma Lactic Acid Antwon (0.7-2.0) mmol/L Calcium 8.9 (8.4-10.2) mg/dL Total Bilirubin 1.6 H (0.2-1.3) mg/dL AST 28 (17-59) U/L ALT 53 (21-72) U/L Alkaline Phosphatase 105 (38-126) U/L Total Protein 6.5 (6.3-8.2) g/dL Albumin 4.1 (3.5-5.0) g/dL Amylase 55 (30-110) U/L Lipase 123 (23-300) U/L Urine Color Yellow Urine Appearance Clear (Clear) Urine pH 5.5 (5.0-8.0) Ur Specific [place] 1.012 (1.001-1.035) Urine Protein Trace H (Negative) Urine Glucose (UA) Negative (Negative) Urine Ketones Negative (Negative) Urine Blood Trace H (Negative) Urine Nitrite Negative (Negative) Urine Bilirubin Negative (Negative) Urine Urobilinogen <2.0 (<2.0) mg/dL Ur Leukocyte Esterase Negative (Negative) Urine RBC 2 (0-5) /hpf Urine WBC 1 (0-5) /hpf Ur Squamous Epith Cells <1 (0-4) /hpf Urine Bacteria Rare H (None) /hpf Hyaline Casts 7 H (0-2) /lpf Urine Mucus Rare H (None) /hpf 03/18/17 03/18/17 Range/Units 22:33 22:35 WBC (3.8-10.6) k/uL RBC (4.30-5.90) m/uL Hgb (13.0-17.5) gm/dL Hct (39.0-53.0) % MCV (80.0-100.0) fL MCH (25.0-35.0) pg MCHC (31.0-37.0) g/dL RDW (11.5-15.5) % Plt Count (150-450) k/uL Neutrophils % % Lymphocytes % % Monocytes % % Eosinophils % % Basophils % % Neutrophils # (1.3-7.7) k/uL Lymphocytes # (1.0-4.8) k/uL Monocytes # (0-1.0) k/uL Eosinophils # (0-0.7) k/uL Basophils # (0-0.2) k/uL Anisocytosis PT 12.2 H (9.0-12.0) sec INR 1.2 (<1.1) Sodium (137-145) mmol/L Potassium (3.5-5.1) mmol/L Chloride (98-107) mmol/L Carbon Dioxide (22-30) mmol/L Anion Gap mmol/L BUN (9-20) mg/dL Creatinine (0.66-1.25) mg/dL Est GFR (MDRD) Af Amer (>60 ml/min/1.73 sqM) Est GFR (MDRD) Non-Af (>60 ml/min/1.73 sqM) Glucose (74-99) mg/dL Plasma Lactic Acid Antwon 0.8 (0.7-2.0) mmol/L Calcium (8.4-10.2) mg/dL Total Bilirubin (0.2-1.3) mg/dL AST (17-59) U/L ALT (21-72) U/L Alkaline Phosphatase (38-126) U/L Total Protein (6.3-8.2) g/dL Albumin (3.5-5.0) g/dL Amylase (30-110) U/L Lipase (23-300) U/L Urine Color Urine Appearance (Clear) Urine pH (5.0-8.0) Ur Specific [place] (1.001-1.035) Urine Protein (Negative) Urine Glucose (UA) (Negative) Urine Ketones (Negative) Urine Blood (Negative) Urine Nitrite (Negative) Urine Bilirubin (Negative) Urine Urobilinogen (<2.0) mg/dL Ur Leukocyte Esterase (Negative) Urine RBC (0-5) /hpf Urine WBC (0-5) /hpf Ur Squamous Epith Cells (0-4) /hpf Urine Bacteria (None) /hpf Hyaline Casts (0-2) /lpf Urine Mucus (None) /hpf Disposition Clinical Impression: Abdominal pain Disposition: HOME SELF-CARE Condition: Fair Instructions: Abdominal Pain (ED) Additional Instructions: advance diet and increase water. Follow-up with family physician return emergency room as needed. Referrals: Boni Sethi MD [Primary Care Provider] - 1-2 days Time of Disposition: 00:10
[2017-03-18 22:55] LABS: Anisocytosis Slight; Basophils # (A) 0.1 k/uL (0-0.2); Basophils % (A) 1 %; CH 31.7; CHCM 33.8; Eosinophils # (A) 0.2 k/uL (0-0.7); Eosinophils % (A) 2 %; HCT 31.8 % (39.0-53.0); HGB 10.8 gm/dL (13.0-17.5); Luc # (Auto) 0.11; Luc % (Auto) 2; Lymphocytes # (A) 0.6 k/uL (1.0-4.8); Lymphocytes % (A) 8 %; MCH 32.2 pg (25.0-35.0); MCHC 34.1 g/dL (31.0-37.0); MCV 94.2 fL (80.0-100.0); Mean Platelet Volume 8.8; Monocytes # (A) 0.5 k/uL (0-1.0); Monocytes % (A) 6 %; Neutrophils # (A) 6.1 k/uL (1.3-7.7); Neutrophils % (A) 81 %; RBC 3.37 m/uL (4.30-5.90); RDW 16.9 % (11.5-15.5); WBC 7.5 k/uL (3.8-10.6); WBC (Perox) 7.24
[2017-03-18 23:02] LABS: Appearance,Urine Clear (Clear); Bacteria,Urine Rare /hpf; Bilirubin,Urine Negative (Negative); Glucose,Urine (UA) Negative (Negative); Ketones,Urine Negative (Negative); Leukocyte Esterase,Urine Negative (Negative); Mucus,Urine Rare /hpf; Nitrite,Urine Negative (Negative); PH, Urine 5.5 (5.0-8.0); Particle Count 997; Protein,Urine Trace (Negative); RBC,Urine 2 /hpf (0-5); Specific Gravity,Urine 1.012 (1.001-1.035); Squamous Epithelial Cell,Urine <1 /hpf (0-4); UA Billing (MACRO vs. MICRO) MICRO; Urobilinogen,Urine <2.0 mg/dL (<2.0); WBC,Urine 1 /hpf (0-5)
[2017-03-18 23:07] LABS: Calcium 8.9 mg/dL (8.4-10.2); Potassium 4.4 mmol/L (3.5-5.1); Total Bilirubin 1.6 mg/dL (0.2-1.3); Total Protein 6.5 g/dL (6.3-8.2)
[2017-03-18 23:12] LABS: INR 1.2 (<1.1); Prothrombin Time 12.2 sec (9.0-12.0)
--- NOTE | 2017-03-18 23:12 | XR ---
EXAM: XR Abdomen Complete, 2 or More Views CLINICAL HISTORY: Reason: abd pain, ventral hernia, enlarged liver TECHNIQUE: Frontal view of the abdomen/pelvis with upright view of the abdomen. COMPARISON: 01/11/[address] FINDINGS: Lower thorax: Persistent or recurrent moderate right pleural effusion. Partially reimaged previous pacemaker/defibrillator and sternotomy with discontinuity of 2 of the visualized lower sternal wires Intraperitoneal space: No free air. Gastrointestinal tract: No grossly dilated bowel loops to suggest intestinal obstruction. Organs: Hepatic span is probably unchanged allowing for soft tissue shadow from adjacent right kidney and the exophytic hyperdense lesion which were demonstrated on the prior CT. Bones/joints: Stable including multilevel degenerative changes. Soft tissues: Right upper quadrant and right groin clips again present. Vasculature: Diffuse arterial vascular calcifications again present. IMPRESSION: 1. No evidence of intestinal obstruction or perforation. 2. Grossly stable appearance of the right-sided abdominal solid organs allowing for inherent differences in the 2 modalities. 2. Persistent or recurrent moderate right pleural effusion.
[2017-03-19 00:17] VITALS: BP 160/74; PULSE 57; RESP 16; TEMP 98
== END 2017-03-19 00:24 | disposition home or self-care (01) ==
LOC: EC 21:26
DX: K43.9 Ventral hernia without obstruction or gangrene (principal); R16.0 Hepatomegaly, not elsewhere classified; F03.90 Unspecified dementia, unspecified severity, without behavioral disturbance, psychotic disturbance, mood disturbance, and anxiety; E78.5 Hyperlipidemia, unspecified; I11.0 Hypertensive heart disease with heart failure; I50.9 Heart failure, unspecified; I25.10 Atherosclerotic heart disease of native coronary artery without angina pectoris; E11.9 Type 2 diabetes mellitus without complications; D50.9 Iron deficiency anemia, unspecified; M19.90 Unspecified osteoarthritis, unspecified site; N42.9 Disorder of prostate, unspecified; Z87.891 Personal history of nicotine dependence; Z79.4 Long term (current) use of insulin; Z79.82 Long term (current) use of aspirin; Z79.84 Long term (current) use of oral hypoglycemic drugs; Z79.899 Other long term (current) drug therapy; Z90.49 Acquired absence of other specified parts of digestive tract; Z86.79 Personal history of other diseases of the circulatory system; Z87.19 Personal history of other diseases of the digestive system
CPT/HCPCS: 36415; 74020; 80053; 81001; 82150; 83605; 83690; 85025; 85610; 96360; 96361; 99284

== ENCOUNTER 2017-04-10 16:36 | Inpatient (IN) | payer MEDICARE, BC ==
[2017-04-10 18:17] LABS: Anisocytosis Slight; Basophils % (A) 0 %; CH 32.1; CHCM 32.6; Eosinophils # (A) 0.2 k/uL (0-0.7); Eosinophils % (A) 2 %; HCT 36.4 % (39.0-53.0); HDW 3.02; HGB 11.6 gm/dL (13.0-17.5); Luc # (Auto) 0.08; Luc % (Auto) 1; Lymphocytes # (A) 0.4 k/uL (1.0-4.8); Lymphocytes % (A) 6 %; MCH 31.7 pg (25.0-35.0); MCV 99.1 fL (80.0-100.0); Macrocytosis Slight; Mean Platelet Volume 9.8; Monocytes # (A) 0.5 k/uL (0-1.0); Monocytes % (A) 6 %; Neutrophils % (A) 84 %; RBC 3.67 m/uL (4.30-5.90); RDW 17.2 % (11.5-15.5); WBC 7.2 k/uL (3.8-10.6); WBC (Perox) 7.89
[2017-04-10 18:25] LABS: INR 1.2 (<1.2); Partial Thromboplastin Time 25.1 sec (22.0-30.0); Prothrombin Time 12.3 sec (9.0-12.0)
--- NOTE | 2017-04-10 18:37 | XR ---
EXAMINATION TYPE: XR chest 2V DATE OF EXAM: 04/10/2017 COMPARISON: 01/11/2017 HISTORY: Short of breath TECHNIQUE: Frontal and lateral views of the chest are obtained. FINDINGS: Heart is enlarged. There is blunting of right costophrenic angle and fluid in the fissure on the right side. There is mild pulmonary vascular congestion. There is left axillary pacemaker with the lead tip in the right ventricle. There are chest leads. There are sternal wires. IMPRESSION: Mild congestive heart failure with increasing pleural fluid on the right side compared t o old exam.
[2017-04-10 18:38] LABS: ALT 34 U/L (21-72); AST 20 U/L (17-59); Alkaline Phosphatase 156 U/L (38-126); Anion Gap 11 mmol/L; Blood Urea Nitrogen 48 mg/dL (9-20); Calcium 8.9 mg/dL (8.4-10.2); Carbon Dioxide 15 mmol/L (22-30); Chloride 118 mmol/L (98-107); Glucose 148 mg/dL (74-99); Magnesium 2.5 mg/dL (1.6-2.3); Non-African American GFR(MDRD) 53 (>60 ml/min/1.73 sqM); Potassium 5.4 mmol/L (3.5-5.1); Sodium 144 mmol/L (137-145); Total Bilirubin 2.3 mg/dL (0.2-1.3); Total Protein 6.2 g/dL (6.3-8.2)
[2017-04-10 18:50] LABS: Troponin I 0.016 ng/mL (0.000-0.034)
[2017-04-10 18:54] LABS: Creatine Kinase MB 4.3 ng/mL (0.0-2.4)
[2017-04-10] MEDS ORDERED: ASPIRIN 325 MG TAB PO STA (18:59)
[2017-04-10] MEDS ORDERED: FUROSEMIDE 10 MG/ML 4 ML VIAL IV STA (18:59)
[2017-04-10] MEDS ORDERED: NALOXONE 0.4 MG/ML 1 ML VIAL IV PRN (20:26)
[2017-04-10] MEDS ORDERED: ONDANSETRON 4 MG/2 ML VIAL IVP PRN (20:26)
--- NOTE | 2017-04-10 20:45 | ED ---
General Adult HPI - General Chief complaint: Shortness of Breath Stated complaint: Difficulty Breathing Time Seen by Provider: 04/10/17 17:45 Source: patient, family, RN notes reviewed Mode of arrival: wheelchair Limitations: no limitations - History of Present Illness Initial comments: 87 yo male with history diabetes, hypertension, and congestive heart failure presents with difficulty breathing. Patient has been on Lasix 40 mg the morning and 20 mg at night. His daughter who is at bedside is also his caregiver states he has had worsening bilateral lower extremity swelling and difficulty breathing for the past 1-2 weeks. Is also had a 12 pound weight gain over that time. Patient denies chest pain. Denies fever or chills. Denies abdominal pain. Patient was recently started on cholestyramine, no other changes to medications recently. No significant change in diet. - Related Data Home Medications Medication Instructions Recorded Confirmed Pantoprazole Sodium [Protonix] 40 mg PO DAILY 01/31/14 04/10/17 Atorvastatin [Lipitor] 10 mg PO HS 07/18/14 04/10/17 Ascorbic Acid [Vitamin C] 500 mg PO HS 02/05/16 04/10/17 Ferrous Sulfate [Iron (65 MG 325 mg PO HS 02/05/16 04/10/17 Elemental)] Insulin Glargine,Hum.rec.anlog 5 units SQ DAILY 02/05/16 04/10/17 [[place] Solostar] Losartan [Cozaar] 25 mg PO HS 06/21/16 04/10/17 Nitroglycerin Sl Tabs [Nitrostat] 0.4 mg SUBLINGUAL Q5M PRN 06/21/16 04/10/17 Isosorbide Mononitrate ER [Imdur] 30 mg PO BID 12/25/16 04/10/17 Tamsulosin HCl [Flomax] 0.4 mg PO QAM 12/27/16 04/10/17 Cholestyramine (with Sugar) 4 gm PO BID 04/10/17 04/10/17 [Questran] Furosemide [Lasix] 20 mg PO HS 04/10/17 04/10/17 Furosemide [Lasix] 40 mg PO QAM 04/10/17 04/10/17 Metoprolol Tartrate [Lopressor] 25 mg PO BID 04/10/17 04/10/17 Spironolactone [Aldactone] 25 mg PO DAILY 04/10/17 04/10/17 Previous Rx's Medication Instructions Recorded Digoxin [Lanoxin] 125 mcg PO DAILY #0 07/24/14 Citalopram Hydrobromide [CeleXA] 10 mg PO DAILY tab 12/30/16 Donepezil [Aricept] 5 mg PO HS tab 12/30/16 Allergies Allergy/AdvReac Type Severity Reaction Status Date / Time No Known Allergies Allergy Verified 04/10/17 18:31 Review of Systems ROS Statement: Those systems with pertinent positive or pertinent negative responses have been documented in the HPI. ROS Other: All systems not noted in ROS Statement are negative. Past Medical History Past Medical History: Coronary Artery Disease (CAD), Chest Pain / Angina, Heart Failure, Diabetes Mellitus, GI Bleed, Hyperlipidemia, Hypertension, Memory Impairment, Osteoarthritis (OA), Prostate Disorder, Renal Disease, Skin Disorder Additional Past Medical History / Comment(s): ANEMIA, IRON DEFICIENCY. RECENT SL COUGH. Memory loss has been progressivley getting worse. HAS PRE-CA LESIONS FACE. cysts on kidney, incont of urine History of Any Multi-Drug Resistant Organisms: None Reported Past Surgical History: AICD, Appendectomy, Cholecystectomy, Coronary Bypass/CABG , Heart Catheterization With Stent, Prostate Surgery, Tonsillectomy Additional Past Surgical History / Comment(s): AICD, ST CECE. CABG 1994, 1982. RESECTIO PSEUDOANEURYSM RT FEM ARTERY. TURP. pt had battery to aicd replaced this may 2014, RT EYE SX(HAD FLUID BEHIND EYE) Past Anesthesia/Blood Transfusion Reactions: No Reported Reaction Additional Past Anesthesia/Blood Transfusion Reaction / Comment(s): LAST TRANSFUSION 12/2013 Date of Last Stent Placement:: 2008 Type of Cardiac Device: Permanent Pacemaker, AICD Device Placement Date:: 2008 Past Psychological History: Anxiety Smoking Status: Former smoker Past Alcohol Use History: None Reported Past Drug Use History: None Reported - Past Family History Mother Family Medical History: Diabetes Mellitus Father Additional Family Medical History / Comment(s): emphysema General Exam Limitations: no limitations General appearance: alert, in no apparent distress Head exam: Present: atraumatic, normocephalic Eye exam: Present: normal appearance, PERRL ENT exam: Present: normal exam, mucous membranes moist Neck exam: Present: normal inspection, full ROM. Absent: tenderness, meningismus Respiratory exam: Present: respiratory distress, rales, decreased breath sounds Cardiovascular Exam: Present: regular rate, normal rhythm GI/Abdominal exam: Present: soft. Absent: distended, tenderness Extremities exam: Present: pedal edema (2+ pitting edema bilaterally) Neurological exam: Present: alert, CN II-XII intact. Absent: motor sensory deficit Psychiatric exam: Present: normal affect, normal mood Skin exam: Present: warm, dry. Absent: cyanosis, diaphoretic Course Vital Signs 04/10/17 04/10/17 04/10/17 16:45 18:16 18:37 Temperature 98.0 F Pulse Rate 63 61 Respiratory 18 20 14 Rate Blood Pressure 166/74 158/60 O2 Sat by Pulse 98 92 L Oximetry 04/10/17 19:21 Temperature Pulse Rate 62 Respiratory 18 Rate Blood Pressure 156/74 O2 Sat by Pulse 97 Oximetry EKG Findings - EKG Comments: EKG Findings:: Ventricular paced rhythm, rate is 60, castration 188, QTC 484, no discordant ST segment elevation in the precordium Medical Decision Making - Medical Decision Making 87 male with history congestive heart failure, worsening bilateral lower external swelling, troponin leak gain and difficulty breathing. Chest x-ray does show pulmonary edema with pleural effusion. Laboratory studies reveals mild acute kidney injury, potassium 5.4, headache enzymes are within normal limits, BNP is 10,000. EKG is ventricular paced, no signs of acute ischemia. Patient is given aspirin and IV Lasix in the emergency department. He will be admitted for further diuresis and cardiology evaluation. - Lab Data Result diagrams: 04/10/17 18:05 04/10/17 18:05 Lab Results 04/10/17 04/10/17 04/10/17 Range/Units 18:05 18:05 18:05 WBC 7.2 (3.8-10.6) k/uL RBC 3.67 L (4.30-5.90) m/uL Hgb 11.6 L (13.0-17.5) gm/dL Hct 36.4 L (39.0-53.0) % MCV 99.1 (80.0-100.0) fL MCH 31.7 (25.0-35.0) pg MCHC 32.0 (31.0-37.0) g/dL RDW 17.2 H (11.5-15.5) % Plt Count 116 L (150-450) k/uL Neutrophils % 84 % Lymphocytes % 6 % Monocytes % 6 % Eosinophils % 2 % Basophils % 0 % Neutrophils # 6.0 (1.3-7.7) k/uL Lymphocytes # 0.4 L (1.0-4.8) k/uL Monocytes # 0.5 (0-1.0) k/uL Eosinophils # 0.2 (0-0.7) k/uL Basophils # 0.0 (0-0.2) k/uL Anisocytosis Slight Macrocytosis Slight PT (9.0-12.0) sec INR (<1.2) APTT (22.0-30.0) sec Sodium 144 (137-145) mmol/L Potassium 5.4 H (3.5-5.1) mmol/L Chloride 118 H (98-107) mmol/L Carbon Dioxide 15 L (22-30) mmol/L Anion Gap 11 mmol/L BUN 48 H (9-20) mg/dL Creatinine 1.28 H (0.66-1.25) mg/dL Est GFR (MDRD) Af Amer >60 (>60 ml/min/1.73 sqM) Est GFR (MDRD) Non-Af 53 (>60 ml/min/1.73 sqM) Glucose 148 H (74-99) mg/dL Calcium 8.9 (8.4-10.2) mg/dL Magnesium 2.5 H (1.6-2.3) mg/dL Total Bilirubin 2.3 H (0.2-1.3) mg/dL AST 20 (17-59) U/L ALT 34 (21-72) U/L Alkaline Phosphatase 156 H (38-126) U/L Total Creatine Kinase 69 (55-170) U/L CK-MB (CK-2) 4.3 H* (0.0-2.4) ng/mL CK-MB (CK-2) Rel Index 6.2 Troponin I 0.016 (0.000-0.034) ng/mL NT-Pro-B Natriuret Pep pg/mL Total Protein 6.2 L (6.3-8.2) g/dL Albumin 3.7 (3.5-5.0) g/dL 04/10/17 04/10/17 Range/Units 18:05 18:05 WBC (3.8-10.6) k/uL RBC (4.30-5.90) m/uL Hgb (13.0-17.5) gm/dL Hct (39.0-53.0) % MCV (80.0-100.0) fL MCH (25.0-35.0) pg MCHC (31.0-37.0) g/dL RDW (11.5-15.5) % Plt Count (150-450) k/uL Neutrophils % % Lymphocytes % % Monocytes % % Eosinophils % % Basophils % % Neutrophils # (1.3-7.7) k/uL Lymphocytes # (1.0-4.8) k/uL Monocytes # (0-1.0) k/uL Eosinophils # (0-0.7) k/uL Basophils # (0-0.2) k/uL Anisocytosis Macrocytosis PT 12.3 H (9.0-12.0) sec INR 1.2 H (<1.2) APTT 25.1 (22.0-30.0) sec Sodium (137-145) mmol/L Potassium (3.5-5.1) mmol/L Chloride (98-107) mmol/L Carbon Dioxide (22-30) mmol/L Anion Gap mmol/L BUN (9-20) mg/dL Creatinine (0.66-1.25) mg/dL Est GFR (MDRD) Af Amer (>60 ml/min/1.73 sqM) Est GFR (MDRD) Non-Af (>60 ml/min/1.73 sqM) Glucose (74-99) mg/dL Calcium (8.4-10.2) mg/dL Magnesium (1.6-2.3) mg/dL Total Bilirubin (0.2-1.3) mg/dL AST (17-59) U/L ALT (21-72) U/L Alkaline Phosphatase (38-126) U/L Total Creatine Kinase (55-170) U/L CK-MB (CK-2) (0.0-2.4) ng/mL CK-MB (CK-2) Rel Index Troponin I (0.000-0.034) ng/mL NT-Pro-B Natriuret Pep 23500 pg/mL Total Protein (6.3-8.2) g/dL Albumin (3.5-5.0) g/dL Disposition Clinical Impression: CHF (congestive heart failure) Disposition: ADMITTED IP TO THIS [facility] Condition: Stable Referrals: Boni Sethi MD [Primary Care Provider] - 1-2 days Decision to Admit Reason: Admit from EC Decision Date: 04/10/17 Decision Time: 19:55
[2017-04-10] MEDS ORDERED: METOPROLOL TARTRATE 50 MG TAB PO SCH (21:00)
[2017-04-10 21:29] LABS: Glucose,Whole Blood 102 mg/dL (75-99)
[2017-04-10 21:43] VITALS: BMI 25.9
[2017-04-10] MEDS: FUROSEMIDE 10 MG/ML 4 ML VIAL IV SCH (22:34)
[2017-04-10] MEDS: LOSARTAN 25 MG TAB PO SCH (22:34)
[2017-04-10] MEDS: ATORVASTATIN 10 MG TAB PO SCH (22:34)
[2017-04-10] MEDS: ISOSORBIDE MONONITRATE ER 30 MG TAB.ER.24H PO SCH (22:34)
[2017-04-10] MEDS: METOPROLOL TARTRATE 25 MG TAB PO SCH (22:35)
[2017-04-11 01:04] LABS: Troponin I 0.026 ng/mL (0.000-0.034)
[2017-04-11 03:00] LABS: Appearance,Urine Clear (Clear); Bilirubin,Urine Negative (Negative); Glucose,Urine (UA) Negative (Negative); Ketones,Urine Negative (Negative); Leukocyte Esterase,Urine Negative (Negative); Nitrite,Urine Negative (Negative); Particle Count 466; Protein,Urine Negative (Negative); Specific Gravity,Urine 1.005 (1.001-1.035); Squamous Epithelial Cell,Urine <1 /hpf (0-4); UA Billing (MACRO vs. MICRO) MICRO; Urobilinogen,Urine <2.0 mg/dL (<2.0); WBC,Urine <1 /hpf (0-5)
[2017-04-11 05:52] LABS: Anisocytosis Slight; Basophils # (A) 0.1 k/uL (0-0.2); Basophils % (A) 1 %; CH 31.7; CHCM 32.2; Eosinophils # (A) 0.3 k/uL (0-0.7); Eosinophils % (A) 4 %; HCT 34.9 % (39.0-53.0); HDW 3.03; HGB 11.3 gm/dL (13.0-17.5); Hypochromasia Slight; Luc # (Auto) 0.13; Luc % (Auto) 2; Lymphocytes # (A) 0.5 k/uL (1.0-4.8); Lymphocytes % (A) 9 %; MCH 32.2 pg (25.0-35.0); MCHC 32.4 g/dL (31.0-37.0); MCV 99.2 fL (80.0-100.0); Macrocytosis Slight; Mean Platelet Volume 8.2; Monocytes # (A) 0.4 k/uL (0-1.0); Monocytes % (A) 7 %; Neutrophils # (A) 4.8 k/uL (1.3-7.7); Neutrophils % (A) 78 %; RBC 3.52 m/uL (4.30-5.90); RDW 16.8 % (11.5-15.5); WBC 6.2 k/uL (3.8-10.6); WBC (Perox) 6.47
[2017-04-11 06:04] LABS: ALT 41 U/L (21-72); AST 20 U/L (17-59); Alkaline Phosphatase 160 U/L (38-126); Anion Gap 12 mmol/L; Blood Urea Nitrogen 51 mg/dL (9-20); Calcium 9.2 mg/dL (8.4-10.2); Carbon Dioxide 16 mmol/L (22-30); Chloride 116 mmol/L (98-107); Digoxin 0.7 ng/mL; Glucose 89 mg/dL (74-99); Iron 59 ug/dL (49-181); Magnesium 2.3 mg/dL (1.6-2.3); Non-African American GFR(MDRD) 52 (>60 ml/min/1.73 sqM); Potassium 4.8 mmol/L (3.5-5.1); Sodium 144 mmol/L (137-145); Total Bilirubin 3.1 mg/dL (0.2-1.3); Uric Acid 7.9 mg/dL (3.5-8.5)
[2017-04-11 06:06] LABS: Glucose,Whole Blood 85 mg/dL (75-99)
[2017-04-11 06:11] LABS: % Iron Saturation 21.8 % (20-50); Total Iron Binding Capacity 271 ug/dL (261-462)
[2017-04-11] MEDS: INSULIN LISPRO (humaLOG) 300 UNIT/3 ML VIAL SQ SCH ×4 (06:13→20:44)
[2017-04-11] MEDS: PANTOPRAZOLE 40 MG TABLET PO SCH (06:24)
[2017-04-11 06:26] LABS: Troponin I 0.021 ng/mL (0.000-0.034)
[2017-04-11 06:36] LABS: Creatine Kinase MB 3.8 ng/mL (0.0-2.4)
--- NOTE | 2017-04-11 08:22 | P.CRDCN ---
History of Present Illness Consult date: 04/11/17 Requesting physician: Boni Sethi Consult reason: congestive heart failure Chief complaint: Shortness of breath and leg swelling History of present illness: This is an 87-year-old gentleman with known history of coronary artery disease, prior myocardial infarction, prior bypass surgery, ischemic cardiomyopathy with prior AICD implantation, chronic persistent atrial fibrillation, hypertension, hyperlipidemia, dementia, who presented to the hospital with symptoms of progressively worsening shortness of breath. His daughter also apparently noted that the patient had significant increase in his leg swelling. Chest x-ray on admission revealed mild congestive heart failure with increasing pleural fluid on the right side as compared to prior. EKG shows a ventricular paced rhythm with underlying atrial fibrillation. White blood cell count 6.2, hemoglobin 11.3, platelet count 129. Sodium 144, potassium 4.8, BUN 51, creatinine 1.3. Magnesium 2.3. Alk phos 156 and 160. Troponins 0.016, 0.026, 0.021. BNP level 10,600. Free T4 1 0.3, TSH 3.6. Blood pressure 132/60 with a heart rate in the 60s. 94% on room air. The patient was initiated on IV Lasix in the emergency room, he has diuresed through the night, his weight is not reflective of the cyst morning. At the time of my examination, patient is somewhat confused, he does state that his breathing feels okay, continues to have 2+ peripheral edema. Past Medical History Past Medical History: Coronary Artery Disease (CAD), Chest Pain / Angina, Heart Failure, Diabetes Mellitus, GI Bleed, Hyperlipidemia, Hypertension, Memory Impairment, Osteoarthritis (OA), Prostate Disorder, Renal Disease, Skin Disorder Additional Past Medical History / Comment(s): ANEMIA, IRON DEFICIENCY. RECENT SL COUGH. Memory loss has been progressivley getting worse. HAS PRE-CA LESIONS FACE. cysts on kidney, incont of urine. PER PT'S DAUGHTER, EVER SINCE GALL BLADDER SX PT HAS HAD LOOSE STOOLS- UNABLE TO OBTAIN HOW OFTEN History of Any Multi-Drug Resistant Organisms: None Reported Past Surgical History: AICD, Appendectomy, Cholecystectomy, Coronary Bypass/CABG , Heart Catheterization With Stent, Prostate Surgery, Tonsillectomy Additional Past Surgical History / Comment(s): AICD, ST CECE. CABG 1982 [id number]. 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 TURP, HAD BATTERY TO AICD CHANGED. RT EYE SX(FLUID BEHIND EYE). Past Anesthesia/Blood Transfusion Reactions: No Reported Reaction Additional Past Anesthesia/Blood Transfusion Reaction / Comment(s): LAST TRANSFUSION 12/2013 Date of Last Stent Placement:: 2008 Type of Cardiac Device: Permanent Pacemaker, AICD Device Placement Date:: 2008 Smoking Status: Former smoker - Past Family History Mother Family Medical History: Diabetes Mellitus Father Additional Family Medical History / Comment(s): emphysema Medications and Allergies Home Medications Medication Instructions Recorded Confirmed Type Pantoprazole Sodium [Protonix] 40 mg PO DAILY 01/31/14 04/10/17 History Atorvastatin [Lipitor] 10 mg PO HS 07/18/14 04/10/17 History Ascorbic Acid [Vitamin C] 500 mg PO HS 02/05/16 04/10/17 History Ferrous Sulfate [Iron (65 MG 325 mg PO HS 02/05/16 04/10/17 History Elemental)] Insulin Glargine,Hum.rec.anlog 5 units SQ DAILY 02/05/16 04/10/17 History [Toujeo Solostar] Losartan [Cozaar] 25 mg PO HS 06/21/16 04/10/17 History Nitroglycerin Sl Tabs [Nitrostat] 0.4 mg SUBLINGUAL Q5M PRN 06/21/16 04/10/17 History Isosorbide Mononitrate ER [Imdur] 30 mg PO BID 12/25/16 04/10/17 History Tamsulosin HCl [Flomax] 0.4 mg PO QAM 12/27/16 04/10/17 History Cholestyramine (with Sugar) 4 gm PO BID 04/10/17 04/10/17 History [Questran] Furosemide [Lasix] 20 mg PO HS 04/10/17 04/10/17 History Furosemide [Lasix] 40 mg PO QAM 04/10/17 04/10/17 History Metoprolol Tartrate [Lopressor] 25 mg PO BID 04/10/17 04/10/17 History Spironolactone [Aldactone] 25 mg PO DAILY 04/10/17 04/10/17 History Allergies Allergy/AdvReac Type Severity Reaction Status Date / Time No Known Allergies Allergy Verified 04/10/17 18:31 Physical Exam Vitals: Vital Signs Temp Pulse Pulse Resp BP BP Pulse Ox 04/11/17 04:00 96.9 F L 62 18 133/68 94 L 04/11/17 00:00 98.0 F 60 18 139/62 100 04/10/17 21:31 96.7 F L 60 18 145/75 04/10/17 21:15 96.7 F L 60 18 145/75 98 04/10/17 21:09 97.8 F 73 18 157/73 98 04/10/17 20:35 73 18 139/60 97 04/10/17 19:21 62 18 156/74 97 04/10/17 18:37 14 04/10/17 18:16 61 20 158/60 92 L 04/10/17 16:45 98.0 F 63 18 166/74 98 Intake and Output 04/10/17 04/11/17 04/11/17 22:59 06:59 14:59 Output Total 1100 Balance -1100 Output: Urine 1100 Other: # Voids 1 Weight 75 kg 76.6 kg PHYSICAL EXAMINATION: HEENT: Head is atraumatic, normocephalic. Pupils equal, round. Neck is supple. There is elevated jugular venous pressure. HEART EXAMINATION: Heart S1 and S2 systolic murmur is heard CHEST EXAMINATION: Lungs Reveal diminished air entry to bilateral bases, right greater than the left. ABDOMEN: Soft, nontender. Bowel sounds are heard. No organomegaly noted. EXTREMITIES: 2+ peripheral pulses with 2+ evidence of peripheral edema and no calf tenderness noted. NEUROLOGIC patient is awake, alert and oriented -1. . Results 04/11/17 05:16 04/11/17 05:16 Cardiac Enzymes 04/10/17 04/10/17 04/11/17 Range/Units 18:05 18:05 00:10 AST 20 (17-59) U/L CK-MB (CK-2) 4.3 H* 4.0 H* (0.0-2.4) ng/mL Troponin I 0.016 0.026 (0.000-0.034) ng/mL 04/11/17 04/11/17 Range/Units 05:16 05:16 AST 20 (17-59) U/L CK-MB (CK-2) 3.8 H* (0.0-2.4) ng/mL Troponin I 0.021 (0.000-0.034) ng/mL Coagulation 04/10/17 Range/Units 18:05 PT 12.3 H (9.0-12.0) sec APTT 25.1 (22.0-30.0) sec CBC 04/10/17 04/11/17 Range/Units 18:05 05:16 WBC 7.2 6.2 (3.8-10.6) k/uL RBC 3.67 L 3.52 L (4.30-5.90) m/uL Hgb 11.6 L 11.3 L (13.0-17.5) gm/dL Hct 36.4 L 34.9 L (39.0-53.0) % Plt Count 116 L 129 L (150-450) k/uL Comprehensive Metabolic Panel 04/10/17 04/11/17 Range/Units 18:05 05:16 Sodium 144 144 (137-145) mmol/L Potassium 5.4 H 4.8 (3.5-5.1) mmol/L Chloride 118 H 116 H (98-107) mmol/L Carbon Dioxide 15 L 16 L (22-30) mmol/L BUN 48 H 51 H (9-20) mg/dL Creatinine 1.28 H 1.30 H (0.66-1.25) mg/dL Glucose 148 H 89 (74-99) mg/dL Calcium 8.9 9.2 (8.4-10.2) mg/dL AST 20 20 (17-59) U/L ALT 34 41 (21-72) U/L Alkaline Phosphatase 156 H 160 H (38-126) U/L Total Protein 6.2 L 6.0 L (6.3-8.2) g/dL Albumin 3.7 3.5 (3.5-5.0) g/dL Current Medications Generic Name Dose Route Start Last Admin Trade Name Freq PRN Reason Stop Dose Admin Ascorbic Acid 500 mg 04/11/17 21:00 Vitamin C PO HS [facility] Atorvastatin Calcium 10 mg 04/10/17 21:00 04/10/17 22:34 Lipitor PO 10 mg HS [facility] Administration Cholestyramine Resin 4 gm 04/11/17 10:00 Questran PO BID@1000,1800 [facility] Citalopram Hydrobromide 10 mg 04/11/17 09:00 Celexa PO DAILY [facility] Digoxin 125 mcg 04/11/17 09:00 Lanoxin PO DAILY [facility] Donepezil HCl 5 mg 04/11/17 21:00 Aricept PO HS [facility] Furosemide 40 mg 04/10/17 21:00 04/10/17 22:34 Lasix IV 40 mg Q12HR [facility] Administration Insulin Human Lispro 0 unit 04/11/17 07:30 04/11/17 06:13 Humalog SQ Not Given ACHS [facility] Protocol Isosorbide Mononitrate 30 mg 04/10/17 21:00 04/10/17 22:34 Imdur PO 30 mg BID [facility] Administration Losartan Potassium 25 mg 04/10/17 21:00 04/10/17 22:34 Cozaar PO 25 mg HS [facility] Administration Metoprolol Tartrate 25 mg 04/10/17 21:45 04/10/17 22:35 Lopressor PO 25 mg BID [facility] Administration Naloxone HCl 0.2 mg 04/10/17 20:26 Narcan IV Q2M PRN Opioid Reversal Ondansetron HCl 4 mg 04/10/17 20:26 Zofran IVP Q8HR PRN Nausea And Vomiting Pantoprazole Sodium 40 mg 04/11/17 07:30 04/11/17 06:24 Protonix PO 40 mg [id number] [facility] Administration Spironolactone 12.5 mg 04/11/17 09:00 Aldactone PO DAILY [facility] Tamsulosin HCl 0.4 mg 04/11/17 09:00 Flomax PO QAM [facility] Intake and Output 04/10/17 04/11/17 04/11/17 22:59 06:59 14:59 Output Total 1100 Balance -1100 Output: Urine 1100 Other: # Voids 1 Weight 75 kg 76.6 kg 04/11/17 05:16 04/11/17 05:16 EKG Interpretations (text) EKG shows a ventricular paced rhythm with underlying atrial fibrillation Assessment and Plan Plan: Assessment and plan #1 systolic congestive heart failure acute on chronic #2 ischemic cardiomyopathy with prior AICD #3 known history of coronary artery disease with prior bypass surgery 2 as well as stent placements #4 hypertension Number 5 chronic persistent atrial fibrillation #6 hyperlipidemia #7 dementia Plan We will obtain a repeat echocardiogram with Doppler study. Continue current dose of IV Lasix. Patient is not currently on Coumadin for anticoagulation, he has been on it in the past, not sure at this point if it had been discontinued because of dementia, we will look into the old records to determine why the patient is not on anticoagulation at this time. Continue to monitor intake and output along with daily weights. Continue IV diuretics, beta romeo, Aldactone , losartan. Further recommendations to follow. DNP note has been reviewed, I agree with a documented findings and plan of care. Patient was seen and examined.
[2017-04-11] MEDS: FUROSEMIDE 10 MG/ML 4 ML VIAL IV SCH ×2 (08:28→20:42)
[2017-04-11] MEDS: ISOSORBIDE MONONITRATE ER 30 MG TAB.ER.24H PO SCH ×2 (08:32→20:26)
[2017-04-11] MEDS: DIGOXIN 125 MCG TAB PO SCH (08:32)
[2017-04-11] MEDS: CITALOPRAM HYDROBROMIDE 10 MG TAB PO SCH (08:32)
[2017-04-11] MEDS: SPIRONOLACTONE 25 MG TAB PO SCH (08:33)
[2017-04-11] MEDS: METOPROLOL TARTRATE 25 MG TAB PO SCH ×2 (08:34→20:26)
[2017-04-11] MEDS: TAMSULOSIN 0.4 MG CAP.ER.24H PO SCH (08:34)
[2017-04-11] MEDS ORDERED: SPIRONOLACTONE 25 MG TAB PO SCH (09:00)
[2017-04-11 09:14] LABS: Hemoglobin A1C 7.2 % (4.2-6.1)
[2017-04-11] MEDS ORDERED: CHOLESTYRAMINE (WITH SUGAR) 4 GM PACKET PO SCH (10:00)
--- NOTE | 2017-04-11 10:14 | P.HPIM ---
History of Present Illness H&P Date: 04/11/17 (Dr. Sethi patient) Chief Complaint: Difficulty of breathing with edema of the lower extremities, CHF This is dictation on admission history and physical, date of service 04/11/2017 , PCP Dr. Sethi. Patient seen and examined discussed with his daughter on the date of admission. And dictation of the history and physical in the temporary absence of Dr. Sethi. Chief complaint: Shortness of breath progressively worsening. Presented at the emergency room on 04/10/2017 in the evening. History of present illness: 87 years old white male originally from [facility]. Discussed with his daughter who is a caregiver. Patient with Alzheimer and forgetfulness could not give clear history of his complaint. His daughter who is an materials engineer she give us the history. Patient has progressively short of breath with the edema of the lower extremities and decreased his ability to move around and gained 12 pounds. Patient with history of significant congestive heart failure which has been systolic and diastolic combined with acute exacerbation. Also has underlying history of ischemic cardiomyopathy with the infraclavicular on the left side AICD. He has also history of coronary artery disease and resistant Atrovent fibrillation hyperlipidemia and dementia. New Past medical history he had AICD appendectomy cholecystectomy laparoscopically coronary artery bypass with three-vessel bypass twice and he has also stent he has prostatic surgery and tonsillectomy. He has underlying the CABG was done in 1982 and 1996 with resection of pseudoaneurysm right femoral artery he has also TURP. His pacemaker in 2008 he also ex-smoker. Past history of diabetes mellitus with the event of controlled blood sugar insulin has been was held long -acting and he is on insulin to scale only with the blood sugar control. Patient has chronic kidney disease. History of recurrent congestive heart failure. Atrovent fibrillation, history of GI bleeding and the daughter refused anti-coagulant due to his previous GI bleeding and she stated he is only on aspirin once a day. His ip attorney in [place] and in [place]. Medications reviewed and adjusted. ALLERGY is unknown. Family history: He is a , 3 children 2 boys and one girl. He has sibling still alive [facility]. Review of system: Patient is conscious alert intermittently confused and could not give valid history except short of breath. His hearing has been deteriorated with 60% at this time per his daughter. Vision currently stable with glasses. No history of stroke moving [place] extremities, and he has underlying dementia and depression. Respiratory: Shortness of breath Cardiac AICD with pacemaker and chronic Atrovent fibrillation and recurrent congestive heart failure GI Fede history of GI bleeding in the past with the refusal of anticoagulant only aspirin and SCDs. history of incontinent associated with TURP in the past. And chronic kidney disease. Endocrine: Diabetes mellitus which is currently appear to be controlled with the association of chronic kidney disease. Musculoskeletal generalized weakness associated with congestive heart failure. Other than 14 point has been reviewed with no other finding. Physical exam: HEENT: Head was normocephalic and atraumatic oropharynx natural teeth, uvula midline no fascial asymmetry. Neck supple positive JVD no thyromegaly no lymphadenopathy trachea midline line . Chest: Bilateral basilar rhonchi's was rales decrease her entry on the lower basis. Heart: the left infraclavicular pacemaker and AICD for the defibrillator with the underlying chronic atrial fibrillation and cardiomegaly and cardiomyopathy Abdomen mildly distended, bladder distention with the bladder scan 355 postvoid was 50. With the underlying urinary incontinent history of TURP and a history of chronic kidney disease. Extremities 3+ pitting edema extended from the foot to the knee with the mild improvement with the diuresis Lasix IV. Neurologically: His daughter stated that his balance has been progressively worse and the however he still ambulatory and moving 4 extremities with no evidence of stroke he had underlying dementia probably Alzheimer's type.. Assessment: #1 acute congestive heart failure systolic on the top of chronic with the underlying history of ischemic cardiomyopathy. Underlying pulmonary edema on admission from the emergency room. #3 chronic kidney disease #4 diabetes mellitus type 2 was on insulin currently has been only on the CBG to scale with the hypoglycemic prevention. #4 metabolic acidosis with the use carbon dioxide 16 probably associated with that kidney #5 dementia. #6 hyper bilirubinemia past laparoscopic cholecystectomy was treated with cholestyramine however the daughter thought that it may interfere with the Lasix as she increased her Lasix at home with no improvement for his progressive edema of the lower extremities as well as progressive congestive heart failure. #7 underlying chronic anemia however iron studies was normal which indicating anemia of chronic disease with the possibility associated with that kidney disease as well. #8 hyperkalemia on admission has been resolved with adjustment on medication and this morning is normal with the use of also Lasix. Plan: #1 continuing the Lasix IV for diuresis #2 obtaining ultrasound of the abdomen with the underlying chronic kidney disease and history of cirrhosis of the liver and the was unclear etiology and underlying thrombocytopenia. #3 consultation with the cardiology #4 hold on the iron supplementation as his iron study is normal. And the continue the medication as well as holding with the cholestyramine as well. 9 farther treatment depend on the investigation and evaluation line copy to Dr. Sethi Past Medical History Past Medical History: Coronary Artery Disease (CAD), Chest Pain / Angina, Heart Failure, Diabetes Mellitus, GI Bleed, Hyperlipidemia, Hypertension, Memory Impairment, Osteoarthritis (OA), Prostate Disorder, Renal Disease, Skin Disorder Additional Past Medical History / Comment(s): ANEMIA, IRON DEFICIENCY. RECENT SL COUGH. Memory loss has been progressivley getting worse. HAS PRE-CA LESIONS FACE. cysts on kidney, incont of urine. PER PT'S DAUGHTER, EVER SINCE GALL BLADDER SX PT HAS HAD LOOSE STOOLS- UNABLE TO OBTAIN HOW OFTEN History of Any Multi-Drug Resistant Organisms: None Reported Past Surgical History: AICD, Appendectomy, Cholecystectomy, Coronary Bypass/CABG , Heart Catheterization With Stent, Prostate Surgery, Tonsillectomy Additional Past Surgical History / Comment(s): AICD, ST CECE. CABG 1982 [id number]. 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 TURP, HAD BATTERY TO AICD CHANGED. RT EYE SX(FLUID BEHIND EYE). Past Anesthesia/Blood Transfusion Reactions: No Reported Reaction Additional Past Anesthesia/Blood Transfusion Reaction / Comment(s): LAST TRANSFUSION 12/2013 Date of Last Stent Placement:: 2008 Type of Cardiac Device: Permanent Pacemaker, AICD Device Placement Date:: 2008 Smoking Status: Former smoker - Past Family History Mother Family Medical History: Diabetes Mellitus Father Additional Family Medical History / Comment(s): emphysema Medications and Allergies Home Medications Medication Instructions Recorded Confirmed Type Pantoprazole Sodium [Protonix] 40 mg PO DAILY 01/31/14 04/10/17 History Atorvastatin [Lipitor] 10 mg PO HS 07/18/14 04/10/17 History Ascorbic Acid [Vitamin C] 500 mg PO HS 02/05/16 04/10/17 History Ferrous Sulfate [Iron (65 MG 325 mg PO HS 02/05/16 04/10/17 History Elemental)] Insulin Glargine,Hum.rec.anlog 5 units SQ DAILY 02/05/16 04/10/17 History [Toujeo Solostar] Losartan [Cozaar] 25 mg PO HS 06/21/16 04/10/17 History Nitroglycerin Sl Tabs [Nitrostat] 0.4 mg SUBLINGUAL Q5M PRN 06/21/16 04/10/17 History Isosorbide Mononitrate ER [Imdur] 30 mg PO BID 12/25/16 04/10/17 History Tamsulosin HCl [Flomax] 0.4 mg PO QAM 12/27/16 04/10/17 History Cholestyramine (with Sugar) 4 gm PO BID 04/10/17 04/10/17 History [Questran] Furosemide [Lasix] 20 mg PO HS 04/10/17 04/10/17 History Furosemide [Lasix] 40 mg PO QAM 04/10/17 04/10/17 History Metoprolol Tartrate [Lopressor] 25 mg PO BID 04/10/17 04/10/17 History Spironolactone [Aldactone] 25 mg PO DAILY 04/10/17 04/10/17 History Allergies Allergy/AdvReac Type Severity Reaction Status Date / Time No Known Allergies Allergy Verified 04/10/17 18:31 Physical Exam Vitals: Vital Signs Temp Pulse Pulse Resp BP BP Pulse Ox 04/11/17 04:00 96.9 F L 62 18 133/68 94 L 04/11/17 00:00 98.0 F 60 18 139/62 100 04/10/17 21:31 96.7 F L 60 18 145/75 04/10/17 21:15 96.7 F L 60 18 145/75 98 04/10/17 21:09 97.8 F 73 18 157/73 98 04/10/17 20:35 73 18 139/60 97 04/10/17 19:21 62 18 156/74 97 04/10/17 18:37 14 04/10/17 18:16 61 20 158/60 92 L 04/10/17 16:45 98.0 F 63 18 166/74 98 Intake and Output 04/10/17 04/11/17 04/11/17 22:59 06:59 14:59 Output Total 1100 Balance -1100 Output: Urine 1100 Other: # Voids 1 Weight 75 kg 76.6 kg Results CBC & Chem 7: 04/11/17 05:16 04/11/17 05:16 Labs: Abnormal Lab Results - Last 24 Hours (Table) 04/10/17 04/10/17 04/10/17 Range/Units 18:05 18:05 18:05 RBC 3.67 L (4.30-5.90) m/uL Hgb 11.6 L (13.0-17.5) gm/dL Hct 36.4 L (39.0-53.0) % RDW 17.2 H (11.5-15.5) % Plt Count 116 L (150-450) k/uL Lymphocytes # 0.4 L (1.0-4.8) k/uL PT (9.0-12.0) sec INR (<1.2) Potassium 5.4 H (3.5-5.1) mmol/L Chloride 118 H (98-107) mmol/L Carbon Dioxide 15 L (22-30) mmol/L BUN 48 H (9-20) mg/dL Creatinine 1.28 H (0.66-1.25) mg/dL Glucose 148 H (74-99) mg/dL POC Glucose (mg/dL) (75-99) mg/dL Hemoglobin A1c (4.2-6.1) % Magnesium 2.5 H (1.6-2.3) mg/dL Total Bilirubin 2.3 H (0.2-1.3) mg/dL Alkaline Phosphatase 156 H (38-126) U/L Total Creatine Kinase (55-170) U/L CK-MB (CK-2) 4.3 H* (0.0-2.4) ng/mL Total Protein 6.2 L (6.3-8.2) g/dL Urine Blood (Negative) Hyaline Casts (0-2) /lpf 04/10/17 04/10/17 04/10/17 Range/Units 18:05 18:05 21:27 RBC (4.30-5.90) m/uL Hgb (13.0-17.5) gm/dL Hct (39.0-53.0) % RDW (11.5-15.5) % Plt Count (150-450) k/uL Lymphocytes # (1.0-4.8) k/uL PT 12.3 H (9.0-12.0) sec INR 1.2 H (<1.2) Potassium (3.5-5.1) mmol/L Chloride (98-107) mmol/L Carbon Dioxide (22-30) mmol/L BUN (9-20) mg/dL Creatinine (0.66-1.25) mg/dL Glucose (74-99) mg/dL POC Glucose (mg/dL) 102 H (75-99) mg/dL Hemoglobin A1c 7.2 H (4.2-6.1) % Magnesium (1.6-2.3) mg/dL Total Bilirubin (0.2-1.3) mg/dL Alkaline Phosphatase (38-126) U/L Total Creatine Kinase (55-170) U/L CK-MB (CK-2) (0.0-2.4) ng/mL Total Protein (6.3-8.2) g/dL Urine Blood (Negative) Hyaline Casts (0-2) /lpf 04/10/17 04/11/17 04/11/17 Range/Units 23:20 00:10 05:16 RBC 3.52 L (4.30-5.90) m/uL Hgb 11.3 L (13.0-17.5) gm/dL Hct 34.9 L (39.0-53.0) % RDW 16.8 H (11.5-15.5) % Plt Count 129 L (150-450) k/uL Lymphocytes # 0.5 L (1.0-4.8) k/uL PT (9.0-12.0) sec INR (<1.2) Potassium (3.5-5.1) mmol/L Chloride (98-107) mmol/L Carbon Dioxide (22-30) mmol/L BUN (9-20) mg/dL Creatinine (0.66-1.25) mg/dL Glucose (74-99) mg/dL POC Glucose (mg/dL) (75-99) mg/dL Hemoglobin A1c (4.2-6.1) % Magnesium (1.6-2.3) mg/dL Total Bilirubin (0.2-1.3) mg/dL Alkaline Phosphatase (38-126) U/L Total Creatine Kinase (55-170) U/L CK-MB (CK-2) 4.0 H* (0.0-2.4) ng/mL Total Protein (6.3-8.2) g/dL Urine Blood Trace H (Negative) Hyaline Casts 29 H (0-2) /lpf 04/11/17 04/11/17 Range/Units 05:16 05:16 RBC (4.30-5.90) m/uL Hgb (13.0-17.5) gm/dL Hct (39.0-53.0) % RDW (11.5-15.5) % Plt Count (150-450) k/uL Lymphocytes # (1.0-4.8) k/uL PT (9.0-12.0) sec INR (<1.2) Potassium (3.5-5.1) mmol/L Chloride 116 H (98-107) mmol/L Carbon Dioxide 16 L (22-30) mmol/L BUN 51 H (9-20) mg/dL Creatinine 1.30 H (0.66-1.25) mg/dL Glucose (74-99) mg/dL POC Glucose (mg/dL) (75-99) mg/dL Hemoglobin A1c (4.2-6.1) % Magnesium (1.6-2.3) mg/dL Total Bilirubin 3.1 H (0.2-1.3) mg/dL Alkaline Phosphatase 160 H (38-126) U/L Total Creatine Kinase 49 L (55-170) U/L CK-MB (CK-2) 3.8 H* (0.0-2.4) ng/mL Total Protein 6.0 L (6.3-8.2) g/dL Urine Blood (Negative) Hyaline Casts (0-2) /lpf
[2017-04-11] MEDS: SODIUM BICARBONATE TAB 650 MG TAB PO SCH ×2 (10:53→20:26)
[2017-04-11 11:57] LABS: Glucose,Whole Blood 96 mg/dL (75-99)
[2017-04-11 12:19] LABS: Hemoglobin A1C 6.1 % (4.2-6.1)
--- NOTE | 2017-04-11 12:25 | ECHOF ---
Referral Reason:chf MEASUREMENTS -------- HEIGHT: 170.2 cm WEIGHT: 76.2 kg BP: 133/68 RVIDd: 3.7 cm (< 3.3) IVSd: 1.4 cm (0.6 - 1.1) LVIDd: 5.9 cm (3.9 - 5.3) LVPWd: 1.4 cm (0.6 - 1.1) IVSs: 2.1 cm LVIDs: 4.0 cm LVPWs: 2.1 cm LAESV Index (A-L): 42.50 ml/m Ao Diam: 3.0 cm (2.0 - 3.7) AV Cusp: 0.7 cm (1.5 - 2.6) MV EXCURSION: 17.007 mm (> 18.000) MV EF SLOPE: 80 mm/s (70 - 150) EPSS: 1.4 cm MV E Hemant: 1.44 m/s MV DecT: 168 ms MV A Hemant: 0.60 m/s MV E/A Ratio: 2.39 AV maxP.00 mmHg AV meanP.53 mmHg AR PHT: 569 ms RAP: 5.00 mmHg RVSP: 71.31 mmHg FINDINGS -------- Paced rhythm. This was a technically adequate study. There is moderate concentric left ventricular hypertrophy. Overall left ventricular systolic function is normal with, an EF between 60 - 65 %. The right ventricle is mild to moderately enlarged. LA is severely dilated >40 ml/m2 Electronic pacemaker lead seen in the right ventricular cavity. RA appears enlarged. Aortic valve is trileaflet and is severely thickened. There is mild aortic regurgitation. The aortic pressure half-time by doppler is 569ms. Moderate to severe aortic stenosis with peak/mean pressure gradient of 57.00mmHg / 30.53mmHg, the aortic valve area by continuity equation is 0.8cm. The mitral valve leaflets are mild to moderately thickened. Moderate mitral annular calcification present. [id number] mitral regurgitation is present. Moderate to severe tricuspid regurgitation present. There is severe pulmonary hypertension. The right ventricular systolic pressure, as measured by Doppler, is 71.31mmHg. Trace/mild (physiologic) pulmonic regurgitation. The aortic root size is normal. The inferior vena cava is dilated with poor inspiratory collapse which is consistent with estimated right atrial pressure of 20 mmHg. The pericardium is normal. There is no pericardial effusion. CONCLUSIONS -------- 1. Paced rhythm. 2. There is mild aortic regurgitation. 3. The aortic pressure half-time by doppler is 569ms. 4. The mitral valve leaflets are mild to moderately thickened. 5. Moderate mitral annular calcification present. 6. [id number] mitral regurgitation is present. 7. Moderate to severe tricuspid regurgitation present. 8. There is severe pulmonary hypertension. 9. The right ventricular systolic pressure, as measured by Doppler, is 71.31mmHg. 10. Trace/mild (physiologic) pulmonic regurgitation. 11. The aortic root size is normal. 12. This was a technically adequate study. 13. The inferior vena cava is dilated with poor inspiratory collapse which is consistent with estimated right atrial pressure of 20 mmHg. 14. There is no pericardial effusion. 15. There is moderate concentric left ventricular hypertrophy. 16. Overall left ventricular systolic function is normal with, an EF between 60 - 65 %. 17. The right ventricle is mild to moderately enlarged. 18. LA is severely dilated >40 ml/m2 19. Electronic pacemaker lead seen in the right ventricular cavity. 20. RA appears enlarged. 21. Aortic valve is trileaflet and is severely thickened. COMPUTER ENGINEERING PROFESSOR: Oleg Garcia RDCS
[2017-04-11 17:16] LABS: Glucose,Whole Blood 77 mg/dL (75-99)
[2017-04-11] MEDS: DONEPEZIL 5 MG TAB PO SCH (20:25)
[2017-04-11] MEDS: ATORVASTATIN 10 MG TAB PO SCH (20:25)
[2017-04-11] MEDS: ASCORBIC ACID 500 MG TAB PO SCH (20:25)
[2017-04-11] MEDS: LOSARTAN 25 MG TAB PO SCH (20:26)
[2017-04-11 20:43] LABS: Glucose,Whole Blood 165 mg/dL (75-99)
--- NOTE | 2017-04-11 22:02 | US ---
EXAMINATION TYPE: US abdomen comp/pelvis limited DATE OF EXAM: 04/11/2017 COMPARISON: CT abdomen and pelvis January 11, 2017 CLINICAL HISTORY: Chronic kidney disease, urinary retention, nephrol. Limited exam due to language barrier and patient hard breathing. Poor historian. EXAM MEASUREMENTS: Liver Length: 12.1 cm CBD: 0.8 cm CHD: 0.4 cm Spleen: 14.1 cm Right Kidney: 11.2 x 4.9 x 5.7 cm Left Kidney: 11.5 x 4.8 x 5.6 cm Pancreas: body and tail not seen due to overlying bowel gas Liver: Heterogenous.Hepatic veins appear prominent. Gallbladder: Obscured by overlying bowel gas CBD: CHD appears WNL, Spleen: enlarged, no focal lesions seen. Right Kidney: Cystic appearing lesions seen. Largest seen laterally with septation identified = 6.0 x 4.4 x 4.6 cm. Left Kidney: cystic appearing lesions seen. Largest seen laterally = 2.4 x 2.3 x 2.3 cm Upper IVC: wnl Abd Aorta: portions obscured by overlying bowel gas Bladder: Distended, portions obscured by bowel gas. Bilateral Jets not Right pelvic cystic lesion seen = 3.2 x 3.3 x 3.0 cm Right pleural effusion seen Exam is suboptimal per technologist due to patient noncooperation possibly due to language barrier. V isualized liver is heterogeneous in appearance. Evaluation for focal masses is suboptimal due to the heterogeneity. Targeted shaped hyperechoic areas are marked by technologist uncertain etiology is no distinct lesions were seen on recent CT. New lesions cannot be excluded. Cystic lesions throughout both kidneys are present, prominent exophytic hemorrhagic or proteinaceous cyst is noted on the right. There is 3 cm thin-walled cystic lesion near bladder corresponds to lesio n anterior to bladder on CT of uncertain etiology. Spleen is enlarged. IMPRESSION: 1. Splenomegaly redemonstrated. 2. Heterogeneous liver remains present throughout felt to reflect product of diffuse fatty infiltrati on or underlying hepatocellular disease. Cannot exclude new intrahepatic masses. Further investigatio n with multi phase contrast-enhanced CT or MRI is advised. 3. Suboptimal study. 4. A 3 cm thin-walled cystic lesion in the pelvis near bladder of uncertain etiology but favored bonnie gn.
[2017-04-12] MEDS: INSULIN LISPRO (humaLOG) 300 UNIT/3 ML VIAL SQ SCH ×4 (06:28→21:26)
[2017-04-12] MEDS: PANTOPRAZOLE 40 MG TABLET PO SCH (06:29)
[2017-04-12 06:42] LABS: Glucose,Whole Blood 114 mg/dL (75-99)
[2017-04-12 07:20] LABS: Anisocytosis Slight; Basophils % (A) 1 %; CH 31.8; CHCM 32.6; Eosinophils # (A) 0.2 k/uL (0-0.7); Eosinophils % (A) 4 %; HCT 35.2 % (39.0-53.0); HDW 3.04; HGB 11.2 gm/dL (13.0-17.5); Luc % (Auto) 2; Lymphocytes # (A) 0.4 k/uL (1.0-4.8); Lymphocytes % (A) 6 %; MCH 31.1 pg (25.0-35.0); MCHC 31.7 g/dL (31.0-37.0); MCV 98.3 fL (80.0-100.0); Macrocytosis Slight; Mean Platelet Volume 7.9; Monocytes # (A) 0.5 k/uL (0-1.0); Monocytes % (A) 7 %; Neutrophils # (A) 5.5 k/uL (1.3-7.7); Neutrophils % (A) 81 %; RBC 3.58 m/uL (4.30-5.90); RDW 16.8 % (11.5-15.5); WBC 6.7 k/uL (3.8-10.6); WBC (Perox) 7.18
[2017-04-12 07:24] LABS: Anion Gap 10 mmol/L; Blood Urea Nitrogen 52 mg/dL (9-20); Calcium 9.3 mg/dL (8.4-10.2); Carbon Dioxide 18 mmol/L (22-30); Chloride 115 mmol/L (98-107); GGT 252 U/L (15-73); Glucose 108 mg/dL (74-99); Non-African American GFR(MDRD) >60 (>60 ml/min/1.73 sqM); Potassium 4.4 mmol/L (3.5-5.1); Sodium 143 mmol/L (137-145)
[2017-04-12] MEDS: FUROSEMIDE 10 MG/ML 4 ML VIAL IV SCH ×2 (09:22→21:26)
[2017-04-12] MEDS: METOPROLOL TARTRATE 25 MG TAB PO SCH ×2 (09:25→21:26)
[2017-04-12] MEDS: DIGOXIN 125 MCG TAB PO SCH (09:26)
[2017-04-12] MEDS: SODIUM BICARBONATE TAB 650 MG TAB PO SCH ×3 (09:26→21:27)
[2017-04-12] MEDS: ISOSORBIDE MONONITRATE ER 30 MG TAB.ER.24H PO SCH ×2 (09:26→21:26)
[2017-04-12] MEDS: CITALOPRAM HYDROBROMIDE 10 MG TAB PO SCH (09:26)
[2017-04-12] MEDS: SPIRONOLACTONE 25 MG TAB PO SCH (09:27)
[2017-04-12] MEDS: TAMSULOSIN 0.4 MG CAP.ER.24H PO SCH (09:28)
[2017-04-12 12:13] LABS: Glucose,Whole Blood 124 mg/dL (75-99)
--- NOTE | 2017-04-12 14:29 | P.PN ---
Subjective Principal diagnosis: CHF This is an 87-year-old gentleman with known history of coronary artery disease, prior myocardial infarction, prior bypass surgery, ischemic cardiomyopathy with prior AICD implantation, chronic persistent atrial fibrillation, hypertension, hyperlipidemia, dementia, who presented to the hospital with symptoms of progressively worsening shortness of breath. The Chest x-ray on admission revealed mild congestive heart failure with increasing pleural fluid on the right side as compared to prior. EKG shows a ventricular paced rhythm with underlying atrial fibrillation. Troponins 0.016, 0.026, 0.021. BNP level 10,600. Free T4 1 0.3, TSH 3.6. Blood pressure 132/ 60 with a heart rate in the 60s. 94% on room air. On follow-up with the patient today he is feeling better in terms of shortness of breath. History of have diminished breathing sounds bilaterally. Objective - Vital Signs Vital signs: Vital Signs Temp 96.7 F L 04/12/17 12:00 Pulse 64 04/12/17 12:00 Resp 18 04/12/17 12:00 BP 108/48 04/12/17 12:00 Pulse Ox 93 L 04/12/17 12:00 Intake & Output 04/11/17 04/12/17 04/12/17 18:59 06:59 18:59 Intake Total 504 254 Balance 504 254 Weight 72.5 kg Intake: IV 24 14 0.9 NS 10 Invasive Line 1 14 14 Oral 480 240 - Constitutional General appearance: Present: no acute distress - Respiratory Respiratory: bilateral: diminished - Cardiovascular Heart sounds: normal: S1, S2 Abnormal Heart Sounds: Present: systolic murmur - Labs CBC & Chem 7: 04/12/17 06:35 04/12/17 06:35 Labs: Abnormal Lab Results - Last 24 Hours (Table) 04/11/17 04/11/17 04/12/17 Range/Units 05:16 20:42 06:26 RBC (4.30-5.90) m/uL Hgb (13.0-17.5) gm/dL Hct (39.0-53.0) % RDW (11.5-15.5) % Plt Count (150-450) k/uL Lymphocytes # (1.0-4.8) k/uL Chloride (98-107) mmol/L Carbon Dioxide (22-30) mmol/L BUN (9-20) mg/dL Glucose (74-99) mg/dL POC Glucose (mg/dL) 165 H 114 H (75-99) mg/dL GGT (15-73) U/L PTH Intact 12.5 L (14.0-72.0) pg/mL 04/12/17 04/12/17 04/12/17 Range/Units 06:35 06:35 12:01 RBC 3.58 L (4.30-5.90) m/uL Hgb 11.2 L (13.0-17.5) gm/dL Hct 35.2 L (39.0-53.0) % RDW 16.8 H (11.5-15.5) % Plt Count 130 L (150-450) k/uL Lymphocytes # 0.4 L (1.0-4.8) k/uL Chloride 115 H (98-107) mmol/L Carbon Dioxide 18 L (22-30) mmol/L BUN 52 H (9-20) mg/dL Glucose 108 H (74-99) mg/dL POC Glucose (mg/dL) 124 H (75-99) mg/dL GGT 252 H (15-73) U/L PTH Intact (14.0-72.0) pg/mL Microbiology - Last 24 Hours (Table) 04/10/17 23:20 Urine Culture - Final Urine,Voided Assessment and Plan Plan: This is a pleasant 87-year-old gentleman with a known CAD, cardiomyopathy, valvular heart disease, as well as multiple comorbid conditions was admitted to the hospital was congestive heart failure exacerbation secondary to systolic dysfunction. I am going to continue the patient on the current above dose of Lasix. Continue monitor the kidney function and electrolytes. Follow-up with the patient.
[2017-04-12 17:22] LABS: Glucose,Whole Blood 100 mg/dL (75-99)
[2017-04-12 20:54] LABS: Glucose,Whole Blood 205 mg/dL (75-99)
[2017-04-12] MEDS: ASCORBIC ACID 500 MG TAB PO SCH (21:25)
[2017-04-12] MEDS: ATORVASTATIN 10 MG TAB PO SCH (21:26)
[2017-04-12] MEDS: DONEPEZIL 5 MG TAB PO SCH (21:26)
[2017-04-12] MEDS: LOSARTAN 25 MG TAB PO SCH (21:26)
[2017-04-13 06:17] LABS: Glucose,Whole Blood 98 mg/dL (75-99)
[2017-04-13 06:46] LABS: Anisocytosis Slight; Basophils # (A) 0.1 k/uL (0-0.2); Basophils % (A) 1 %; CH 32.4; CHCM 33.3; Eosinophils # (A) 0.2 k/uL (0-0.7); Eosinophils % (A) 4 %; HCT 34.3 % (39.0-53.0); HDW 3.01; Luc # (Auto) 0.07; Luc % (Auto) 1; Lymphocytes # (A) 0.4 k/uL (1.0-4.8); Lymphocytes % (A) 8 %; MCH 31.3 pg (25.0-35.0); MCHC 31.9 g/dL (31.0-37.0); MCV 98.2 fL (80.0-100.0); Macrocytosis Slight; Mean Platelet Volume 8.4; Monocytes # (A) 0.4 k/uL (0-1.0); Monocytes % (A) 7 %; Neutrophils # (A) 4.7 k/uL (1.3-7.7); Neutrophils % (A) 80 %; RDW 17.3 % (11.5-15.5); WBC 5.8 k/uL (3.8-10.6); WBC (Perox) 6.05
[2017-04-13 07:00] LABS: Anion Gap 13 mmol/L; Blood Urea Nitrogen 48 mg/dL (9-20); Calcium 9.3 mg/dL (8.4-10.2); Carbon Dioxide 21 mmol/L (22-30); Chloride 109 mmol/L (98-107); Glucose 88 mg/dL (74-99); Non-African American GFR(MDRD) >60 (>60 ml/min/1.73 sqM); Potassium 4.1 mmol/L (3.5-5.1); Sodium 143 mmol/L (137-145)
[2017-04-13] MEDS: INSULIN LISPRO (humaLOG) 300 UNIT/3 ML VIAL SQ SCH ×4 (07:35→21:56)
[2017-04-13] MEDS: PANTOPRAZOLE 40 MG TABLET PO SCH (09:43)
[2017-04-13] MEDS: SODIUM BICARBONATE TAB 650 MG TAB PO SCH ×3 (09:44→19:59)
[2017-04-13] MEDS: METOPROLOL TARTRATE 25 MG TAB PO SCH ×2 (09:44→23:16)
[2017-04-13] MEDS: SPIRONOLACTONE 25 MG TAB PO SCH (09:44)
[2017-04-13] MEDS: CITALOPRAM HYDROBROMIDE 10 MG TAB PO SCH (09:44)
[2017-04-13] MEDS: ISOSORBIDE MONONITRATE ER 30 MG TAB.ER.24H PO SCH ×2 (09:44→20:00)
[2017-04-13] MEDS: DIGOXIN 125 MCG TAB PO SCH (09:44)
[2017-04-13] MEDS: FUROSEMIDE 10 MG/ML 4 ML VIAL IV SCH ×3 (09:44→23:16)
[2017-04-13] MEDS: TAMSULOSIN 0.4 MG CAP.ER.24H PO SCH (09:45)
[2017-04-13 11:29] LABS: Glucose,Whole Blood 130 mg/dL (75-99)
--- NOTE | 2017-04-13 11:53 | CDI ---
In responding to this query, please exercise your independent professional judgment. The [facility] Coding Staff and Clinical Documentation Specialists appreciate your assistance in clarifying documentation, maintaining compliance with coding guidelines, accurately documenting patients condition and capturing severity of illness. The fact that a question is asked does not imply that any particular answer is desired or expected. Communication forms are a method of clarifying documentation and are not made part of the Legal Health Record. Thank you in advance for your clarification. Last Revision, July 2015 Kelsey Collins [address] [facility] [place] [address] Documentation Clarification Form Date: 04/13/2017 11:43:00 AM From: Najma Gonzales CCS, CCDS Admit Date: 04/10/2017 8:27:00 PM Patient Name: Megan Garzon Visit Number: [id number] Discharge Date: Dr. Dionte Elizalde: History/Risk Factors: 87 yo male, presents with difficulty breathing with edema of the lower extremities and diagnosed with Acute on Chronic combined CHF. Per the History & Physical the patient has a history of chronic kidney disease, CAD, CHF & Atrial Fibrillation. 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 Treatment: IV Lasix, IV Narcan, IV Zofran, Insulin sc, admit to telemetry, PT, O2 2Lnc. Consults: Cardiology In order to capture the severity of condition, please clarify if the condition signifies: CKD Stage 1 (GFR > 90) CKD Stage 2 (GFR 60-89) CKD Stage 3 (GFR 30-59) CKD Stage 4 (GFR 15-29) CKD Stage 5 (GFR <15) ESRD Unable to determine Other condition, please specify Please document in your progress notes and discharge summary in order to capture severity of illness and risk of mortality. Include clinical findings that support your diagnosis. FYI: Press F11 to launch patient chart MTDD
[2017-04-13] MEDS: CHOLESTYRAMINE (WITH SUGAR) 4 GM PACKET PO SCH ×2 (11:55→18:37)
--- NOTE | 2017-04-13 12:26 | P.PN ---
Subjective Principal diagnosis: CHF This is an 87-year-old gentleman with known history of coronary artery disease, prior myocardial infarction, prior bypass surgery, ischemic cardiomyopathy with prior AICD implantation, chronic persistent atrial fibrillation, hypertension, hyperlipidemia, dementia, who presented to the hospital with symptoms of progressively worsening shortness of breath. The Chest x-ray on admission revealed mild congestive heart failure with increasing pleural fluid on the right side as compared to prior. EKG shows a ventricular paced rhythm with underlying atrial fibrillation. Troponins 0.016, 0.026, 0.021. BNP level 10,600. Free T4 1 0.3, TSH 3.6. Blood pressure 132/ 60 with a heart rate in the 60s. 94% on room air. On follow-up with the patient today he is feeling better in terms of shortness of breath. History of have diminished breathing sounds bilaterally. He continues to have mild bilateral lower extremities edema. In term off bloodwork, the creatinine continues to be stable. We'll continue the patient on Lasix IV for additional 24 hours for possible discharge home tomorrow. Objective - Vital Signs Vital signs: Vital Signs Temp 96.9 F L 04/13/17 04:00 Pulse 63 04/13/17 08:00 Resp 18 04/13/17 08:00 BP 128/55 04/13/17 08:00 Pulse Ox 94 L 04/13/17 08:00 Intake & Output 04/12/17 04/13/17 04/13/17 18:59 06:59 18:59 Intake Total 384 240 240 Balance 384 240 240 Weight 72 kg Intake: IV 24 0.9 NS 10 Invasive Line 1 14 Oral 360 240 240 Other: # Voids 2 3 - Constitutional General appearance: Present: no acute distress - Respiratory Respiratory: bilateral: diminished - Cardiovascular Rhythm: regular Heart sounds: normal: S1, S2 Abnormal Heart Sounds: Present: systolic murmur - Labs CBC & Chem 7: 04/13/17 06:06 04/13/17 06:02 Labs: Abnormal Lab Results - Last 24 Hours (Table) 04/12/17 04/12/17 04/13/17 Range/Units 17:15 20:53 06:02 RBC (4.30-5.90) m/uL Hgb (13.0-17.5) gm/dL Hct (39.0-53.0) % RDW (11.5-15.5) % Plt Count (150-450) k/uL Lymphocytes # (1.0-4.8) k/uL Chloride 109 H (98-107) mmol/L Carbon Dioxide 21 L (22-30) mmol/L BUN 48 H (9-20) mg/dL POC Glucose (mg/dL) 100 H 205 H (75-99) mg/dL 04/13/17 04/13/17 Range/Units 06:06 11:28 RBC 3.50 L (4.30-5.90) m/uL Hgb 11.0 L (13.0-17.5) gm/dL Hct 34.3 L (39.0-53.0) % RDW 17.3 H (11.5-15.5) % Plt Count 130 L (150-450) k/uL Lymphocytes # 0.4 L (1.0-4.8) k/uL Chloride (98-107) mmol/L Carbon Dioxide (22-30) mmol/L BUN (9-20) mg/dL POC Glucose (mg/dL) 130 H (75-99) mg/dL Microbiology - Last 24 Hours (Table) 04/12/17 13:00 Stool for WBCs - Final Stool 04/10/17 23:20 Urine Culture - Final Urine,Voided Assessment and Plan Plan: This is a pleasant 87-year-old gentleman with a known CAD, cardiomyopathy, valvular heart disease, as well as multiple comorbid conditions was admitted to the hospital was congestive heart failure exacerbation secondary to systolic dysfunction. I am going to continue the patient on the current above dose of Lasix. Continue monitor the kidney function and electrolytes. Follow-up with the patient.
--- NOTE | 2017-04-13 15:32 | PN ---
Age: 87 FULL CODE. NEW DATA: Height 5 feet 7 inches, weight 72.5 kg. BSA 1.84, BMI 25. ALLERGIES: Unknown. The patient is admitted with acute congestive heart failure with peripheral edema and also found that he had hyperchloremic metabolic acidosis probably associated with the Questran and that was held. On todays evaluation, discussion with his daughter, the caregiver, her white count is 6.7 today. Hemoglobin 11.2 with hematocrit 35.2. Platelet count 130 with underlying thrombocytopenia, they related that with history of cirrhosis in the past. However, was unclear. On the chemistry today, also found that he had sodium 143 , potassium 4.4 in spite that he is on IV Lasix and dieresis. His chloride still elevated at 115 and carbon dioxide is 18 in spite that we started him on the sodium bicarb twice a day and will be repeating the lab tomorrow with possible improvement as meanwhile probably we will be increasing to three times a day. Blood sugar 108 and controlled very well with CBG and no long-acting insulin. His calcium is 9.3 with GGT 252 with the normal range is 73 which is indicating definitely underlying chronic liver disease that could be associated with cirrhosis in the past, full past history unknown to me and unknown to the daughter and his C. difficile was negative. Currently as I did see the patient today, evaluation, he said his bowel movement is normal. No diarrhea. No loose bowels. No water stools, diarrhea, not present at this time per patient. His vital signs indicating temperature 96.7 and his blood pressure 108/48 with a mean 68, prior to that was 147/81 with a mean 103. His oxygen on room air was 96 and 93. He had urinalysis and that was no growth in 18 hours and as mentioned the laboratory was indicating also mild anemia, hemoglobin 11.2 with hematocrit 35.2 and mild thrombocytopenia. He has however in spite the hyperchloremic metabolic acidosis as mentioned probably could be present with the Questran which has been discontinued and he has elevated GGT with normal no evidence of C. difficile. His hemoglobin however is stable from the admission on the fourth of 11.6 and currently 11.2. His platelet count is improving from 116 on admission to 130 at this time. His protime and INR was minimally elevated and PT 12.3 and INR 1.2. He had history of TURP in the past and the Digoxin level done on April 11, which was normal. He had protocol for hypoglycemia as well as he has been on medication which including and cardiology did seem him currently because on admission his potassium was elevated we adjusted the dose of Spironolactone to be 12.5 mg once a day. His edema is present at this time, still present 2+ with mild improvement, no significant improvement at this point. He needs maybe SCDs as well. Was ordered before, however, the patient if he is accepting to have it on or not, that is the question we have entertained. He has physical therapy ordered, PT and OT and we will be planning for laboratory in the morning as well as. His current examination, his blood pressure is fluctuating at this time. The patient is conscious, alert and oriented times three. He has mild hearing deficits. Oropharynx was good. Good oral hygiene and caps. Neck was supple. Chest was clear to auscultation and minimal decrease in the air entry of the bases and his presacral edema has resolved and the heart was he has a pacemaker with chronic atrial fibrillation and pacemaker defibrillator AICD. Abdomen is soft. Positive bowel sounds. Extremities good perfusion. However, he had still pitting edema and he needs atherosclerotic stockings or SCDs to be applied while he is in bed. ASSESSMENT: Underlying congestive heart failure and with paced rhythm. He had mild aortic regurgitation and he had aortic also moderate mitral calcification and he had mitral regurgitation and severe tricuspid regurgitation and severe pulmonary hypertension. He had with the right ventricular systolic pressure is 71, 0.31. he had systolic ejection fraction 60 to 65 which indicating underlying diastolic dysfunction and his right ventricular moderately enlarged and the left atrium severely dilated and electronic pacemaker with the diastolic acute, diastolic acute congestive heart failure with the aortic valve severely thickened. That was excluding the systolic dysfunction with mainly now his diastolic per the echocardiogram. Cardiology, Dr. Gatica did see the patient as well and his impression is that the patient has ischemic cardiomyopathy and AICD and he has history of persistent atrial fibrillation as well as myocardial infarction and coronary artery disease. FINAL IMPRESSION: He had systolic congestive heart failure, acute on top of chronic and ischemic cardiomyopathy and coronary artery disease with bypass graft times two and hypertension with hypertensive heart disease and chronic persistent atrial fibrillation and hyperlipidemia and dementia. We will continue the IV Lasix as he recommended and the patient appeared to be improving and will add the SCDs and labs in the morning. Dr. Sethi will follow the patient in the morning. SURAJ
[2017-04-13 16:15] LABS: Glucose,Whole Blood 151 mg/dL (75-99)
[2017-04-13] MEDS: ASCORBIC ACID 500 MG TAB PO SCH (19:59)
[2017-04-13] MEDS: LOSARTAN 25 MG TAB PO SCH (19:59)
[2017-04-13] MEDS: ATORVASTATIN 10 MG TAB PO SCH (20:00)
[2017-04-13] MEDS: DONEPEZIL 5 MG TAB PO SCH (20:00)
[2017-04-13 20:52] LABS: Glucose,Whole Blood 170 mg/dL (75-99)
[2017-04-14] MEDS: HEPARIN SODIUM,PORCINE 5,000 UNIT/ML 1 ML VIAL SQ SCH ×3 (00:37→22:39)
[2017-04-14 05:55] LABS: Anion Gap 11 mmol/L; Blood Urea Nitrogen 47 mg/dL (9-20); Calcium 9.4 mg/dL (8.4-10.2); Carbon Dioxide 25 mmol/L (22-30); Chloride 106 mmol/L (98-107); Glucose 108 mg/dL (74-99); Non-African American GFR(MDRD) 57 (>60 ml/min/1.73 sqM); Potassium 4.1 mmol/L (3.5-5.1); Sodium 142 mmol/L (137-145)
[2017-04-14 06:31] LABS: Glucose,Whole Blood 111 mg/dL (75-99)
[2017-04-14] MEDS: INSULIN LISPRO (humaLOG) 300 UNIT/3 ML VIAL SQ SCH ×4 (06:45→22:39)
[2017-04-14] MEDS: PANTOPRAZOLE 40 MG TABLET PO SCH (06:46)
[2017-04-14] MEDS: SODIUM BICARBONATE TAB 650 MG TAB PO SCH ×3 (07:54→22:40)
[2017-04-14] MEDS: CITALOPRAM HYDROBROMIDE 10 MG TAB PO SCH (07:54)
[2017-04-14] MEDS: ISOSORBIDE MONONITRATE ER 30 MG TAB.ER.24H PO SCH ×2 (07:54→22:40)
[2017-04-14] MEDS: SPIRONOLACTONE 25 MG TAB PO SCH (07:54)
[2017-04-14] MEDS: METOPROLOL TARTRATE 25 MG TAB PO SCH ×2 (07:54→22:40)
[2017-04-14] MEDS: DIGOXIN 125 MCG TAB PO SCH (07:54)
[2017-04-14] MEDS: TAMSULOSIN 0.4 MG CAP.ER.24H PO SCH (07:55)
[2017-04-14] MEDS: FUROSEMIDE 10 MG/ML 4 ML VIAL IV SCH ×2 (08:00→16:48)
[2017-04-14] MEDS: CHOLESTYRAMINE (WITH SUGAR) 4 GM PACKET PO SCH ×2 (10:57→22:36)
--- NOTE | 2017-04-14 10:57 | PN ---
DATE OF SERVICE: 04/13/17 CHIEF COMPLAINT: Reevaluation. HISTORY OF PRESENT ILLNESS: This 87-gentleman was admitted to the hospital with shortness of breath and evidence suggestive of CHF. The patients CHF is significant for diastolic dysfunction. He has sputum and right sided failure with pulmonary hypertension and significant tricuspid regurgitation associated with peripheral edema. He also has cirrhosis of the liver related to probably chronic cardiac right sided failure. He has associated splenomegaly. REVIEW OF SYSTEMS: NEURO: Denies any headaches. Dizziness. PSYCH: Some dementia. CARDIAC: No chest pain, angina or palpitations. RESPIRATORY: Denies shortness of breath, cough, hemoptysis. GI: No nausea, vomiting, abdominal pain. Had some diarrhea. : No symptoms of dysuria or hematuria. EXTREMITIES: No pain. Has edema. CONSTITUTIONAL: No fever or chills. PHYSICAL EXAM: Pleasant gentleman in no distress. Vital signs reveals temperature 96.9. Pulse 80, respirations 18. Blood pressure 128/55. Pulse ox 94% on room air. HEENT: Normocephalic. Neck 2 to 3+ JVD. No carotid bruits. Chest examination some dullness to percussion right base. Cardiac distant heart sounds S1, S2 with no gallops, irregular rhythm. Systolic murmur 2/6 left sterna border. Abdomen soft. Bowel sounds active. Extremities reveal edema. Neurological: Awake, alert and oriented to person and place. Moves both upper and lower extremities adequately. Laboratory assessment: CBC shows hemoglobin 11. Electrolytes are sodium 143. Potassium 4.4. Chloride 109. CO2 count 41. BUN 48. Creatinine 1.1. Glucose 88. Echocardiogram reveals pulmonary hypertension. Ultrasound of the abdomen reveals increased hepatic vein pressures. Enlarged spleen. Cystic kidneys. ASSESSMENT: 1. Acute congestive cardiac failure secondary to diastolic dysfunction improved. 2. Predominant right sided congestive cardiac failure associated with pulmonary hypertension. 3. Cardiac cirrhosis. 4. Splenomegaly. 5. Mild dementia. PLAN: The patient is stable. Continue present medical regimen. Continue diuretics. The patient's condition discussed with the patients daughter. Prognosis remains guarded. Reintroduce Questran. Questran not to be taken with medications. MTDD
[2017-04-14 12:05] LABS: Glucose,Whole Blood 113 mg/dL (75-99)
[2017-04-14 16:11] VITALS: RESP 16
[2017-04-14 17:09] LABS: Glucose,Whole Blood 221 mg/dL (75-99)
[2017-04-14 20:09] LABS: Glucose,Whole Blood 209 mg/dL (75-99)
[2017-04-14] MEDS: ASCORBIC ACID 500 MG TAB PO SCH (22:36)
[2017-04-14] MEDS: DONEPEZIL 5 MG TAB PO SCH (22:37)
[2017-04-14] MEDS: ATORVASTATIN 10 MG TAB PO SCH (22:37)
[2017-04-14] MEDS: LOSARTAN 25 MG TAB PO SCH (22:40)
[2017-04-15] MEDS: FUROSEMIDE 10 MG/ML 4 ML VIAL IV SCH ×2 (00:39→08:40)
[2017-04-15 07:32] LABS: Glucose,Whole Blood 122 mg/dL (75-99)
[2017-04-15] MEDS: INSULIN LISPRO (humaLOG) 300 UNIT/3 ML VIAL SQ SCH (08:06)
[2017-04-15] MEDS ORDERED: FUROSEMIDE 40 MG TAB PO STA (08:40)
[2017-04-15] MEDS: HEPARIN SODIUM,PORCINE 5,000 UNIT/ML 1 ML VIAL SQ SCH (08:42)
[2017-04-15] MEDS: TAMSULOSIN 0.4 MG CAP.ER.24H PO SCH (08:43)
[2017-04-15] MEDS: SODIUM BICARBONATE TAB 650 MG TAB PO SCH (08:43)
[2017-04-15] MEDS: ISOSORBIDE MONONITRATE ER 30 MG TAB.ER.24H PO SCH (08:43)
[2017-04-15] MEDS: SPIRONOLACTONE 25 MG TAB PO SCH (08:44)
[2017-04-15] MEDS: DIGOXIN 125 MCG TAB PO SCH (08:44)
[2017-04-15] MEDS: PANTOPRAZOLE 40 MG TABLET PO SCH (08:44)
[2017-04-15] MEDS: METOPROLOL TARTRATE 25 MG TAB PO SCH (08:44)
[2017-04-15] MEDS: CITALOPRAM HYDROBROMIDE 10 MG TAB PO SCH (08:44)
[2017-04-15 08:49] LABS: Anion Gap 10 mmol/L; Blood Urea Nitrogen 51 mg/dL (9-20); Carbon Dioxide 26 mmol/L (22-30); Chloride 105 mmol/L (98-107); Glucose 114 mg/dL (74-99); Non-African American GFR(MDRD) 59 (>60 ml/min/1.73 sqM); Potassium 3.6 mmol/L (3.5-5.1); Sodium 141 mmol/L (137-145)
[2017-04-15 09:37] VITALS: BP 126/59; PULSE 65; TEMP 97.8
--- NOTE | 2017-04-15 16:50 | PN ---
DATE OF SERVICE: 04/14/17 CHIEF COMPLAINT: Reevaluation. HISTORY OF PRESENT ILLNESS: This 87-gentleman was admitted to the hospital with shortness of breath. The patient has evidence of congestive cardiac failure secondary to diastolic dysfunction and has a predominant right sided failure with pulmonary hypertension. He also has evidence of cardiac cirrhosis of the liver. The patient has mild dementia as well. He is doing better. REVIEW OF SYSTEMS: NEURO: Denies any headaches. Dizziness. PSYCH: No anxiety. CARDIAC: No chest pain, angina or palpitations. RESPIRATORY: Denies shortness of breath. Does have some cough. No hemoptysis. GI: No nausea, vomiting, abdominal pain, diarrhea. : No symptoms of dysuria or hematuria. EXTREMITIES: No pain. Has decreased edema. CONSTITUTIONAL: No fever or chills. PHYSICAL EXAM: Pleasant gentleman in no distress. Vital signs reveals temperature 98.1. Pulse 61, respirations 18. Blood pressure 105/52. Pulse ox 96% on room air. HEENT: Normocephalic. 1+ JVD. Chest examination clear to auscultation with decreased air flow at the right base. The patient has dullness to percussion right base. Cardiac distant heart sounds S1, S2 with no gallops. Systolic murmur 2/6 left sternal border, regular rhythm. Abdomen soft. Bowel sounds active. Extremities reveal 1+ edema. Neurological: Awake, alert and oriented with well coordinated movements. Laboratory assessment: Electrolytes which are normal. BUN 47, creatinine 1.2. Glucose 108. Calcium 9.4. ASSESSMENT: 1. Acute congestive cardiac failure secondary to diastolic dysfunction improved. 2. Right sided congestive cardiac failure. 3. Known history of chronic kidney disease Stage III. 4. Pulmonary hypertension. 5. Diabetes mellitus. 6. Mild cognitive impairment. PLAN: Continue present medical regimen. The patient's condition discussed with the patient and daughter. Continue IV Lasix at 40 mg IV push every eight hours. Potential discharge home tomorrow. MILENAD
--- NOTE | 2017-04-16 09:11 | PN ---
DATE OF SERVICE: 04/15/17 CHIEF COMPLAINT: Reevaluation. HISTORY OF PRESENT ILLNESS: This is an 87-gentleman was admitted to the hospital with CHF. The patient is actually feeling much better. He has significant pulmonary hypertension and right sided cardiac failure. The patient s edema is markedly improved. REVIEW OF SYSTEMS: NEURO: Denies any headaches. Dizziness. PSYCH: No anxiety. History of mild cognitive impairment. CARDIAC: No chest pain, angina or palpitations. RESPIRATORY: Denies shortness of breath. PND or orthopnea. GI: No nausea, vomiting, abdominal pain, diarrhea. : No symptoms of dysuria or hematuria. EXTREMITIES: Decreased edema. CONSTITUTIONAL: No fever or chills. PHYSICAL EXAM: Pleasant gentleman in no distress. Vital signs reveals temperature 97.8. Pulse 65, respirations 16. Blood pressure 126/59. Pulse ox 94% on room air. HEENT: Normocephalic. Neck no JVD. Chest examination clear to auscultation with dullness to percussion right base. Cardiac distant heart sounds S1, S2 with no gallops. Systolic murmur 2/6 at the apex. Abdomen soft. Bowel sounds active. Extremities reveal trace edema right ankle. Neurological: Awake, alert and oriented place, person, moves both upper and lower extremities. Is and Os reveals the patients weight is down to 63 kg which is felt to be not very accurate, 69.4 kg yesterday. Laboratory assessment: Electrolytes which are normal. BUN 51, creatinine 1.17. ASSESSMENT: 1. Acute congestive cardiac failure secondary to diastolic dysfunction improved. 2. Pulmonary hypertension. 3. Right sided congestive cardiac failure, improved. 4. Pacemaker status. 5. Coronary artery disease. 6. History of chronic kidney disease Stage III. 7. History of congestive cirrhosis of the liver. PLAN: Continue present medical regimen. The patient will be discharged home today. The patient will resume s Lasix 40 mg in the morning and 20 in the evening. Advised not to take medications with Questran. The Questran helps the diarrhea. The patients condition discussed with the daughter. SURAJ
== END 2017-04-15 09:46 | disposition home health service (06) | DRG 291 ==
LOC: EC 16:36 → 6SEL 20:27 → 5MS5E 04-14 11:10
PROVIDERS: ADMIT Internal Medicine; ATTEND Internal Medicine
DX: I13.0 Hypertensive heart and chronic kidney disease with heart failure and stage 1 through stage 4 chronic kidney disease, or unspecified chronic kidney disease (principal); I50.43 Acute on chronic combined systolic (congestive) and diastolic (congestive) heart failure; E87.2 Acidosis; I27.2 Other secondary pulmonary hypertension; E11.22 Type 2 diabetes mellitus with diabetic chronic kidney disease; I48.1 Persistent atrial fibrillation; K76.1 Chronic passive congestion of liver; N18.3 Chronic kidney disease, stage 3 (moderate); I25.5 Ischemic cardiomyopathy; I25.10 Atherosclerotic heart disease of native coronary artery without angina pectoris; I25.2 Old myocardial infarction; I48.2 Chronic atrial fibrillation; K74.60 Unspecified cirrhosis of liver; Z79.4 Long term (current) use of insulin; Z79.899 Other long term (current) drug therapy; D63.8 Anemia in other chronic diseases classified elsewhere; E78.5 Hyperlipidemia, unspecified; E87.5 Hyperkalemia; F02.80 Dementia in other diseases classified elsewhere, unspecified severity, without behavioral disturbance, psychotic disturbance, mood disturbance, and anxiety; G30.9 Alzheimer's disease, unspecified; I08.3 Combined rheumatic disorders of mitral, aortic and tricuspid valves; Z82.49 Family history of ischemic heart disease and other diseases of the circulatory system; Z82.5 Family history of asthma and other chronic lower respiratory diseases; Z87.891 Personal history of nicotine dependence; Z95.1 Presence of aortocoronary bypass graft; Z95.5 Presence of coronary angioplasty implant and graft; Z95.810 Presence of automatic (implantable) cardiac defibrillator
CPT/HCPCS: 36415; 71020; 76700; 76857; 80048; 80053; 80162; 81001; 82550; 82553; 82977; 83036; 83540; 83550; 83735; 83880; 83970; 84439; 84443; 84484; 84550; 85025; 85610; 85730; 87086; 87177; 87207; 87209; 87324; 89055; 93005; 93306; 96374; 99285

== ENCOUNTER 2017-04-21 09:11 | Emergency (ER) | payer MEDICARE, BC ==
[2017-04-21 09:32] VITALS: TEMP 97.7
[2017-04-21] MEDS ORDERED: FUROSEMIDE 10 MG/ML 4 ML VIAL IV STA ×2 (09:40→11:44)
--- NOTE | 2017-04-21 09:43 | ED ---
SOB HPI - General Chief Complaint: Shortness of Breath Stated Complaint: CHF Time Seen by Provider: 04/21/17 09:32 Source: patient, family, RN notes reviewed, old records reviewed Mode of arrival: wheelchair Limitations: no limitations - History of Present Illness Initial Comments: This is a 87-year-old male who was brought in by his family for complaints of shortness of breath and exertional dyspnea. He also had edema to his lower extremities. He was just discharged from the hospital about 4-5 days ago for congestive heart failure. He has progressively worsening edema. Also weakness per his daughter he just stays in bed all day he is up-to-date and was back to bed. No reports of fevers chills sweats or chest pain. MD Complaint: shortness of breath - Related Data Home Medications Medication Instructions Recorded Confirmed Pantoprazole Sodium [Protonix] 40 mg PO DAILY 01/31/14 04/21/17 Atorvastatin [Lipitor] 10 mg PO HS 07/18/14 04/21/17 Ascorbic Acid [Vitamin C] 500 mg PO HS 02/05/16 04/21/17 Ferrous Sulfate [Iron (65 MG 325 mg PO HS 02/05/16 04/21/17 Elemental)] Insulin Glargine,Hum.rec.anlog 5 units SQ DAILY 02/05/16 04/21/17 [Tounatividad Solostar] Losartan [Cozaar] 25 mg PO HS 06/21/16 04/21/17 Nitroglycerin Sl Tabs [Nitrostat] 0.4 mg SUBLINGUAL Q5M PRN 06/21/16 04/21/17 Isosorbide Mononitrate ER [Imdur] 30 mg PO BID 12/25/16 04/21/17 Tamsulosin HCl [Flomax] 0.4 mg PO QAM 12/27/16 04/21/17 Cholestyramine (with Sugar) 4 gm PO BID 04/10/17 04/21/17 [Questran Packet] Furosemide [Lasix] 20 mg PO HS 04/10/17 04/21/17 Furosemide [Lasix] 40 mg PO QAM 04/10/17 04/21/17 Spironolactone [Aldactone] 25 mg PO DAILY 04/10/17 04/21/17 Previous Rx's Medication Instructions Recorded Digoxin [Lanoxin] 125 mcg PO DAILY #0 07/24/14 Citalopram Hydrobromide [CeleXA] 10 mg PO DAILY tab 12/30/16 Donepezil [Aricept] 5 mg PO HS tab 12/30/16 Aspirin 81 mg PO DAILY #30 chewable 04/15/17 Metoprolol Tartrate [Lopressor] 25 mg PO BID tab 04/15/17 Allergies Allergy/AdvReac Type Severity Reaction Status Date / Time No Known Allergies Allergy Verified 04/21/17 09:32 Review of Systems ROS Statement: Those systems with pertinent positive or pertinent negative responses have been documented in the HPI. ROS Other: All systems not noted in ROS Statement are negative. Past Medical History Past Medical History: Coronary Artery Disease (CAD), Chest Pain / Angina, Heart Failure, Diabetes Mellitus, GI Bleed, Hyperlipidemia, Hypertension, Memory Impairment, Osteoarthritis (OA), Prostate Disorder, Renal Disease, Skin Disorder Additional Past Medical History / Comment(s): ANEMIA, IRON DEFICIENCY. RECENT SL COUGH. Memory loss has been progressivley getting worse. HAS PRE-CA LESIONS FACE. cysts on kidney, incont of urine. PER PT'S DAUGHTER, EVER SINCE GALL BLADDER SX PT HAS HAD LOOSE STOOLS- UNABLE TO OBTAIN HOW OFTEN History of Any Multi-Drug Resistant Organisms: None Reported Past Surgical History: AICD, Appendectomy, Cholecystectomy, Coronary Bypass/CABG , Heart Catheterization With Stent, Prostate Surgery, Tonsillectomy Additional Past Surgical History / Comment(s): AICD, ST CECE. CABG 1982 [id number]. 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 TURP, HAD BATTERY TO AICD CHANGED. RT EYE SX(FLUID BEHIND EYE). Past Anesthesia/Blood Transfusion Reactions: No Reported Reaction Additional Past Anesthesia/Blood Transfusion Reaction / Comment(s): LAST TRANSFUSION 12/2013 Date of Last Stent Placement:: 2008 Type of Cardiac Device: Permanent Pacemaker, AICD Device Placement Date:: 2008 Past Psychological History: Anxiety Smoking Status: Former smoker - Past Family History Mother Family Medical History: Diabetes Mellitus Father Additional Family Medical History / Comment(s): emphysema General Exam - General Exam Comments Initial Comments: This is a well-developed asthenic appearing male he is awake and alert Limitations: no limitations General appearance: alert, in no apparent distress Head exam: Present: atraumatic, normocephalic, normal inspection Eye exam: Present: normal appearance, PERRL, EOMI. Absent: scleral icterus, conjunctival injection, periorbital swelling ENT exam: Present: mucous membranes dry Neck exam: Present: normal inspection. Absent: tenderness, meningismus, lymphadenopathy Respiratory exam: Present: decreased breath sounds. Absent: respiratory distress, wheezes, rales, rhonchi, stridor Cardiovascular Exam: Present: normal rhythm, bradycardia, normal heart sounds, systolic murmur. Absent: diastolic murmur, rubs, gallop, clicks GI/Abdominal exam: Present: soft, normal bowel sounds. Absent: distended, tenderness, guarding, rebound, rigid Extremities exam: Present: normal inspection, full ROM, normal capillary refill , pedal edema (Pedal edema more so on the right than the left upper the knees). Absent: tenderness, joint swelling, calf tenderness Back exam: Present: normal inspection Neurological exam: Present: alert, oriented X3, CN II-XII intact Psychiatric exam: Present: normal affect, normal mood Skin exam: Present: warm, dry, intact, normal color. Absent: rash Course Vital Signs 04/21/17 04/21/17 04/21/17 09:29 09:55 10:32 Temperature 97.7 F Pulse Rate 57 L 63 Respiratory 17 18 18 Rate Blood Pressure 124/62 129/60 O2 Sat by Pulse 98 99 Oximetry Medical Decision Making - Medical Decision Making Reevaluation patient reveals he is diuresing and feeling better. I did discuss the findings with the patient and family as well as with Dr. Sethi the plan is to diurese the patient in emergency department and discharged home the Lasix dose will be increased to 40 twice a day from the current 40 and morning and 20 in the evening. Patient is a follow-up with Dr. Sethi - Lab Data Result diagrams: 04/21/17 09:55 04/21/17 09:55 Lab Results 04/21/17 04/21/17 04/21/17 Range/Units 09:55 09:55 09:55 WBC 7.5 (3.8-10.6) k/uL RBC 3.49 L (4.30-5.90) m/uL Hgb 11.0 L (13.0-17.5) gm/dL Hct 34.1 L (39.0-53.0) % MCV 97.6 (80.0-100.0) fL MCH 31.4 (25.0-35.0) pg MCHC 32.2 (31.0-37.0) g/dL RDW 16.8 H (11.5-15.5) % Plt Count 110 L (150-450) k/uL Neutrophils % 84 % Lymphocytes % 5 % Monocytes % 6 % Eosinophils % 3 % Basophils % 1 % Neutrophils # 6.3 (1.3-7.7) k/uL Lymphocytes # 0.3 L (1.0-4.8) k/uL Monocytes # 0.5 (0-1.0) k/uL Eosinophils # 0.3 (0-0.7) k/uL Basophils # 0.0 (0-0.2) k/uL Anisocytosis Slight Macrocytosis Slight PT (9.0-12.0) sec INR (<1.2) APTT (22.0-30.0) sec Sodium 143 (137-145) mmol/L Potassium 4.1 (3.5-5.1) mmol/L Chloride 113 H (98-107) mmol/L Carbon Dioxide 21 L (22-30) mmol/L Anion Gap 9 mmol/L BUN 60 H (9-20) mg/dL Creatinine 1.21 (0.66-1.25) mg/dL Est GFR (MDRD) Af Amer >60 (>60 ml/min/1.73 sqM) Est GFR (MDRD) Non-Af 57 (>60 ml/min/1.73 sqM) Glucose 176 H (74-99) mg/dL Calcium 8.5 (8.4-10.2) mg/dL Magnesium 2.2 (1.6-2.3) mg/dL Total Bilirubin 2.8 H (0.2-1.3) mg/dL AST 26 (17-59) U/L ALT 53 (21-72) U/L Alkaline Phosphatase 207 H (38-126) U/L Total Creatine Kinase 30 L (55-170) U/L CK-MB (CK-2) 1.9 (0.0-2.4) ng/mL CK-MB (CK-2) Rel Index 6.3 Troponin I 0.033 (0.000-0.034) ng/mL NT-Pro-B Natriuret Pep pg/mL Total Protein 5.9 L (6.3-8.2) g/dL Albumin 3.4 L (3.5-5.0) g/dL 04/21/17 04/21/17 Range/Units 09:55 09:55 WBC (3.8-10.6) k/uL RBC (4.30-5.90) m/uL Hgb (13.0-17.5) gm/dL Hct (39.0-53.0) % MCV (80.0-100.0) fL MCH (25.0-35.0) pg MCHC (31.0-37.0) g/dL RDW (11.5-15.5) % Plt Count (150-450) k/uL Neutrophils % % Lymphocytes % % Monocytes % % Eosinophils % % Basophils % % Neutrophils # (1.3-7.7) k/uL Lymphocytes # (1.0-4.8) k/uL Monocytes # (0-1.0) k/uL Eosinophils # (0-0.7) k/uL Basophils # (0-0.2) k/uL Anisocytosis Macrocytosis PT 12.2 H (9.0-12.0) sec INR 1.2 H (<1.2) APTT 23.7 (22.0-30.0) sec Sodium (137-145) mmol/L Potassium (3.5-5.1) mmol/L Chloride (98-107) mmol/L Carbon Dioxide (22-30) mmol/L Anion Gap mmol/L BUN (9-20) mg/dL Creatinine (0.66-1.25) mg/dL Est GFR (MDRD) Af Amer (>60 ml/min/1.73 sqM) Est GFR (MDRD) Non-Af (>60 ml/min/1.73 sqM) Glucose (74-99) mg/dL Calcium (8.4-10.2) mg/dL Magnesium (1.6-2.3) mg/dL Total Bilirubin (0.2-1.3) mg/dL AST (17-59) U/L ALT (21-72) U/L Alkaline Phosphatase (38-126) U/L Total Creatine Kinase (55-170) U/L CK-MB (CK-2) (0.0-2.4) ng/mL CK-MB (CK-2) Rel Index Troponin I (0.000-0.034) ng/mL NT-Pro-B Natriuret Pep 9060 pg/mL Total Protein (6.3-8.2) g/dL Albumin (3.5-5.0) g/dL - EKG Data -: EKG Interpreted by Me (Ventricular paced rhythm at 62 QRS of 280 QT since QTC of 502/509 occasiona) - Radiology Data Radiology results: report reviewed (I did review the imaging and report or is evidence of CHF comparison with the previous x-ray shows minimal change.), image reviewed Disposition Clinical Impression: Congestive heart failure (CHF) Disposition: HOME SELF-CARE Condition: Good Instructions: Heart Failure (ED), Leg Edema (ED) Additional Instructions: Change the current Lasix dosing to 40 mg twice a day follow up with Dr. Sethi in the office and return when necessary Referrals: Boni Sethi MD [Primary Care Provider] - 1-2 days
[2017-04-21 09:57] VITALS: RESP 18
[2017-04-21 10:04] LABS: Anisocytosis Slight; Basophils % (A) 1 %; CH 32.3; CHCM 33.4; Eosinophils # (A) 0.3 k/uL (0-0.7); Eosinophils % (A) 3 %; HCT 34.1 % (39.0-53.0); HDW 2.97; Luc # (Auto) 0.07; Luc % (Auto) 1; Lymphocytes # (A) 0.3 k/uL (1.0-4.8); Lymphocytes % (A) 5 %; MCH 31.4 pg (25.0-35.0); MCHC 32.2 g/dL (31.0-37.0); MCV 97.6 fL (80.0-100.0); Macrocytosis Slight; Mean Platelet Volume 9.8; Monocytes # (A) 0.5 k/uL (0-1.0); Monocytes % (A) 6 %; Neutrophils # (A) 6.3 k/uL (1.3-7.7); Neutrophils % (A) 84 %; RBC 3.49 m/uL (4.30-5.90); RDW 16.8 % (11.5-15.5); WBC 7.5 k/uL (3.8-10.6); WBC (Perox) 7.67
[2017-04-21 10:14] LABS: INR 1.2 (<1.2); Partial Thromboplastin Time 23.7 sec (22.0-30.0); Prothrombin Time 12.2 sec (9.0-12.0)
[2017-04-21 10:15] LABS: ALT 53 U/L (21-72); AST 26 U/L (17-59); Alkaline Phosphatase 207 U/L (38-126); Anion Gap 9 mmol/L; Blood Urea Nitrogen 60 mg/dL (9-20); Calcium 8.5 mg/dL (8.4-10.2); Carbon Dioxide 21 mmol/L (22-30); Chloride 113 mmol/L (98-107); Glucose 176 mg/dL (74-99); Magnesium 2.2 mg/dL (1.6-2.3); Non-African American GFR(MDRD) 57 (>60 ml/min/1.73 sqM); Potassium 4.1 mmol/L (3.5-5.1); Sodium 143 mmol/L (137-145); Total Bilirubin 2.8 mg/dL (0.2-1.3); Total Protein 5.9 g/dL (6.3-8.2)
--- NOTE | 2017-04-21 10:19 | XR ---
EXAMINATION TYPE: XR chest 2V DATE OF EXAM: 04/21/2017 COMPARISON: Prior chest x-ray 04/10/2017 HISTORY: Difficulty breathing TECHNIQUE: Frontal and lateral views of the chest are obtained. FINDINGS: Abnormal increased attenuation is present in the right middle, right upper lobe as on prio r exam. Patient is post median sternotomy and the heart remains enlarged. Interstitial and airspace c hanges are similar to prior exam. No evident pneumothorax. Right hemidiaphragm appears elevated. IMPRESSION: Findings suggest congestive heart failure, there may be postobstructive atelectasis, justyna ma, correlate to exclude pneumonia, there may be subpulmonic effusion. Follow-up recommended to annette weinstein.
[2017-04-21 10:49] LABS: Creatine Kinase MB 1.9 ng/mL (0.0-2.4); Troponin I 0.033 ng/mL (0.000-0.034)
[2017-04-21 11:24] VITALS: PULSE 63
[2017-04-21 12:27] VITALS: BP 153/66
== END 2017-04-21 12:48 | disposition home or self-care (01) ==
LOC: EC 09:11
DX: I50.9 Heart failure, unspecified (principal); I11.0 Hypertensive heart disease with heart failure; R00.1 Bradycardia, unspecified; E78.5 Hyperlipidemia, unspecified; I25.10 Atherosclerotic heart disease of native coronary artery without angina pectoris; E11.9 Type 2 diabetes mellitus without complications; D50.9 Iron deficiency anemia, unspecified; N42.9 Disorder of prostate, unspecified; N28.89 Other specified disorders of kidney and ureter; Z87.891 Personal history of nicotine dependence; Z79.4 Long term (current) use of insulin; Z79.899 Other long term (current) drug therapy; Z95.0 Presence of cardiac pacemaker; Z87.19 Personal history of other diseases of the digestive system; Z86.79 Personal history of other diseases of the circulatory system
CPT/HCPCS: 36415; 93005; 83880; 80053; 82550; 82553; 83735; 84484; 85025; 85610; 85730; 71020; 99285; 96374; 96375; J1940